=== PATIENT | female | born 1945 | race Caucasian/White ===

== ENCOUNTER → 2016-11-07 | Outpatient (CLI) | payer OTHER | LOC: FIMAGING 14:07 | PROVIDERS: ATTEND Physician Assistant Surgical | DX: Z98.1 Arthrodesis status (principal) ==

== ENCOUNTER → 2016-11-13 | Outpatient (CLI) | payer OTHER | LOC: FIMAGING 11:54 | PROVIDERS: ATTEND Physician Assistant Medical | DX: R91.8 Other nonspecific abnormal finding of lung field (principal); Z87.891 Personal history of nicotine dependence; I77.810 Thoracic aortic ectasia; I25.10 Atherosclerotic heart disease of native coronary artery without angina pectoris ==

== ENCOUNTER 2017-01-28 10:23 | Inpatient (IN) | payer OTHER ==
[2017-01-28] MEDS ORDERED: ONDANSETRON 4 MG/2 ML VIAL IVP PRN (10:54)
[2017-01-28] MEDS ORDERED: LIDOCAINE 1% 2 ML INJ ID PRN (11:00)
[2017-01-28] MEDS ORDERED: NS 500 ML IV SCH (11:00)
--- NOTE | 2017-01-28 11:20 | GHP ---
[f rep st] PREOP HISTORY AND PHYSICAL DATE OF ADMISSION: 01/28/2017 HISTORY OF PRESENT ILLNESS: The patient is a pleasant 72-year-old female, who underwent a thoracotomy with right lower lobe biopsy for a suspicious lung mass. No gross correlate was found at the time of surgery. Ultimately, pathology showed a calcified nodule consistent with a remote granuloma. She returned to our office today for routine postoperative followup. She is complaining of some pain and some shortness of breath at nighttime. She had been checking her oxygenation and was desaturating, at one time down to 72 at night. She used her 's oxygen. She says that she was up to 95% just yesterday during the day. The patient was sent for an x-ray prior to her appointment, and this revealed a pleural effusion and a significant pneumothorax. She denies fevers or chills. PAST MEDICAL HISTORY/SURGICAL HISTORY: Includes right lower lobe lobectomy as described above. Also history of a lumbar spinal fusion, total abdominal hysterectomy, C diff colitis in 2014, history of depression with anxiety, GERD, hypercholesteremia, pneumonia, and aortic aneurysm. MEDICATIONS: At home include: Oxycodone since her recent surgery, also vitamin B, simvastatin, fish oil, omeprazole, vitamin D3, calcium and vitamin C. ALLERGIES: Include amoxicillin, ciprofloxacin, clindamycin, penicillins and calamari. SOCIAL HISTORY: [place] [address] [place]. FAMILY HISTORY: No significant medical history. REVIEW OF SYSTEMS: A 10-point review of systems is negative aside from that noted in HPI. PHYSICAL EXAMINATION: GENERAL: Reveals a well-developed, well-nourished, 72- year-old female, who appears her stated age, is well groomed and in no acute distress. HEENT: Normocephalic, atraumatic. No pallor. Pupils equal and round. Sclerae white. CHEST: Decreased breath sounds and fremitus on the right side. Incision clean, dry, intact without erythema. CARDIAC: Regular rate and rhythm. ABDOMEN: Soft, nontender. EXTREMITIES: Warm and dry without edema. IMPRESSION: This is a 72-year-old female, status post right lower lobe lobectomy on 01/15/2017, now with a pneumothorax and pleural effusion. PLAN: Admit the patient for placement of a chest tube. We will do this in the Endoscopy suite today as soon as possible. The patient is currently comfortable. We have told her to expect at least a 2- to 3-day hospital stay. Risks and options have been discussed and she requests to proceed. Patient was also seen and examined by Dr. Smith. Also, we removed her jessie today in the clinic. /[id number]/MODL MTDD
[2017-01-28] MEDS ORDERED: LIDO/EPI 1% **Not for Epidural 20 ML MDV ONE (12:07)
[2017-01-28] MEDS ORDERED: MIDAZOLAM 2 MG/2 ML VIAL ONE (12:08)
[2017-01-28] MEDS ORDERED: fentaNYL 100 MCG/2 ML INJ ONE (12:08)
[2017-01-28] MEDS ORDERED: HYDROmorphONE/DILAUDID 1 MG/ML SYR ONE (13:00)
[2017-01-28] MEDS: HYDROmorphONE/DILAUDID 1 MG/ML SYR IVP PRN ×2 (13:03→13:21)
[2017-01-28] MEDS: KETOROLAC 15 MG/1 ML SDV IVP PRN (13:54)
[2017-01-28] MEDS: OXYCODONE/APAP 5/325 TAB PO PRN ×3 (14:33→22:00)
[2017-01-28] MEDS ORDERED: ESTROGENS CONJUGATED VG SCH (18:00)
[2017-01-28] MEDS ORDERED: CALCIUM 500 MG PO SCH (21:00)
[2017-01-28] MEDS ORDERED: NON-FORMULARY NEW DRUG (Simvastatin [Zocor] 20 MG) PO SCH (21:00)
[2017-01-28] MEDS ORDERED: NON-FORMULARY NEW DRUG (Fish Oil/Dha/Epa [Fish Oil 1,200 Mg Fish Oil] 1 EACH) PO SCH (21:00)
[2017-01-28] MEDS: ATORVASTATIN CALCIUM 10 MG TAB PO SCH (22:00)
[2017-01-28] MEDS: CALCIUM CARBONATE 500 MG TAB PO SCH (22:00)
[2017-01-28] MEDS: ASCORBIC ACID 500 MG TAB PO SCH (22:00)
[2017-01-28] MEDS: OMEGA-3 FATTY ACIDS 1,000 MG CAP PO SCH (22:00)
[2017-01-28] MEDS: DOCUSATE SODIUM 100 MG CAP PO SCH (22:00)
[2017-01-29] MEDS: KETOROLAC 15 MG/1 ML SDV IVP PRN ×2 (02:30→21:45)
[2017-01-29] MEDS: OXYCODONE/APAP 5/325 TAB PO PRN ×5 (05:21→23:23)
[2017-01-29] MEDS ORDERED: Herbals/Supplements -Info Only PO SCH (09:00)
[2017-01-29] MEDS ORDERED: NON-FORMULARY NEW DRUG (Esomeprazole Mag Trihydrate [Nexium] 40 MG) PO SCH (09:00)
[2017-01-29] MEDS: PANTOPRAZOLE SODIUM 40 MG TAB PO SCH (09:48)
[2017-01-29] MEDS: ASCORBIC ACID 500 MG TAB PO SCH ×2 (09:48→19:45)
[2017-01-29] MEDS: OMEGA-3 FATTY ACIDS 1,000 MG CAP PO SCH ×2 (09:48→19:46)
[2017-01-29] MEDS: DOCUSATE SODIUM 100 MG CAP PO SCH ×2 (09:48→19:46)
[2017-01-29] MEDS: CALCIUM CARBONATE 500 MG TAB PO SCH ×2 (09:48→19:46)
[2017-01-29] MEDS: VITAMIN B COMPLEX 1 EA CAP/TAB PO SCH (09:48)
--- NOTE | 2017-01-29 13:49 | GCON ---
[f rep st] CONSULTATION HISTORY OF PRESENT ILLNESS: The patient is a 72-year-old female originally referred to [facility] for evaluation of an abnormal CT scan. She had been following an ascending aortic dilatation with annual films including July 2015 and October 2016. Both of these films revealed a ground-glass op acity in the right lower lobe that appeared to have increased in size between those 2 dates from 1.3 to 1.7 cm. 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 She had also reported a remote history of pneumonia in the right lower lobe leaving an abnorm ality there since 1998. It has been seen on multiple scans in the past though she said she never sy d a biopsy. She had no symptoms but did have a substantial smoking history having quit at least 10 years prior. 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 Subsequently she had pulmonary function tests which were totally normal. She wa s referred to Dr. Smith for either wedge resection or lobectomy. The surgery itself occurred on , and she did undergo a lobectomy on the right side. There was also a wedge resection of a k nown right upper lobe granuloma as well as a biopsy of some abnormality seen on her diaphragm. That procedure itself seemed to be uncomplicated, and the pathology was benign in all cases. However, s he developed hypoxemia and chest discomfort, was seen in clinic, followed by a chest x-ray that show ed a pneumothorax on that side. She was subsequently readmitted, and a chest tube was placed on . She tolerated this procedure reasonably well and states that her pain is controlled right now using Percocet and Toradol without any difficulty. REVIEW OF SYSTEMS: Otherwise negative PAST MEDICAL HISTORY: Includes aortic aneurysm in the thorax as described above, hypercholesterolem ia, the pulmonary nodule as described. PAST SURGICAL HISTORY: Includes the recent thoracotomy. SOCIAL HISTORY: She has some alcohol but no alcohol-related illnesses. She is a former smoker of 1 -1/2 packs per day but quit in 2006. She was born in [place] and no IV drug use. FAMILY HISTORY: Noncontributory. ALLERGIES: Include penicillin. CURRENT MEDICATIONS: Tylenol, vitamin C, Lipitor, Colace, Dilaudid, Toradol, fish oil, Zofran, Perc ocet, Protonix. PHYSICAL EXAMINATION: VITAL SIGNS: She is afebrile. Heart rate was 81, blood pressure 131/64, res pirations 16, oxygen saturation was 95% on room air. GENERAL: She was awake and alert in no appare nt distress and able to speak in full sentences without using accessory muscles for breathing. HEEN T: Pupils equally round and reactive to light. Not icteric and not injected. Mucous membranes are moist without erythema or exudate. NECK: Supple without adenopathy or jugular vein distention. B reath sounds were mostly clear to auscultation bilaterally without wheezes, rubs, or rales. HEART: Regular rate and rhythm without murmurs. ABDOMEN: Soft, nontender, nondistended without hepatospl enomegaly. EXTREMITIES: Show no clubbing, cyanosis, or edema. NEUROLOGIC: Nonfocal, including cr anial nerves and deep tendon reflexes. SKIN: Warm and dry without evidence of rash. Chest tube did not show evidence of leak. OTHER OBJECTIVE DATA: Chest x-ray performed this morning shows moderate right pneumothorax with a c hest tube in the right lung base. The apex of the lung is about 4 cm from the top of the chest wall . ASSESSMENT AND PLAN: 1. Postoperative pneumothorax: The lung does not appear to be expanding very well. The chest tube may need to be repositioned or a needle drainage of the apical region may be necessary. I will try to discuss this with Dr. Smith in the near future. It may resolve on its own, or it is possible th at the lung will not fully re-expand in that space until a later date. In the short term, I suggest ed that she remain on oxygen not because of her saturation being low but to facilitate reabsorption of air out of that space. 2. Lung nodules: These are thankfully benign and not associated with cancer so no ongoing followup will be required. /[id number]/MODL
--- NOTE | 2017-01-29 19:02 | SOAPPROG ---
SOAP Progress Note Assessment/Plan: Assessment: COMFORTABLE IN DOING WELL BUT LUNG STILL NOT COMPLETELY EXPANDED/NO AIR LEAK ON CHEST TUBE DRAINAGE/DRAINAGE VOLUME DECREASED MAY NEED ADDITIONAL CHEST TUBE IF NOT IMPROVED Plan: CHEST X-RAY IN THE A.M. 01/29/17 19:01 Objective: Vital Signs Temp Pulse Resp BP Pulse Ox 36.3 C 76 13 127/80 H 98 01/29/17 16:00 01/29/17 16:00 01/29/17 16:00 01/29/17 16:00 01/29/17 16:00 01/28/17 01/29/17 01/30/17 05:59 05:59 05:59 Intake Total 810 Output Total 820 650 Balance -820 160 ICD10 Worksheet Patient Problems: Problems Problem Status Onset C. difficile colitis Acute 12/30/14
[2017-01-29] MEDS: ATORVASTATIN CALCIUM 10 MG TAB PO SCH (19:46)
[2017-01-29] MEDS ORDERED: CANN-EASE 2 GM TUBE TP PRN (23:30)
[2017-01-30] MEDS: OXYCODONE/APAP 5/325 TAB PO PRN ×4 (04:25→19:24)
--- NOTE | 2017-01-30 08:59 | SOAPPROG ---
SOAP Progress Note Assessment/Plan: Assessment: COMFORTABLE IN DOING WELL BUT LUNG STILL NOT COMPLETELY EXPANDED/NO AIR LEAK ON CHEST TUBE DRAINAGE/DRAINAGE VOLUME DECREASED MAY NEED ADDITIONAL CHEST TUBE IF NOT IMPROVED Plan: CHEST X-RAY IN THE A.M. 01/29/17 19:01 01/30/17 08:57 COMFORTABLE/ VS STABLE/ NO AIR LEAK BUT STILL NOT FULLY EXPANDED/ WILL PLACE APICAL PNEUMOCATH TODAY Objective: Vital Signs Temp Pulse Resp BP Pulse Ox 36.3 C 73 17 139/84 H 97 01/30/17 04:24 01/30/17 04:24 01/30/17 04:24 01/30/17 04:24 01/30/17 04:24 01/29/17 01/30/17 01/31/17 05:59 05:59 05:59 Intake Total 1310 500 Output Total 820 2440 Balance -820 -1130 500 ICD10 Worksheet Patient Problems: Problems Problem Status Onset C. difficile colitis Acute 12/30/14
[2017-01-30] MEDS: OMEGA-3 FATTY ACIDS 1,000 MG CAP PO SCH ×2 (10:08→20:28)
[2017-01-30] MEDS: DOCUSATE SODIUM 100 MG CAP PO SCH ×2 (10:09→20:28)
[2017-01-30] MEDS: VITAMIN B COMPLEX 1 EA CAP/TAB PO SCH (10:09)
[2017-01-30] MEDS: PANTOPRAZOLE SODIUM 40 MG TAB PO SCH (10:09)
[2017-01-30] MEDS: ASCORBIC ACID 500 MG TAB PO SCH ×2 (10:09→20:28)
[2017-01-30] MEDS: CALCIUM CARBONATE 500 MG TAB PO SCH ×2 (10:09→20:28)
[2017-01-30] MEDS ORDERED: LIDO/EPI 1% **Not for Epidural 20 ML MDV ONE (11:04)
[2017-01-30] MEDS ORDERED: MIDAZOLAM 2 MG/2 ML VIAL ONE (11:19)
[2017-01-30] MEDS ORDERED: fentaNYL 100 MCG/2 ML INJ ONE (11:19)
--- NOTE | 2017-01-30 15:21 | POSTOPPROG ---
Post Op Note Date of Operation: 01/30/17 Surgeon: Juanjose Smith Finance Manager: Radha Ruiz Anesthesiologist: Marko Montoya Anesthesia: GET(General Endotracheal) Pre-op Diagnosis: persistent pneumothorax Post-op Diagnosis: same Procedure: pneumocatheter placement Findings: lung re-expanded upon port procedure CXR Inf/Abcess present in the surg proc area at time of surgery?: No EBL: Minimal Complications: none Drains: Other (pneumocatheter)
[2017-01-30] MEDS: KETOROLAC 15 MG/1 ML SDV IVP PRN ×2 (15:44→23:11)
--- NOTE | 2017-01-30 15:51 | PDINTPN ---
Assistant [employer] Manager Progress Note Assessment/Plan: Assessment/PLAN: 72 F with growing ground glass infiltrate on screening cardiac CT originally admitted for resection and ended up with RLL lobectomy, wedge resection of RUL granuloma, and biopsy of right diaphragmatic nodule- all of which were benign. She was dc'd home which was 8975 feet and came to routine clinic followup where a CXR showed a right PTX. She was admitted for chest tube placement, but had incomplete expansion, so a second tube was placed 01/30/17. * PTX after procedure, likely exacerbated by increased altitude. Second tube resulted in near-complete resolution. Management per Dr. Smith, but ongoing observation for resolution and removal of tubes. Pain control adequate * Hypoxia- her saturations are fine on room air, but would continue with O2 to promote reabsorption * Abnormal CT scan- benign lesions. Objective: Vital Signs Temp Pulse Resp BP Pulse Ox 36.8 C 70 17 133/88 H 94 01/30/17 13:07 01/30/17 13:07 01/30/17 13:07 01/30/17 13:07 01/30/17 13:07 01/29/17 01/30/17 01/31/17 05:59 05:59 05:59 Intake Total 1310 500 Output Total 820 2440 Balance -820 -1130 500 Physical Exam - Physical Exam General Appearance: WD/WN, alert, no apparent distress EENT: PERRL/EOMI Neck: supple Respiratory: crackles (few right sided), No respiratory distress Cardiac/Chest: regular rate, rhythm, No edema Abdomen: non-tender, soft, No distended Skin: normal color, warm/dry Lymphatic: no adenopathy Extremities: No pedal edema Neuro/Psych: alert, normal mood/affect, oriented x 3 ICD10 Worksheet Patient Problems: Problems Problem Status Onset C. difficile colitis Acute 12/30/14
[2017-01-30] MEDS: ATORVASTATIN CALCIUM 10 MG TAB PO SCH (20:28)
[2017-01-31] MEDS: OXYCODONE/APAP 5/325 TAB PO PRN ×4 (00:50→19:37)
[2017-01-31] MEDS: KETOROLAC 15 MG/1 ML SDV IVP PRN ×2 (05:35→12:13)
[2017-01-31] MEDS: DOCUSATE SODIUM 100 MG CAP PO SCH ×2 (08:51→19:37)
[2017-01-31] MEDS: VITAMIN B COMPLEX 1 EA CAP/TAB PO SCH (08:51)
[2017-01-31] MEDS: OMEGA-3 FATTY ACIDS 1,000 MG CAP PO SCH ×2 (08:51→19:37)
[2017-01-31] MEDS: CALCIUM CARBONATE 500 MG TAB PO SCH ×2 (08:51→19:37)
[2017-01-31] MEDS: PANTOPRAZOLE SODIUM 40 MG TAB PO SCH (08:51)
[2017-01-31] MEDS: ASCORBIC ACID 500 MG TAB PO SCH ×2 (08:51→19:37)
--- NOTE | 2017-01-31 11:45 | SOAPPROG ---
SOAP Progress Note Assessment/Plan: Assessment: s/p wedge resection who returned with pneumo/effusion chest tube initially put out serous fluid but still had residual apical pneumo Pneumocath placed which nearly resolved the pneumothorax However, chest x ray this am is worse. I have asked dr eugene to place a larger bore chest tube under fluoro directed apically - the other two tubes can be removed S: Feeling better today. Disappointed about chest x ray results Both chest tubes examined separately and no air leak. Put back to Y connector suction Lungs with decreased breath sounds on right, clear on left Regular rate Plan: 01/31/17 11:40 Objective: Vital Signs Temp Pulse Resp BP Pulse Ox 36.6 C 70 12 126/81 H 96 01/31/17 07:53 01/31/17 07:53 01/31/17 07:53 01/31/17 07:53 01/31/17 07:53 01/30/17 01/31/17 02/01/17 05:59 05:59 05:59 Intake Total 1310 2130 Output Total 2440 2340 Balance -1130 -210 ICD10 Worksheet Patient Problems: Problems Problem Status Onset C. difficile colitis Acute 12/30/14
[2017-01-31] MEDS ORDERED: LIDOCAINE 1% 300 MG/30 ML SDV ONE (14:38)
[2017-01-31] MEDS ORDERED: fentaNYL 100 MCG/2 ML INJ ONE (15:17)
[2017-01-31] MEDS ORDERED: MIDAZOLAM 2 MG/2 ML VIAL ONE (15:18)
--- NOTE | 2017-01-31 16:21 | PDINTPN ---
Color Making Supervisor Progress Note Assessment/Plan: Assessment/PLAN: 72 F with growing ground glass infiltrate on screening cardiac CT originally admitted for resection and ended up with RLL lobectomy, wedge resection of RUL granuloma, and biopsy of right diaphragmatic nodule- all of which were benign. She was dc'd home which was 8975 feet and came to routine clinic followup where a CXR showed a right PTX. She was admitted for chest tube placement, but had incomplete expansion, so a second tube was placed 01/30/17. * PTX after procedure, likely exacerbated by increased altitude. Second tube resulted in near-complete resolution, but worse this AM. Back to IR for new chest tube * Hypoxia- her saturations are fine on room air, but would continue with O2 to promote reabsorption * Abnormal CT scan- benign lesions. 01/31/17 16:20 Objective: Vital Signs Temp Pulse Resp BP Pulse Ox 36.7 C 81 16 139/73 H 100 01/31/17 11:54 01/31/17 15:44 01/31/17 15:44 01/31/17 11:54 01/31/17 15:44 01/30/17 01/31/17 02/01/17 05:59 05:59 05:59 Intake Total 1310 2130 Output Total 2440 2340 Balance -1130 -210 Physical Exam - Physical Exam General Appearance: no apparent distress EENT: PERRL/EOMI Neck: supple Respiratory: lungs clear, normal breath sounds, No respiratory distress Cardiac/Chest: regular rate, rhythm, No edema Abdomen: soft, No distended Skin: normal color, warm/dry Lymphatic: no adenopathy Extremities: No pedal edema Neuro/Psych: alert, normal mood/affect, oriented x 3 ICD10 Worksheet Patient Problems: Problems Problem Status Onset C. difficile colitis Acute 12/30/14
[2017-01-31] MEDS: ATORVASTATIN CALCIUM 10 MG TAB PO SCH (19:37)
[2017-02-01] MEDS: OXYCODONE/APAP 5/325 TAB PO PRN ×6 (00:36→22:06)
--- NOTE | 2017-02-01 08:39 | SOAPPROG ---
SOAP Progress Note Assessment/Plan: Assessment: s/p wedge resection who returned with pneumo/effusion Had chest tube placed by IR yesterday and other 2 tubes removed. CXR improved Continue to suction due to air leak Lost IV access. Only need to replace IV if needs IV meds Patient is frustrated. Offered patient rep, declined for now. May ambulate off suction S: Feeling out of sorts. [place] abandoned last night. Some pain Lungs with breath sounds bilaterally Regular rate Changed saturated dressing by old chest tube site. 1 chamber air leak. Plan: 01/31/17 11:40 02/01/17 08:37 Objective: Vital Signs Temp Pulse Resp BP Pulse Ox 36.8 C 82 20 173/93 H 96 02/01/17 07:48 02/01/17 07:48 02/01/17 07:48 02/01/17 07:48 02/01/17 07:48 01/31/17 02/01/17 02/02/17 05:59 05:59 05:59 Intake Total 2130 1480 Output Total 2340 1023 Balance -210 457 ICD10 Worksheet Patient Problems: Problems Problem Status Onset C. difficile colitis Acute 12/30/14
[2017-02-01] MEDS: PANTOPRAZOLE SODIUM 40 MG TAB PO SCH (09:12)
[2017-02-01] MEDS: CALCIUM CARBONATE 500 MG TAB PO SCH ×2 (09:13→19:41)
[2017-02-01] MEDS: OMEGA-3 FATTY ACIDS 1,000 MG CAP PO SCH ×2 (09:13→19:41)
[2017-02-01] MEDS: ASCORBIC ACID 500 MG TAB PO SCH ×2 (09:13→19:41)
[2017-02-01] MEDS: VITAMIN B COMPLEX 1 EA CAP/TAB PO SCH (09:14)
[2017-02-01] MEDS: DOCUSATE SODIUM 100 MG CAP PO SCH ×2 (09:14→19:41)
[2017-02-01] MEDS: LIDOCAINE 5% 1 EA PATCH TD SCH (09:14)
[2017-02-01] MEDS: IBUPROFEN 800 MG TAB PO SCH ×3 (09:20→22:06)
--- NOTE | 2017-02-01 14:50 | PDINTPN ---
[employer]ward[employer] Progress Note Assessment/Plan: Assessment/PLAN: 72 F with growing ground glass infiltrate on screening cardiac CT originally admitted for resection and ended up with RLL lobectomy, wedge resection of RUL granuloma, and biopsy of right diaphragmatic nodule- all of which were benign. She was dc'd home which was 8975 feet and came to routine clinic followup where a CXR showed a right PTX. She was admitted for chest tube placement, but had incomplete expansion, so a second tube was placed 01/30/17. * PTX after procedure, likely exacerbated by increased altitude. Second tube resulted in near-complete resolution, but worse on 01/31, so new apical chest tube placed and others removed. Todays CXR shows tube coiled at apex with small residual PTX. Pleurevac shows air leak with cough only. May need to pull back on tube eventually depending on course. She is very frustrated (though calm and very nice) about her ordeal and felt a bit neglected by staff nurse overnight. Pain controlled this am with ibuprofen (toradol dc'd). IV access was lost and unable to regain, so keeping with po meds for now. * Hypoxia- her saturations are fine on room air, but would continue with O2 to promote reabsorption * Abnormal CT scan- benign lesions. Objective: Vital Signs Temp Pulse Resp BP Pulse Ox 36.6 C 85 16 110/68 94 02/01/17 11:27 02/01/17 11:27 02/01/17 11:27 02/01/17 11:27 02/01/17 11:27 01/31/17 02/01/17 02/02/17 05:59 05:59 05:59 Intake Total 2130 1480 Output Total 2340 1023 Balance -210 457 Physical Exam - Physical Exam General Appearance: WD/WN, alert, no apparent distress EENT: PERRL/EOMI Neck: supple Respiratory: lungs clear, decreased breath sounds Cardiac/Chest: regular rate, rhythm, No edema Abdomen: normal bowel sounds, non-tender, soft, No distended Skin: normal color, warm/dry Lymphatic: no adenopathy Extremities: No pedal edema Neuro/Psych: alert, normal mood/affect, oriented x 3 ICD10 Worksheet Patient Problems: Problems Problem Status Onset C. difficile colitis Acute 12/30/14
[2017-02-01] MEDS: ATORVASTATIN CALCIUM 10 MG TAB PO SCH (19:40)
[2017-02-01] MEDS: PATCH REMOVAL 1 EA PATCH TD SCH (22:38)
[2017-02-02] MEDS: OXYCODONE/APAP 5/325 TAB PO PRN ×5 (01:54→21:05)
[2017-02-02] MEDS: IBUPROFEN 800 MG TAB PO SCH ×3 (06:07→21:08)
[2017-02-02] MEDS: OMEGA-3 FATTY ACIDS 1,000 MG CAP PO SCH ×2 (10:13→20:52)
[2017-02-02] MEDS: ASCORBIC ACID 500 MG TAB PO SCH ×2 (10:13→20:52)
[2017-02-02] MEDS: DOCUSATE SODIUM 100 MG CAP PO SCH ×2 (10:13→21:09)
[2017-02-02] MEDS: LIDOCAINE 5% 1 EA PATCH TD SCH (10:14)
[2017-02-02] MEDS: VITAMIN B COMPLEX 1 EA CAP/TAB PO SCH (10:14)
[2017-02-02] MEDS: PANTOPRAZOLE SODIUM 40 MG TAB PO SCH (10:14)
[2017-02-02] MEDS: CALCIUM CARBONATE 500 MG TAB PO SCH ×2 (10:14→20:52)
--- NOTE | 2017-02-02 14:28 | SOAPPROG ---
SOAP Progress Note Assessment/Plan: Assessment: Plan: Objective: Vital Signs Temp Pulse Resp BP Pulse Ox 37.2 C 78 17 132/83 H 93 02/02/17 11:39 02/02/17 11:39 02/02/17 11:39 02/02/17 11:39 02/02/17 11:39 02/01/17 02/02/17 02/03/17 05:59 05:59 05:59 Intake Total 1480 200 500 Output Total 1023 2155 350 Balance 457 -1955 150 ICD10 Worksheet Patient Problems: Problems Problem Status Onset C. difficile colitis Acute 12/30/14
[2017-02-02] MEDS: ATORVASTATIN CALCIUM 10 MG TAB PO SCH (20:52)
[2017-02-02] MEDS: PATCH REMOVAL 1 EA PATCH TD SCH (21:08)
[2017-02-03] MEDS: OXYCODONE/APAP 5/325 TAB PO PRN ×4 (04:22→19:00)
[2017-02-03] MEDS: IBUPROFEN 800 MG TAB PO SCH (05:41)
[2017-02-03] MEDS: LIDOCAINE 5% 1 EA PATCH TD SCH (08:40)
[2017-02-03] MEDS: OMEGA-3 FATTY ACIDS 1,000 MG CAP PO SCH ×2 (08:44→21:44)
[2017-02-03] MEDS: ASCORBIC ACID 500 MG TAB PO SCH ×2 (08:44→21:44)
[2017-02-03] MEDS: CALCIUM CARBONATE 500 MG TAB PO SCH ×2 (08:45→21:44)
[2017-02-03] MEDS: PANTOPRAZOLE SODIUM 40 MG TAB PO SCH (08:45)
[2017-02-03] MEDS: DOCUSATE SODIUM 100 MG CAP PO SCH ×2 (08:45→21:41)
[2017-02-03] MEDS: VITAMIN B COMPLEX 1 EA CAP/TAB PO SCH (08:45)
[2017-02-03] MEDS: IBUPROFEN 600 MG TAB PO PRN ×2 (15:27→21:43)
--- NOTE | 2017-02-03 16:47 | SOAPPROG ---
SOAP Progress Note Assessment/Plan: Assessment/Plan: 72 Y F RLL resection, readmitted with PTX and pleural effusion after returning home to altitude. Seen with Dr. Smith. Many questions answered. Lung expanded now with single apical tube, but does have an air leak. Need to continue to suction. S: Understandably frustrated. No SOB. Pain controlled. O: +air leak min drainage, serous wounds ok no wob 02/03/17 16:45 Objective: Vital Signs Temp Pulse Resp BP Pulse Ox 36.9 C 103 H 20 139/82 H 92 02/03/17 15:33 02/03/17 15:33 02/03/17 15:33 02/03/17 15:33 02/03/17 15:33 02/02/17 02/03/17 02/04/17 05:59 05:59 05:59 Intake Total 200 830 300 Output Total 2203 2989 282 Balance -2005 -1670 -200 ICD10 Worksheet Patient Problems: Problems Problem Status Onset C. difficile colitis Acute 12/30/14
[2017-02-03] MEDS: FAMOTIDINE 20 MG TAB PO SCH (21:42)
[2017-02-03] MEDS: ATORVASTATIN CALCIUM 10 MG TAB PO SCH (21:43)
[2017-02-03] MEDS: PATCH REMOVAL 1 EA PATCH TD SCH (21:49)
[2017-02-04] MEDS: OXYCODONE/APAP 5/325 TAB PO PRN ×2 (02:46→11:23)
[2017-02-04] MEDS: IBUPROFEN 600 MG TAB PO PRN ×3 (07:11→20:15)
[2017-02-04] MEDS: VITAMIN B COMPLEX 1 EA CAP/TAB PO SCH (07:55)
[2017-02-04] MEDS: PANTOPRAZOLE SODIUM 40 MG TAB PO SCH (07:55)
[2017-02-04] MEDS: FAMOTIDINE 20 MG TAB PO SCH ×2 (07:55→20:16)
[2017-02-04] MEDS: OMEGA-3 FATTY ACIDS 1,000 MG CAP PO SCH ×2 (07:56→20:15)
[2017-02-04] MEDS: ASCORBIC ACID 500 MG TAB PO SCH ×2 (07:56→20:15)
[2017-02-04] MEDS: DOCUSATE SODIUM 100 MG CAP PO SCH ×3 (07:56→20:16)
[2017-02-04] MEDS: CALCIUM CARBONATE 500 MG TAB PO SCH ×2 (07:56→20:15)
[2017-02-04] MEDS: LIDOCAINE 5% 1 EA PATCH TD SCH (07:57)
[2017-02-04] MEDS ORDERED: BACITRACIN OINTMENT 1 PACKET TP ONE (10:14)
--- NOTE | 2017-02-04 11:47 | SOAPPROG ---
SOAP Progress Note Assessment/Plan: Assessment/Plan: 72 Y F RLL resection, readmitted with PTX and pleural effusion after returning home to altitude. Still an air leak. Will get CXR in am. Continue CT to suction. S: Trying to stay in good spirits. Family brought a goody bag with things to do. No SOB. Pain controlled. O: +air leak min drainage, serous wounds ok no wob 02/04/17 11:46 Objective: Vital Signs Temp Pulse Resp BP Pulse Ox 37.0 C 72 17 119/72 97 02/04/17 07:40 02/04/17 07:40 02/04/17 07:40 02/04/17 07:40 02/04/17 07:40 02/03/17 02/04/17 02/05/17 05:59 05:59 05:59 Intake Total 830 1150 Output Total 4764 1220 Balance -1670 -70 ICD10 Worksheet Patient Problems: Problems Problem Status Onset C. difficile colitis Acute 12/30/14
--- NOTE | 2017-02-04 18:24 | GOP ---
[f rep st] OPERATIVE REPORT DATE OF OPERATION: 01/28/2017 SURGEON: Juanjose Smith MD SPORTS ANCHOR: Radha Ruiz P.A.-C. PREOPERATIVE DIAGNOSIS: Right hemopneumothorax. POSTOPERATIVE DIAGNOSIS: Right hemopneumothorax. PROCEDURE PERFORMED: Right tube thoracostomy. FINDINGS: The patient was found to have over 600 mL of serous fluid. No real blood. A pneumothora x. ESTIMATED BLOOD LOSS: Negligible. DESCRIPTION OF PROCEDURE: The patient was taken to the special procedure room where she received sa tisfactory sedation with Versed and fentanyl. She was prepped and draped in the usual sterile fashi on. A short incision was made using 1% Xylocaine local infiltration over the 6th intercostal space in th e midaxillary line. Dissection extended up over the rib into the intercostal muscles, which were bl untly dissected and the chest wall was penetrated in that area, again using Xylocaine local for infi ltration. This released a fair amount of serous fluid and air. A #24-Kyrgyz chest tube was brought in through this incision and placed in the pleural space, with evacuation of nearly a liter of sero us fluid. It was secured to the exit site with 2-0 silk sutures and connected to a Pleur-Evac drain age system. She tolerated the procedure well. There were no complications. She was taken back to her room in g ood condition. Chest x-ray showed partial expansion of the lung and drainage of the effusion. COMPLICATIONS: There were no complications. /[id number]/MODL
[2017-02-04] MEDS: ATORVASTATIN CALCIUM 10 MG TAB PO SCH (20:15)
[2017-02-04] MEDS: PATCH REMOVAL 1 EA PATCH TD SCH (20:33)
[2017-02-05] MEDS: IBUPROFEN 600 MG TAB PO PRN ×3 (06:05→21:48)
[2017-02-05] MEDS: DOCUSATE SODIUM 100 MG CAP PO SCH ×2 (09:19→20:50)
[2017-02-05] MEDS: ASCORBIC ACID 500 MG TAB PO SCH ×2 (09:19→20:48)
[2017-02-05] MEDS: OMEGA-3 FATTY ACIDS 1,000 MG CAP PO SCH ×2 (09:20→20:47)
[2017-02-05] MEDS: CALCIUM CARBONATE 500 MG TAB PO SCH ×2 (09:25→20:46)
[2017-02-05] MEDS: VITAMIN B COMPLEX 1 EA CAP/TAB PO SCH (09:25)
[2017-02-05] MEDS: PANTOPRAZOLE SODIUM 40 MG TAB PO SCH (09:25)
[2017-02-05] MEDS: OXYCODONE/APAP 5/325 TAB PO PRN (09:31)
[2017-02-05] MEDS: LIDOCAINE 5% 1 EA PATCH TD SCH (09:38)
[2017-02-05] MEDS: FAMOTIDINE 20 MG TAB PO SCH ×2 (09:39→20:48)
--- NOTE | 2017-02-05 10:37 | GPN ---
[f rep st] PROCEDURE NOTE DATE OF PROCEDURE: 01/30/2017 NAME OF PROCEDURE: Pneumocath placement to the right chest. MATERIALS RESEARCH ENGINEER: Radha Ruiz, PAC. INDICATIONS: The patient had a persistent right apical pneumothorax despite a larger chest tube hav ing been placed previously. DESCRIPTION OF PROCEDURE: Patient was sedated with some fentanyl and Versed. She was prepped and dr aped in the usual sterile fashion. The area was infiltrated with 0.5% Marcaine. A tiny incision was made over the 4th intercostal space in the anterior axillary line. A direct insertion was then done with a Pneumocath 10-Arabic catheter. This was placed in the apex of the chest with some obvious angelica cuation of air. It was secured at the skin exit site with 2-0 silk sutures and was connected to a [employer] imlich valve. Chest x-ray following the procedure showed full resolution of the pneumothorax and ful l expansion of the lung. She tolerated procedure quite well. She was taken back to her room in good condition. There were no complications. /[id number]/MODL
--- NOTE | 2017-02-05 12:51 | SOAPPROG ---
SOAP Progress Note Assessment/Plan: Assessment: 72-year-old female status post right lower lobe lung resection, readmitted with pneumothorax and pleural effusion Patient reports no change in symptoms, pain is very well controlled, no increased shortness of breath. Trying to remain in good spirits but frustrated with continue his persistent air leak. Physical exam Patient alert, very comfortable sitting up in bed, right chest tube in place, no signs of respiratory distress, no use of accessory muscles Chest right chest tube in place anteriorly, incisions clean dry and intact, no signs of leak around tube or with incisions. Small amount of crackles right lung base compared to left. Chest x-ray demonstrates unchanged small right apical pneumothorax, right lower lobe atelectasis Plan: Continue chest tube to suction given presence leak 02/05/17 12:49 Objective: Vital Signs Temp Pulse Resp BP Pulse Ox 36.8 C 72 18 129/69 H 99 02/05/17 08:00 02/05/17 08:00 02/05/17 08:00 02/05/17 08:00 02/05/17 08:00 02/04/17 02/05/17 02/06/17 05:59 05:59 05:59 Intake Total 1150 1920 Output Total 1220 1200 Balance -70 720 ICD10 Worksheet Patient Problems: Problems Problem Status Onset C. difficile colitis Acute 12/30/14
[2017-02-05] MEDS: ATORVASTATIN CALCIUM 10 MG TAB PO SCH (20:48)
[2017-02-05] MEDS: PATCH REMOVAL 1 EA PATCH TD SCH (20:53)
[2017-02-06] MEDS: IBUPROFEN 600 MG TAB PO PRN ×3 (03:41→18:16)
[2017-02-06] MEDS: VITAMIN B COMPLEX 1 EA CAP/TAB PO SCH (08:31)
[2017-02-06] MEDS: ASCORBIC ACID 500 MG TAB PO SCH ×2 (08:31→21:35)
[2017-02-06] MEDS: FAMOTIDINE 20 MG TAB PO SCH ×3 (08:31→22:57)
[2017-02-06] MEDS: OMEGA-3 FATTY ACIDS 1,000 MG CAP PO SCH ×2 (08:31→21:35)
[2017-02-06] MEDS: PANTOPRAZOLE SODIUM 40 MG TAB PO SCH (08:31)
[2017-02-06] MEDS: CALCIUM CARBONATE 500 MG TAB PO SCH ×2 (08:31→21:35)
[2017-02-06] MEDS: DOCUSATE SODIUM 100 MG CAP PO SCH ×3 (08:32→22:57)
[2017-02-06] MEDS: LIDOCAINE 5% 1 EA PATCH TD SCH (08:32)
[2017-02-06] MEDS ORDERED: OXYCODONE/APAP 5/325 TAB PO PRN (16:03)
[2017-02-06] MEDS ORDERED: HYDROmorphONE/DILAUDID 1 MG/ML SYR IVP PRN (16:03)
--- NOTE | 2017-02-06 16:06 | SOAPPROG ---
SOAP Progress Note Assessment/Plan: Assessment: COMFORTABLE IN DOING WELL BUT LUNG STILL NOT COMPLETELY EXPANDED/NO AIR LEAK ON CHEST TUBE DRAINAGE/DRAINAGE VOLUME DECREASED MAY NEED ADDITIONAL CHEST TUBE IF NOT IMPROVED Plan: CHEST X-RAY IN THE A.M. 01/29/17 19:01 01/30/17 08:57 COMFORTABLE/ VS STABLE/ NO AIR LEAK BUT STILL NOT FULLY EXPANDED/ WILL PLACE APICAL PNEUMOCATH TODAY 02/06/17 16:05 Breath sounds equal but still small air leak/patient starting to get frustrated/ no obvious leak in the system but will change Pleur-Evac Objective: Vital Signs Temp Pulse Resp BP Pulse Ox 36.5 C 95 17 121/79 H 96 02/06/17 07:40 02/06/17 07:40 02/06/17 07:40 02/06/17 07:40 02/06/17 07:40 02/05/17 02/06/17 02/07/17 05:59 05:59 05:59 Intake Total 1920 1950 Output Total 1200 0606 Balance 720 -836 ICD10 Worksheet Patient Problems: Problems Problem Status Onset C. difficile colitis Acute 12/30/14
[2017-02-06] MEDS: ATORVASTATIN CALCIUM 10 MG TAB PO SCH (21:35)
[2017-02-06] MEDS: PATCH REMOVAL 1 EA PATCH TD SCH (21:36)
[2017-02-07] MEDS: IBUPROFEN 600 MG TAB PO PRN ×4 (00:14→20:25)
[2017-02-07] MEDS: FAMOTIDINE 20 MG TAB PO SCH ×2 (09:57→20:20)
[2017-02-07] MEDS: CALCIUM CARBONATE 500 MG TAB PO SCH ×2 (09:57→20:20)
[2017-02-07] MEDS: VITAMIN B COMPLEX 1 EA CAP/TAB PO SCH (09:57)
[2017-02-07] MEDS: OMEGA-3 FATTY ACIDS 1,000 MG CAP PO SCH ×2 (09:57→20:20)
[2017-02-07] MEDS: PANTOPRAZOLE SODIUM 40 MG TAB PO SCH (09:57)
[2017-02-07] MEDS: ASCORBIC ACID 500 MG TAB PO SCH ×2 (09:58→20:20)
[2017-02-07] MEDS: DOCUSATE SODIUM 100 MG CAP PO SCH ×2 (09:58→20:19)
[2017-02-07] MEDS: LIDOCAINE 5% 1 EA PATCH TD SCH (10:01)
--- NOTE | 2017-02-07 11:37 | SOAPPROG ---
SOAP Progress Note Assessment/Plan: Assessment/Plan: 72 Y F RLL resection, readmitted with PTX and pleural effusion after returning home to altitude. Seen walking in hallway. Also seen by Dr. Smith. Persistent air leak. Pleurovac system and dressings changed out yesterday. No leak when tube is occluded just outside of chest wall--suggests true air leak from lung rather than false leak from system. Will put to water seal today and get CXR later today. Return to suction if chest pain, SOB. S: Continues to try and have positive outlook. No CP or SOB. Wants to get home to use her newly repaired RV. O: +air leak min drainage, serous wounds ok no wob 02/07/17 11:34 Objective: Vital Signs Temp Pulse Resp BP Pulse Ox 36.7 C 73 16 103/64 94 02/07/17 06:00 02/07/17 07:47 02/07/17 07:47 02/07/17 07:47 02/07/17 07:47 02/06/17 02/07/17 02/08/17 05:59 05:59 05:59 Intake Total 1950 650 Output Total 9387 85 Balance -836 565 ICD10 Worksheet Patient Problems: Problems Problem Status Onset C. difficile colitis Acute 12/30/14
[2017-02-07] MEDS: OXYCODONE/APAP 5/325 TAB PO PRN (17:04)
[2017-02-07] MEDS: ATORVASTATIN CALCIUM 10 MG TAB PO SCH (20:19)
[2017-02-07] MEDS: PATCH REMOVAL 1 EA PATCH TD SCH (20:21)
[2017-02-08] MEDS: IBUPROFEN 600 MG TAB PO PRN ×3 (04:24→20:56)
[2017-02-08] MEDS: ASCORBIC ACID 500 MG TAB PO SCH ×2 (08:36→20:44)
[2017-02-08] MEDS: OMEGA-3 FATTY ACIDS 1,000 MG CAP PO SCH ×2 (08:36→20:42)
[2017-02-08] MEDS: VITAMIN B COMPLEX 1 EA CAP/TAB PO SCH (08:36)
[2017-02-08] MEDS: CALCIUM CARBONATE 500 MG TAB PO SCH ×2 (08:37→20:44)
[2017-02-08] MEDS: DOCUSATE SODIUM 100 MG CAP PO SCH ×2 (08:37→20:44)
[2017-02-08] MEDS: LIDOCAINE 5% 1 EA PATCH TD SCH (08:45)
[2017-02-08] MEDS: PANTOPRAZOLE SODIUM 40 MG TAB PO SCH (08:45)
[2017-02-08] MEDS: FAMOTIDINE 20 MG TAB PO SCH ×2 (09:03→20:43)
[2017-02-08] MEDS: OXYCODONE/APAP 5/325 TAB PO PRN (09:15)
--- NOTE | 2017-02-08 09:15 | SOAPPROG ---
SOAP Progress Note Assessment/Plan: Assessment/Plan: 72 Y F RLL resection, readmitted with PTX and pleural effusion after returning home to altitude. Increased PTX while on water seal. Return to suction today. S: Disappointed. No CP or SOB. Eating, having bowel movements. Not in pain. Walking well. O: +air leak min drainage, serous wounds ok no wob, decreased BS R, CTAL rrr abd soft, +BS 02/08/17 09:13 Objective: Vital Signs Temp Pulse Resp BP Pulse Ox 36.6 C 92 18 140/72 H 83 L 02/08/17 08:00 02/08/17 08:00 02/08/17 08:00 02/08/17 08:00 02/08/17 09:04 02/07/17 02/08/17 02/09/17 05:59 05:59 05:59 Intake Total 650 1850 Output Total 85 33 Balance 565 1850 -33 ICD10 Worksheet Patient Problems: Problems Problem Status Onset C. difficile colitis Acute 12/30/14
[2017-02-08] MEDS: ATORVASTATIN CALCIUM 10 MG TAB PO SCH (20:43)
[2017-02-08] MEDS: PATCH REMOVAL 1 EA PATCH TD SCH (20:45)
[2017-02-09] MEDS: IBUPROFEN 600 MG TAB PO PRN ×4 (04:22→23:13)
[2017-02-09] MEDS: LIDOCAINE 5% 1 EA PATCH TD SCH (09:35)
[2017-02-09] MEDS: ASCORBIC ACID 500 MG TAB PO SCH ×2 (09:36→20:54)
[2017-02-09] MEDS: CALCIUM CARBONATE 500 MG TAB PO SCH ×2 (09:36→20:54)
[2017-02-09] MEDS: FAMOTIDINE 20 MG TAB PO SCH ×2 (09:36→20:54)
[2017-02-09] MEDS: PANTOPRAZOLE SODIUM 40 MG TAB PO SCH (09:36)
[2017-02-09] MEDS: VITAMIN B COMPLEX 1 EA CAP/TAB PO SCH (09:36)
[2017-02-09] MEDS: OMEGA-3 FATTY ACIDS 1,000 MG CAP PO SCH ×2 (09:36→20:54)
[2017-02-09] MEDS: DOCUSATE SODIUM 100 MG CAP PO SCH ×2 (09:36→20:55)
--- NOTE | 2017-02-09 10:13 | SOAPPROG ---
SOAP Progress Note Assessment/Plan: Assessment/Plan: 72 Y F RLL resection, readmitted with PTX and pleural effusion after returning home to altitude. Increased PTX while on water seal the other day. +Persistent air leak. Pleurovac system previously changed out. Dressing change today. Suction while in room. Ok ot continue to walk off suction. S: No complaints, just frustrated, but smiling. Has lots to keep her occupied. Sat outside on balcony yesterday. No CP or SOB. Eating, having bowel movements. Not in pain. Walking well. O: +air leak min drainage, serous wounds ok no wob, improved BS R, CTAL; CT tube site cdi, no drain holes outside of body, good seal with skin and xeroform rrr abd soft, +BS 02/09/17 10:11 Objective: Vital Signs Temp Pulse Resp BP Pulse Ox 36.6 C 82 14 132/88 H 95 02/09/17 07:45 02/09/17 07:45 02/09/17 07:45 02/09/17 07:45 02/09/17 07:45 02/08/17 02/09/17 02/10/17 05:59 05:59 05:59 Intake Total 1850 400 Output Total 113 Balance 1850 287 ICD10 Worksheet Patient Problems: Problems Problem Status Onset C. difficile colitis Acute 12/30/14
[2017-02-09] MEDS: ATORVASTATIN CALCIUM 10 MG TAB PO SCH (20:54)
[2017-02-09] MEDS: PATCH REMOVAL 1 EA PATCH TD SCH (20:55)
[2017-02-10] MEDS: OXYCODONE/APAP 5/325 TAB PO PRN ×2 (04:05→12:35)
[2017-02-10] MEDS: LIDOCAINE 5% 1 EA PATCH TD SCH (08:31)
[2017-02-10] MEDS: IBUPROFEN 600 MG TAB PO PRN ×3 (08:32→23:11)
[2017-02-10] MEDS: VITAMIN B COMPLEX 1 EA CAP/TAB PO SCH (08:32)
[2017-02-10] MEDS: OMEGA-3 FATTY ACIDS 1,000 MG CAP PO SCH ×2 (08:32→20:43)
[2017-02-10] MEDS: DOCUSATE SODIUM 100 MG CAP PO SCH ×2 (08:32→20:44)
[2017-02-10] MEDS: PANTOPRAZOLE SODIUM 40 MG TAB PO SCH (08:33)
[2017-02-10] MEDS: FAMOTIDINE 20 MG TAB PO SCH ×2 (08:33→20:44)
[2017-02-10] MEDS: CALCIUM CARBONATE 500 MG TAB PO SCH ×2 (08:33→20:43)
[2017-02-10] MEDS: ASCORBIC ACID 500 MG TAB PO SCH ×2 (08:33→20:43)
--- NOTE | 2017-02-10 12:38 | SOAPPROG ---
SOAP Progress Note Assessment/Plan: Assessment/Plan: 72 Y F RLL resection, readmitted with PTX and pleural effusion after returning home to altitude. Back to water seal this morning. Will check CXR later today. S: No complaints, just frustrated, but smiling. O: +air leak min drainage, serous wounds ok no wob, improved BS R, CTAL; CT tube site cdi, no drain holes outside of body, good seal with skin and xeroform rrr abd soft, +BS 02/10/17 12:36 Objective: Vital Signs Temp Pulse Resp BP Pulse Ox 37.0 C 80 14 115/71 96 02/10/17 07:57 02/10/17 07:57 02/10/17 07:57 02/10/17 07:57 02/10/17 07:57 02/09/17 02/10/17 02/11/17 05:59 05:59 05:59 Intake Total 400 200 300 Output Total 113 70 Balance 287 130 300 ICD10 Worksheet Patient Problems: Problems Problem Status Onset C. difficile colitis Acute 12/30/14
[2017-02-10] MEDS: ATORVASTATIN CALCIUM 10 MG TAB PO SCH (20:44)
[2017-02-10] MEDS: PATCH REMOVAL 1 EA PATCH TD SCH (20:47)
[2017-02-11] MEDS: IBUPROFEN 600 MG TAB PO PRN ×4 (04:56→23:59)
[2017-02-11] MEDS: LIDOCAINE 5% 1 EA PATCH TD SCH (08:22)
[2017-02-11] MEDS: CALCIUM CARBONATE 500 MG TAB PO SCH ×2 (08:23→22:52)
[2017-02-11] MEDS: PANTOPRAZOLE SODIUM 40 MG TAB PO SCH (08:23)
[2017-02-11] MEDS: OMEGA-3 FATTY ACIDS 1,000 MG CAP PO SCH ×2 (08:23→22:51)
[2017-02-11] MEDS: FAMOTIDINE 20 MG TAB PO SCH ×2 (08:23→22:51)
[2017-02-11] MEDS: ASCORBIC ACID 500 MG TAB PO SCH ×2 (08:23→22:52)
[2017-02-11] MEDS: VITAMIN B COMPLEX 1 EA CAP/TAB PO SCH (08:23)
[2017-02-11] MEDS: DOCUSATE SODIUM 100 MG CAP PO SCH ×2 (08:34→22:52)
--- NOTE | 2017-02-11 09:05 | SOAPPROG ---
SOAP Progress Note Assessment/Plan: Assessment: COMFORTABLE IN DOING WELL BUT LUNG STILL NOT COMPLETELY EXPANDED/NO AIR LEAK ON CHEST TUBE DRAINAGE/DRAINAGE VOLUME DECREASED MAY NEED ADDITIONAL CHEST TUBE IF NOT IMPROVED Plan: CHEST X-RAY IN THE A.M. 01/29/17 19:01 01/30/17 08:57 COMFORTABLE/ VS STABLE/ NO AIR LEAK BUT STILL NOT FULLY EXPANDED/ WILL PLACE APICAL PNEUMOCATH TODAY 02/06/17 16:05 Breath sounds equal but still small air leak/patient starting to get frustrated/ no obvious leak in the system but will change Pleur-Evac 02/11/17 09:04 COMFORTABLE/ WOUND OK/ STILL WITH TINY AIRLEAK/ CXR STABLE WITH 15% PNEUMO/ ? SLIGHTLY SMALLER Objective: Vital Signs Temp Pulse Resp BP Pulse Ox 37.1 C 80 18 122/74 H 95 02/11/17 04:00 02/11/17 07:03 02/11/17 07:03 02/11/17 07:03 02/11/17 07:03 02/10/17 02/11/17 02/12/17 05:59 05:59 05:59 Intake Total 200 550 Output Total 70 60 Balance 130 490 ICD10 Worksheet Patient Problems: Problems Problem Status Onset C. difficile colitis Acute 12/30/14
--- NOTE | 2017-02-11 09:08 | SOAPPROG ---
SOAP Progress Note Assessment/Plan: Assessment/Plan: 72 Y F RLL resection, readmitted with PTX and pleural effusion after returning home to altitude. Seen with Luis. Wet read of CXR stable, even possibly improved. Will keep off suction and observe. Possible heimlich valve soon. Hesitant to send pt home to 9 ,000ft. Drainage 40cc overnight. S: No complaints, just frustrated, but smiling. O: alert, nad +airleak no wob 02/11/17 09:06 Objective: Vital Signs Temp Pulse Resp BP Pulse Ox 37.1 C 80 18 122/74 H 95 02/11/17 04:00 02/11/17 07:03 02/11/17 07:03 02/11/17 07:03 02/11/17 07:03 02/10/17 02/11/17 02/12/17 05:59 05:59 05:59 Intake Total 200 550 Output Total 70 60 Balance 130 490 ICD10 Worksheet Patient Problems: Problems Problem Status Onset C. difficile colitis Acute 12/30/14
[2017-02-11] MEDS: ATORVASTATIN CALCIUM 10 MG TAB PO SCH (22:51)
[2017-02-11] MEDS: PATCH REMOVAL 1 EA PATCH TD SCH (22:53)
[2017-02-12] MEDS: IBUPROFEN 600 MG TAB PO PRN ×3 (06:32→21:02)
[2017-02-12] MEDS: VITAMIN B COMPLEX 1 EA CAP/TAB PO SCH (08:45)
[2017-02-12] MEDS: CALCIUM CARBONATE 500 MG TAB PO SCH ×2 (08:45→20:59)
[2017-02-12] MEDS: PANTOPRAZOLE SODIUM 40 MG TAB PO SCH (08:46)
[2017-02-12] MEDS: DOCUSATE SODIUM 100 MG CAP PO SCH ×2 (08:47→20:59)
[2017-02-12] MEDS: ASCORBIC ACID 500 MG TAB PO SCH ×2 (08:47→21:00)
[2017-02-12] MEDS: LIDOCAINE 5% 1 EA PATCH TD SCH (08:48)
[2017-02-12] MEDS: FAMOTIDINE 20 MG TAB PO SCH ×2 (08:48→20:59)
[2017-02-12] MEDS: OMEGA-3 FATTY ACIDS 1,000 MG CAP PO SCH ×2 (09:13→20:59)
--- NOTE | 2017-02-12 11:52 | SOAPPROG ---
SOAP Progress Note Assessment/Plan: Assessment: 72-year-old female status post right lower lobe lung resection, readmitted with pneumothorax and pleural effusion Patient reports no change in symptoms, pain is very well controlled, no increased shortness of breath. Trying to remain in good spirits but frustrated with continue his persistent air leak. Physical exam Patient alert, very comfortable sitting up in bed, right chest tube in place, no signs of respiratory distress, no use of accessory muscles Chest right chest tube in place anteriorly, incisions clean dry and intact, no signs of leak around tube or with incisions. Small amount of crackles right lung base compared to left. Evaluation of Pleur-Evac demonstrates persistent air leak. Chest x-ray demonstrates unchanged small right apical pneumothorax, right lower lobe atelectasis Plan: Patient will most likely have a new small chest tube placed, further evaluation for continued leak, home versus staying in [facility] at a lower elevation. Will discuss with Dr. Smith. 02/05/17 12:49 02/12/17 11:51 Objective: Vital Signs Temp Pulse Resp BP Pulse Ox 36.9 C 73 16 130/77 H 98 02/12/17 07:23 02/12/17 07:23 02/12/17 07:23 02/12/17 07:23 02/12/17 07:23 02/11/17 02/12/17 02/13/17 05:59 05:59 05:59 Intake Total 550 1330 Output Total 60 Balance 490 1330 ICD10 Worksheet Patient Problems: Problems Problem Status Onset C. difficile colitis Acute 12/30/14
[2017-02-12] MEDS: ATORVASTATIN CALCIUM 10 MG TAB PO SCH (20:59)
[2017-02-12] MEDS: PATCH REMOVAL 1 EA PATCH TD SCH (21:01)
[2017-02-13] MEDS: IBUPROFEN 600 MG TAB PO PRN ×3 (05:31→18:36)
[2017-02-13] MEDS: DOCUSATE SODIUM 100 MG CAP PO SCH ×2 (09:07→20:45)
[2017-02-13] MEDS: OMEGA-3 FATTY ACIDS 1,000 MG CAP PO SCH ×2 (09:07→20:16)
[2017-02-13] MEDS: PANTOPRAZOLE SODIUM 40 MG TAB PO SCH (09:07)
[2017-02-13] MEDS: VITAMIN B COMPLEX 1 EA CAP/TAB PO SCH (09:07)
[2017-02-13] MEDS: FAMOTIDINE 20 MG TAB PO SCH ×3 (09:07→20:45)
[2017-02-13] MEDS: CALCIUM CARBONATE 500 MG TAB PO SCH ×2 (09:09→20:16)
[2017-02-13] MEDS: ASCORBIC ACID 500 MG TAB PO SCH ×2 (09:09→20:16)
[2017-02-13] MEDS: LIDOCAINE 5% 1 EA PATCH TD SCH (09:18)
--- NOTE | 2017-02-13 15:21 | SOAPPROG ---
SOAP Progress Note Assessment/Plan: Assessment: COMFORTABLE IN DOING WELL BUT LUNG STILL NOT COMPLETELY EXPANDED/NO AIR LEAK ON CHEST TUBE DRAINAGE/DRAINAGE VOLUME DECREASED MAY NEED ADDITIONAL CHEST TUBE IF NOT IMPROVED Plan: CHEST X-RAY IN THE A.M. 01/29/17 19:01 01/30/17 08:57 COMFORTABLE/ VS STABLE/ NO AIR LEAK BUT STILL NOT FULLY EXPANDED/ WILL PLACE APICAL PNEUMOCATH TODAY 02/06/17 16:05 Breath sounds equal but still small air leak/patient starting to get frustrated/ no obvious leak in the system but will change Pleur-Evac 02/11/17 09:04 COMFORTABLE/ WOUND OK/ STILL WITH TINY AIRLEAK/ CXR STABLE WITH 15% PNEUMO/ ? SLIGHTLY SMALLER 02/13/17 15:08 PATIENT COMFORTABLE AND BOARD/WANTS TO GO HOME/NO AIR LEAK TODAY FOR THE 1ST TIME/DRAINAGE MINIMAL/ PLAN CHEST X-RAY IN THE MORNING AND DC CHEST TUBE IF NO AIR LEAK EVEN IF NOT FULLY EXPANDED/MAY NEED HOME OXYGEN TO GO BACK TO [place] AT 9000 FEET Objective: Vital Signs Temp Pulse Resp BP Pulse Ox 36.7 C 77 18 128/82 H 96 02/13/17 08:00 02/13/17 08:00 02/13/17 08:00 02/13/17 08:00 02/13/17 08:00 02/12/17 02/13/17 02/14/17 05:59 05:59 05:59 Intake Total 1330 1200 350 Output Total 10 Balance 1330 1190 350 ICD10 Worksheet Patient Problems: Problems Problem Status Onset C. difficile colitis Acute 12/30/14
[2017-02-13] MEDS: ATORVASTATIN CALCIUM 10 MG TAB PO SCH (20:16)
[2017-02-13] MEDS: PATCH REMOVAL 1 EA PATCH TD SCH (20:21)
[2017-02-14] MEDS: IBUPROFEN 600 MG TAB PO PRN ×4 (00:01→18:21)
[2017-02-14] MEDS: VITAMIN B COMPLEX 1 EA CAP/TAB PO SCH (08:27)
[2017-02-14] MEDS: CALCIUM CARBONATE 500 MG TAB PO SCH ×2 (08:27→22:00)
[2017-02-14] MEDS: OMEGA-3 FATTY ACIDS 1,000 MG CAP PO SCH ×2 (08:27→22:00)
[2017-02-14] MEDS: ASCORBIC ACID 500 MG TAB PO SCH ×2 (08:27→22:00)
[2017-02-14] MEDS: PANTOPRAZOLE SODIUM 40 MG TAB PO SCH (08:27)
[2017-02-14] MEDS: LIDOCAINE 5% 1 EA PATCH TD SCH (08:28)
[2017-02-14] MEDS: DOCUSATE SODIUM 100 MG CAP PO SCH ×2 (08:28→22:01)
[2017-02-14] MEDS: FAMOTIDINE 20 MG TAB PO SCH ×3 (09:46→22:07)
--- NOTE | 2017-02-14 11:24 | SOAPPROG ---
SOAP Progress Note Assessment/Plan: Assessment: 72-year-old female status post repeat chest tube placement for pneumothorax status post lobectomy Yesterday, patient had no air leak and was doing well clinically. Chest x-ray this morning shows that long still remains down but is consistent with previous. On examination, patient has a blowing expiratory air leak with cough which was not present yesterday. Will plan to not discontinue chest tube. Discussed with patient that she may need more aggressive interventions including possible thoracotomy to successfully treat Her air leak. Plan: 02/14/17 11:23 Subjective: Doing well, in good spirits despite extended hospitalization Objective: Vital Signs Temp Pulse Resp BP Pulse Ox 36.9 C 85 18 121/68 H 96 02/14/17 07:19 02/14/17 07:19 02/14/17 07:19 02/14/17 07:19 02/14/17 07:19 02/13/17 02/14/17 02/15/17 05:59 05:59 05:59 Intake Total 1200 1150 Output Total 10 50 Balance 1190 1100 ICD10 Worksheet Patient Problems: Problems Problem Status Onset C. difficile colitis Acute 12/30/14
[2017-02-14] MEDS: ATORVASTATIN CALCIUM 10 MG TAB PO SCH (22:00)
[2017-02-14] MEDS: PATCH REMOVAL 1 EA PATCH TD SCH (22:05)
[2017-02-15] MEDS: IBUPROFEN 600 MG TAB PO PRN ×4 (00:54→21:06)
[2017-02-15] MEDS: LIDOCAINE 5% 1 EA PATCH TD SCH (08:11)
[2017-02-15] MEDS: DOCUSATE SODIUM 100 MG CAP PO SCH (08:11)
[2017-02-15] MEDS: VITAMIN B COMPLEX 1 EA CAP/TAB PO SCH (08:11)
[2017-02-15] MEDS: OMEGA-3 FATTY ACIDS 1,000 MG CAP PO SCH ×2 (08:11→21:05)
[2017-02-15] MEDS: ASCORBIC ACID 500 MG TAB PO SCH ×2 (08:12→21:05)
[2017-02-15] MEDS: PANTOPRAZOLE SODIUM 40 MG TAB PO SCH (08:12)
[2017-02-15] MEDS: CALCIUM CARBONATE 500 MG TAB PO SCH ×2 (08:12→21:05)
[2017-02-15] MEDS: FAMOTIDINE 20 MG TAB PO SCH (08:15)
--- NOTE | 2017-02-15 09:29 | SOAPPROG ---
SOAP Progress Note Assessment/Plan: Assessment: 72-year-old female status post repeat chest tube placement for pneumothorax status post lobectomy Expiratory air leak persists. Chest tube remains to water seal. Will discuss with Dr. Smith more aggressive interventions Plan: 02/14/17 11:23 02/15/17 09:29 Subjective: Frustrated Objective: Vital Signs Temp Pulse Resp BP Pulse Ox 36.6 C 88 16 120/80 94 02/15/17 07:01 02/15/17 07:01 02/15/17 07:01 02/15/17 07:01 02/15/17 07:01 02/14/17 02/15/17 02/16/17 05:59 05:59 05:59 Intake Total 1150 400 Output Total 50 40 Balance 1100 360 ICD10 Worksheet Patient Problems: Problems Problem Status Onset C. difficile colitis Acute 12/30/14
[2017-02-15] MEDS: ATORVASTATIN CALCIUM 10 MG TAB PO SCH (21:05)
[2017-02-16] MEDS: DOCUSATE SODIUM 100 MG CAP PO SCH ×3 (00:45→20:29)
[2017-02-16] MEDS: PATCH REMOVAL 1 EA PATCH TD SCH (00:49)
[2017-02-16] MEDS: FAMOTIDINE 20 MG TAB PO SCH ×3 (00:49→20:30)
--- NOTE | 2017-02-16 10:54 | SOAPPROG ---
SOAP Progress Note Assessment/Plan: Assessment/Plan: 72 Y F RLL resection, readmitted with PTX and pleural effusion after returning home to altitude. Seen with Luis. Chest xray stable on water seal. Will try to get Heimlich valve --call in to purchasing. Could use valve in the pneumothorax kit but would be wasteful if we can get individual piece. If stable on Heimlich, then could d/c to current elevation. S: No complaints, just frustrated, but smiling. O: alert, nad no air leak no wob WOunds cdi. 02/16/17 10:51 Objective: Vital Signs Temp Pulse Resp BP Pulse Ox 36.4 C 90 19 113/78 95 02/16/17 04:40 02/16/17 07:38 02/16/17 07:38 02/16/17 07:38 02/16/17 07:38 02/15/17 02/16/17 02/17/17 05:59 05:59 05:59 Intake Total 400 300 Output Total 40 Balance 360 300 ICD10 Worksheet Patient Problems: Problems Problem Status Onset C. difficile colitis Acute 12/30/14
[2017-02-16] MEDS: LIDOCAINE 5% 1 EA PATCH TD SCH (11:06)
[2017-02-16] MEDS: OMEGA-3 FATTY ACIDS 1,000 MG CAP PO SCH ×2 (11:09→22:06)
[2017-02-16] MEDS: VITAMIN B COMPLEX 1 EA CAP/TAB PO SCH (11:09)
[2017-02-16] MEDS: CALCIUM CARBONATE 500 MG TAB PO SCH ×2 (11:09→22:07)
[2017-02-16] MEDS: ASCORBIC ACID 500 MG TAB PO SCH ×2 (11:09→22:06)
[2017-02-16] MEDS: PANTOPRAZOLE SODIUM 40 MG TAB PO SCH (11:10)
[2017-02-16] MEDS: IBUPROFEN 600 MG TAB PO PRN ×2 (11:13→22:07)
[2017-02-16] MEDS: ATORVASTATIN CALCIUM 10 MG TAB PO SCH (22:06)
[2017-02-17] MEDS: PATCH REMOVAL 1 EA PATCH TD SCH ×2 (00:55→21:07)
[2017-02-17] MEDS: IBUPROFEN 600 MG TAB PO PRN ×3 (06:00→21:05)
[2017-02-17] MEDS: LIDOCAINE 5% 1 EA PATCH TD SCH (08:32)
[2017-02-17] MEDS: ASCORBIC ACID 500 MG TAB PO SCH ×2 (08:33→21:06)
[2017-02-17] MEDS: PANTOPRAZOLE SODIUM 40 MG TAB PO SCH (08:33)
[2017-02-17] MEDS: OMEGA-3 FATTY ACIDS 1,000 MG CAP PO SCH ×2 (08:33→21:07)
[2017-02-17] MEDS: DOCUSATE SODIUM 100 MG CAP PO SCH ×2 (08:33→21:05)
[2017-02-17] MEDS: VITAMIN B COMPLEX 1 EA CAP/TAB PO SCH (08:33)
[2017-02-17] MEDS: CALCIUM CARBONATE 500 MG TAB PO SCH ×2 (08:33→21:05)
[2017-02-17] MEDS: FAMOTIDINE 20 MG TAB PO SCH ×2 (08:34→21:06)
--- NOTE | 2017-02-17 15:18 | SOAPPROG ---
SOAP Progress Note Assessment/Plan: Assessment/Plan: 72 Y F RLL resection, readmitted with PTX and pleural effusion after returning home to altitude. Minimal increase in PTX on Heimlich valve. No air leak on valve. Seen and discussed with Dr. Smith. Will remove chest tube and get serial xrays. If fails , then may need new chest tube or possibly surgery. If successful, could go home soon with very close outpatient f/u. S: No complaints. No sob. O: alert, nad no air leak no wob Wounds cdi. 02/17/17 15:16 Objective: Vital Signs Temp Pulse Resp BP Pulse Ox 36.8 C 83 18 133/73 H 98 02/17/17 08:00 02/17/17 08:00 02/17/17 08:00 02/17/17 08:00 02/17/17 08:00 02/16/17 02/17/17 02/18/17 05:59 05:59 05:59 Intake Total 300 700 Balance 300 700 ICD10 Worksheet Patient Problems: Problems Problem Status Onset C. difficile colitis Acute 12/30/14
[2017-02-17] MEDS ORDERED: fentaNYL 100 MCG/2 ML INJ ONE (19:43)
[2017-02-17] MEDS ORDERED: fentaNYL 100 MCG/2 ML INJ IVP ONE (19:45)
[2017-02-17] MEDS ORDERED: LIDOCAINE 2% 5 ML SDV IF ONE (19:45)
[2017-02-17] MEDS ORDERED: MIDAZOLAM 2 MG/2 ML VIAL IVP ONE (20:00)
--- NOTE | 2017-02-17 21:00 | SOAPPROG ---
SOAP Progress Note Assessment/Plan: Assessment: COMFORTABLE IN DOING WELL BUT LUNG STILL NOT COMPLETELY EXPANDED/NO AIR LEAK ON CHEST TUBE DRAINAGE/DRAINAGE VOLUME DECREASED MAY NEED ADDITIONAL CHEST TUBE IF NOT IMPROVED Plan: CHEST X-RAY IN THE A.M. 01/29/17 19:01 01/30/17 08:57 COMFORTABLE/ VS STABLE/ NO AIR LEAK BUT STILL NOT FULLY EXPANDED/ WILL PLACE APICAL PNEUMOCATH TODAY 02/06/17 16:05 Breath sounds equal but still small air leak/patient starting to get frustrated/ no obvious leak in the system but will change Pleur-Evac 02/11/17 09:04 COMFORTABLE/ WOUND OK/ STILL WITH TINY AIRLEAK/ CXR STABLE WITH 15% PNEUMO/ ? SLIGHTLY SMALLER 02/13/17 15:08 PATIENT COMFORTABLE AND BOARD/WANTS TO GO HOME/NO AIR LEAK TODAY FOR THE 1ST TIME/DRAINAGE MINIMAL/ PLAN CHEST X-RAY IN THE MORNING AND DC CHEST TUBE IF NO AIR LEAK EVEN IF NOT FULLY EXPANDED/MAY NEED HOME OXYGEN TO GO BACK TO [place] AT 9000 FEET 02/17/17 20:59 FOLLOW-UP CHEST X-RAYS AFTER REMOVAL OF CHEST TUBE SHOWED ENLARGING PNEUMOTHORAX /RISKS AND OPTIONS FULLY DISCUSSED/WILL PROCEED WITH PLACING NEW APICAL CHEST TUBE Objective: Vital Signs Temp Pulse Resp BP Pulse Ox 37.2 C 85 16 108/81 H 96 02/17/17 20:06 02/17/17 20:06 02/17/17 20:06 02/17/17 20:06 02/17/17 20:06 02/16/17 02/17/17 02/18/17 05:59 05:59 05:59 Intake Total 300 700 500 Balance 300 700 500 ICD10 Worksheet Patient Problems: Problems Problem Status Onset C. difficile colitis Acute 12/30/14
--- NOTE | 2017-02-17 21:01 | POSTOPPROG ---
Post Op Note Date of Operation: 02/17/17 Surgeon: Juanjose Smith Anesthesia: IV Sedation Pre-op Diagnosis: RECURRENT RIGHT PNEUMOTHORAX Post-op Diagnosis: SAME Indication: ENLARGING PNEUMOTHORAX Procedure: RIGHT TUBE THORACOSTOMY WITH IV SEDATION Findings: RESOLUTION OF THE PNEUMOTHORAX Inf/Abcess present in the surg proc area at time of surgery?: No Depth: Organ Space EBL: Minimal Complications: NONE
[2017-02-17] MEDS: ATORVASTATIN CALCIUM 10 MG TAB PO SCH (21:05)
[2017-02-17] MEDS ORDERED: MIDAZOLAM 2 MG/2 ML VIAL ONE (21:23)
[2017-02-18] MEDS: OXYCODONE/APAP 5/325 TAB PO PRN ×2 (00:11→05:55)
[2017-02-18] MEDS: OMEGA-3 FATTY ACIDS 1,000 MG CAP PO SCH ×2 (09:34→20:55)
[2017-02-18] MEDS: ASCORBIC ACID 500 MG TAB PO SCH ×2 (09:34→20:54)
[2017-02-18] MEDS: CALCIUM CARBONATE 500 MG TAB PO SCH ×2 (09:34→20:55)
[2017-02-18] MEDS: DOCUSATE SODIUM 100 MG CAP PO SCH ×2 (09:34→20:55)
[2017-02-18] MEDS: LIDOCAINE 5% 1 EA PATCH TD SCH (09:34)
[2017-02-18] MEDS: PANTOPRAZOLE SODIUM 40 MG TAB PO SCH (09:34)
[2017-02-18] MEDS: FAMOTIDINE 20 MG TAB PO SCH ×3 (09:34→20:19)
[2017-02-18] MEDS: VITAMIN B COMPLEX 1 EA CAP/TAB PO SCH (09:34)
[2017-02-18] MEDS: IBUPROFEN 600 MG TAB PO PRN ×2 (09:53→17:43)
--- NOTE | 2017-02-18 15:17 | SOAPPROG ---
MARY [facility]NE Progress Note Assessment/Plan: Assessment: COMFORTABLE IN DOING WELL BUT LUNG STILL NOT COMPLETELY EXPANDED/NO AIR LEAK ON CHEST TUBE DRAINAGE/DRAINAGE VOLUME DECREASED MAY NEED ADDITIONAL CHEST TUBE IF NOT IMPROVED Plan: CHEST X-RAY IN THE A.M. 01/29/17 19:01 01/30/17 08:57 COMFORTABLE/ VS STABLE/ NO AIR LEAK BUT STILL NOT FULLY EXPANDED/ WILL PLACE APICAL PNEUMOCATH TODAY 02/06/17 16:05 Breath sounds equal but still small air leak/patient starting to get frustrated/ no obvious leak in the system but will change Pleur-Evac 02/11/17 09:04 COMFORTABLE/ WOUND OK/ STILL WITH TINY AIRLEAK/ CXR STABLE WITH 15% PNEUMO/ ? SLIGHTLY SMALLER 02/13/17 15:08 PATIENT COMFORTABLE AND BOARD/WANTS TO GO HOME/NO AIR LEAK TODAY FOR THE 1ST TIME/DRAINAGE MINIMAL/ PLAN CHEST X-RAY IN THE MORNING AND DC CHEST TUBE IF NO AIR LEAK EVEN IF NOT FULLY EXPANDED/MAY NEED HOME OXYGEN TO GO BACK TO [place] AT [address] FEET 02/17/17 20:59 FOLLOW-UP CHEST X-RAYS AFTER REMOVAL OF CHEST TUBE SHOWED ENLARGING PNEUMOTHORAX /RISKS AND OPTIONS FULLY DISCUSSED/WILL PROCEED WITH PLACING NEW APICAL CHEST TUBE 02/18/17 15:16 LUNG REASONABLY WELL EXPANDED ON CHEST X-RAY BUT STILL WITH A SMALL AIR LEAK/ RISKS AND OPTIONS FULLY DISCUSSED INCLUDING POSSIBILITY OF SURGERY TO CORRECT THE AIR LEAK/ WE WILL CONTINUE TO WORK ON PLEUR-EVAC SUCTION DRAINAGE Objective: Vital Signs Temp Pulse Resp BP Pulse Ox 36.7 C 79 18 133/75 H 95 02/18/17 08:00 02/18/17 08:00 02/18/17 05:59 02/18/17 08:00 02/18/17 08:00 02/17/17 02/18/17 02/19/17 05:59 05:59 05:59 Intake Total 700 900 Balance 700 900 ICD10 Worksheet Patient Problems: Problems Problem Status Onset C. difficile colitis Acute 12/30/14
[2017-02-18] MEDS: ATORVASTATIN CALCIUM 10 MG TAB PO SCH (20:54)
[2017-02-18] MEDS: PATCH REMOVAL 1 EA PATCH TD SCH (20:55)
[2017-02-19] MEDS: IBUPROFEN 600 MG TAB PO PRN ×4 (01:30→22:08)
[2017-02-19] MEDS: OXYCODONE/APAP 5/325 TAB PO PRN ×2 (06:42→13:12)
[2017-02-19] MEDS: ASCORBIC ACID 500 MG TAB PO SCH ×2 (08:06→20:32)
[2017-02-19] MEDS: VITAMIN B COMPLEX 1 EA CAP/TAB PO SCH (08:07)
[2017-02-19] MEDS: OMEGA-3 FATTY ACIDS 1,000 MG CAP PO SCH ×2 (08:07→20:32)
[2017-02-19] MEDS: CALCIUM CARBONATE 500 MG TAB PO SCH ×2 (08:07→20:32)
[2017-02-19] MEDS: PANTOPRAZOLE SODIUM 40 MG TAB PO SCH (08:08)
[2017-02-19] MEDS: DOCUSATE SODIUM 100 MG CAP PO SCH ×2 (08:08→20:32)
[2017-02-19] MEDS: FAMOTIDINE 20 MG TAB PO SCH ×2 (08:08→20:55)
[2017-02-19] MEDS: LIDOCAINE 5% 1 EA PATCH TD SCH (11:33)
--- NOTE | 2017-02-19 14:28 | SOAPPROG ---
SOAP Progress Note Assessment/Plan: Assessment: COMFORTABLE IN DOING WELL BUT LUNG STILL NOT COMPLETELY EXPANDED/NO AIR LEAK ON CHEST TUBE DRAINAGE/DRAINAGE VOLUME DECREASED MAY NEED ADDITIONAL CHEST TUBE IF NOT IMPROVED Plan: CHEST X-RAY IN THE A.M. 01/29/17 19:01 01/30/17 08:57 COMFORTABLE/ VS STABLE/ NO AIR LEAK BUT STILL NOT FULLY EXPANDED/ WILL PLACE APICAL PNEUMOCATH TODAY 02/06/17 16:05 Breath sounds equal but still small air leak/patient starting to get frustrated/ no obvious leak in the system but will change Pleur-Evac 02/11/17 09:04 COMFORTABLE/ WOUND OK/ STILL WITH TINY AIRLEAK/ CXR STABLE WITH 15% PNEUMO/ ? SLIGHTLY SMALLER 02/13/17 15:08 PATIENT COMFORTABLE AND BOARD/WANTS TO GO HOME/NO AIR LEAK TODAY FOR THE 1ST TIME/DRAINAGE MINIMAL/ PLAN CHEST X-RAY IN THE MORNING AND DC CHEST TUBE IF NO AIR LEAK EVEN IF NOT FULLY EXPANDED/MAY NEED HOME OXYGEN TO GO BACK TO [place] AT 9000 FEET 02/17/17 20:59 FOLLOW-UP CHEST X-RAYS AFTER REMOVAL OF CHEST TUBE SHOWED ENLARGING PNEUMOTHORAX /RISKS AND OPTIONS FULLY DISCUSSED/WILL PROCEED WITH PLACING NEW APICAL CHEST TUBE 02/18/17 15:16 LUNG REASONABLY WELL EXPANDED ON CHEST X-RAY BUT STILL WITH A SMALL AIR LEAK/ RISKS AND OPTIONS FULLY DISCUSSED INCLUDING POSSIBILITY OF SURGERY TO CORRECT THE AIR LEAK/ WE WILL CONTINUE TO WORK ON PLEUR-EVAC SUCTION DRAINAGE 02/19/17 14:27 CXR IMPROVING/ MINIMAL AIR LEAK/ WILL WATCH OVER WEEKEND/ IF LEAK FAILS TO RESOLVE WILL PROCEED WITH VATS PLEURODESIS Objective: Vital Signs Temp Pulse Resp BP Pulse Ox 36.8 C 78 16 131/80 H 97 02/19/17 07:17 02/19/17 07:17 02/19/17 07:17 02/19/17 07:17 02/19/17 07:17 02/18/17 02/19/17 02/20/17 05:59 05:59 05:59 Intake Total 900 1500 240 Output Total 95 Balance 900 1405 240 ICD10 Worksheet Patient Problems: Problems Problem Status Onset C. difficile colitis Acute 12/30/14
[2017-02-19] MEDS: ATORVASTATIN CALCIUM 10 MG TAB PO SCH (20:32)
[2017-02-19] MEDS: PATCH REMOVAL 1 EA PATCH TD SCH (20:55)
[2017-02-20] MEDS: IBUPROFEN 600 MG TAB PO PRN ×3 (04:11→17:54)
[2017-02-20] MEDS: OXYCODONE/APAP 5/325 TAB PO PRN (05:54)
[2017-02-20] MEDS: LIDOCAINE 5% 1 EA PATCH TD SCH (08:50)
[2017-02-20] MEDS: PANTOPRAZOLE SODIUM 40 MG TAB PO SCH (08:54)
[2017-02-20] MEDS: DOCUSATE SODIUM 100 MG CAP PO SCH ×2 (08:54→20:53)
[2017-02-20] MEDS: VITAMIN B COMPLEX 1 EA CAP/TAB PO SCH (08:54)
[2017-02-20] MEDS: OMEGA-3 FATTY ACIDS 1,000 MG CAP PO SCH ×2 (08:54→20:53)
[2017-02-20] MEDS: ASCORBIC ACID 500 MG TAB PO SCH ×2 (08:54→20:53)
[2017-02-20] MEDS: CALCIUM CARBONATE 500 MG TAB PO SCH ×2 (08:55→20:53)
[2017-02-20] MEDS: FAMOTIDINE 20 MG TAB PO SCH ×2 (08:55→20:53)
--- NOTE | 2017-02-20 09:19 | SOAPPROG ---
SOAP Progress Note Assessment/Plan: Assessment: 72 yo female s/p RLL resection, readmitted with right PTX and pleural effusion after returning home to altitude. CXR performed this morning demonstrates persistent right PTX. S: Patient feeling well this morning. Denies SOB. Complaining of some discomfort from the chest tube site. Pain is well controlled. O: A&O, NAD Air leak present No increased WOB. Decreased breath sounds on right. RRR Chest tube site recently redressed-Dressing clean and dry Skin irritation from tape dressing on right. Plan: Patient seen by and discussed with Dr. Smith. OR Thursday, 02/23, for VATS with possible thoracotomy and pleurodesis. 02/20/17 10:16 Objective: Vital Signs Temp Pulse Resp BP Pulse Ox 36.8 C 87 18 146/69 H 98 02/20/17 08:00 02/20/17 08:00 02/20/17 08:00 02/20/17 08:00 02/20/17 08:00 02/19/17 02/20/17 02/21/17 05:59 05:59 05:59 Intake Total 1500 1140 Output Total 95 15 Balance 1405 1125 ICD10 Worksheet Patient Problems: Problems Problem Status Onset C. difficile colitis Acute 12/30/14
[2017-02-20] MEDS: PATCH REMOVAL 1 EA PATCH TD SCH (20:20)
[2017-02-20] MEDS: ATORVASTATIN CALCIUM 10 MG TAB PO SCH (20:53)
[2017-02-21] MEDS: IBUPROFEN 600 MG TAB PO PRN ×4 (02:12→21:02)
[2017-02-21] MEDS: OXYCODONE/APAP 5/325 TAB PO PRN ×3 (03:40→23:10)
[2017-02-21] MEDS: OMEGA-3 FATTY ACIDS 1,000 MG CAP PO SCH ×2 (08:13→20:46)
[2017-02-21] MEDS: DOCUSATE SODIUM 100 MG CAP PO SCH ×2 (08:13→20:46)
[2017-02-21] MEDS: VITAMIN B COMPLEX 1 EA CAP/TAB PO SCH (08:13)
[2017-02-21] MEDS: FAMOTIDINE 20 MG TAB PO SCH ×2 (08:13→20:46)
[2017-02-21] MEDS: ASCORBIC ACID 500 MG TAB PO SCH ×2 (08:14→20:46)
[2017-02-21] MEDS: PANTOPRAZOLE SODIUM 40 MG TAB PO SCH (08:14)
[2017-02-21] MEDS: CALCIUM CARBONATE 500 MG TAB PO SCH ×2 (08:14→20:46)
[2017-02-21] MEDS: LIDOCAINE 5% 1 EA PATCH TD SCH (10:25)
--- NOTE | 2017-02-21 10:56 | SOAPPROG ---
SOAP Progress Note Assessment/Plan: Assessment: s/p wedge resection who returned with pneumo/effusion Persistent air leak VATS and pleurodesis on Thursday with Dr. Smith Answered surgical questions Continue to suction due to air leak Lost IV access. May ambulate off suction S: Feeling well Lungs with breath sounds bilaterally. Some popping and clicking on right Regular rate 1 chamber air leak. Plan: 01/31/17 11:40 02/01/17 08:37 02/21/17 10:56 Objective: Vital Signs Temp Pulse Resp BP Pulse Ox 37.6 C 84 18 128/84 H 94 02/21/17 08:35 02/21/17 08:35 02/21/17 08:35 02/21/17 08:35 02/21/17 08:35 02/20/17 02/21/17 02/22/17 05:59 05:59 05:59 Intake Total 1140 1250 Output Total 15 15 Balance 1125 1235 ICD10 Worksheet Patient Problems: Problems Problem Status Onset C. difficile colitis Acute 12/30/14
[2017-02-21] MEDS ORDERED: BACITRACIN OINTMENT 1 PACKET TP ONE (17:29)
[2017-02-21] MEDS: ATORVASTATIN CALCIUM 10 MG TAB PO SCH (20:46)
[2017-02-21] MEDS: PATCH REMOVAL 1 EA PATCH TD SCH (21:22)
[2017-02-22] MEDS: IBUPROFEN 600 MG TAB PO PRN ×4 (03:09→20:14)
[2017-02-22] MEDS: PANTOPRAZOLE SODIUM 40 MG TAB PO SCH (09:22)
[2017-02-22] MEDS: VITAMIN B COMPLEX 1 EA CAP/TAB PO SCH (09:22)
[2017-02-22] MEDS: CALCIUM CARBONATE 500 MG TAB PO SCH ×2 (09:22→20:14)
[2017-02-22] MEDS: DOCUSATE SODIUM 100 MG CAP PO SCH ×2 (09:22→20:14)
[2017-02-22] MEDS: ASCORBIC ACID 500 MG TAB PO SCH ×2 (09:22→20:14)
[2017-02-22] MEDS: OMEGA-3 FATTY ACIDS 1,000 MG CAP PO SCH ×2 (09:22→20:14)
[2017-02-22] MEDS: LIDOCAINE 5% 1 EA PATCH TD SCH (09:22)
[2017-02-22] MEDS: FAMOTIDINE 20 MG TAB PO SCH (09:22)
--- NOTE | 2017-02-22 11:44 | SOAPPROG ---
SOAP Progress Note Assessment/Plan: Assessment: s/p wedge resection who returned with pneumo/effusion Persistent air leak VATS and pleurodesis on Thursday with Dr. Smith Answered surgical questions Continue to suction due to air leak May ambulate off suction S: Feeling well. had treatment for PTSD yesterday Lungs with breath sounds bilaterally. Some popping and clicking on right Regular rate 1 chamber air leak. Plan: 01/31/17 11:40 02/01/17 08:37 02/21/17 10:56 02/22/17 11:44 Objective: Vital Signs Temp Pulse Resp BP Pulse Ox 37.1 C 85 18 134/90 H 95 02/22/17 07:59 02/22/17 07:59 02/22/17 07:59 02/22/17 07:59 02/22/17 07:59 02/21/17 02/22/17 02/23/17 05:59 05:59 05:59 Intake Total 1250 1220 Output Total 15 10 Balance 1235 1210 ICD10 Worksheet Patient Problems: Problems Problem Status Onset C. difficile colitis Acute 12/30/14
[2017-02-22] MEDS: ATORVASTATIN CALCIUM 10 MG TAB PO SCH (20:14)
[2017-02-22] MEDS: PATCH REMOVAL 1 EA PATCH TD SCH (22:06)
[2017-02-23] MEDS: OXYCODONE/APAP 5/325 TAB PO PRN ×4 (00:49→23:35)
[2017-02-23] MEDS ORDERED: VANCOMYCIN HCL/NORMAL SALINE 250 ML IV ONE (06:00)
[2017-02-23] MEDS ORDERED: BUPIVACAINE 0.5% 30 ML SDV ONE (07:26)
[2017-02-23] MEDS ORDERED: BUPIVACAINE/EPI 0.25% 30 ML SDV ONE (07:27)
[2017-02-23] MEDS ORDERED: LR 1,000 ML IV ONE (08:06)
[2017-02-23] MEDS ORDERED: MIDAZOLAM 2 MG/2 ML VIAL IVP ONE (08:38)
--- NOTE | 2017-02-23 08:42 | PDANEPAE ---
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- no symptoms - Pulmonary History Hx COPD: No Hx Asthma/Reactive Airway Disease: No Hx Recent Upper Respiratory Infection: No Hx Oxygen in Use at Home: No Hx Sleep Apnea: No Sleep Apnea Screening Result - Last Documented: Negative Pulmonary History Comment: NODULE R LOWER LOBE - Neurologic History Hx Cerebrovascular Accident: No Hx Seizures: No Hx Dementia: No - Endocrine History Hx Diabetes: No - Renal History Hx Renal Disorders: No - Liver History Hx Hepatic Disorders: No - Neurological & Psychiatric Hx Hx Neurological and Psychiatric Disorders: No - Cancer History Hx Cancer: No - Congenital Disorder History Hx Congenital Disorders: No - GI History Hx Gastrointestinal Disorders: No Gastrointestinal History Comment: hx of cdiff 12/2014. reflux - Other Health History Other Health History: none - Chronic Pain History Chronic Pain: No - Surgical History Prior Surgeries: LUMBAR FUSION. HYSTERECTOMY. HEMMORIODECTOMY. bilateral foot surgeries ANE Review of Systems - Exercise capacity METS (RN): 3 METS ANE Patient History - Allergies Allergies/Adverse Reactions: amoxicillin Allergy (Severe, Verified 03/03/16 15:34) ciprofloxacin Allergy (Severe, Verified 03/03/16 15:35) clindamycin Allergy (Severe, Verified 03/03/16 15:35) Penicillins Allergy (Severe, Verified 03/03/16 15:34) adhesive tape Allergy (Verified 02/02/17 10:16) Iodine and Iodide Containing Produc Allergy (Verified 01/28/17 11:31) latex Allergy (Verified 01/28/17 11:23) calamari Allergy (Severe, Uncoded 03/03/16 15:34) - Home Medications Home Medications: Ascorbic Acid [Vitamin C 500 mg (*)] 1,000 mg PO BID 01/09/17 [Last Taken ] Calcium [HI-JUAN MANUEL] 500 mg PO BID 01/09/17 [Last Taken 01/27/17] Esomeprazole Mag Trihydrate [Nexium] 40 mg PO DAILY 01/09/17 [Last Taken ] Fish Oil/Dha/Epa [Fish Oil 1,200 mg Fish Oil] 1 each PO BID 01/09/17 [Last Taken 01/27/17] Herbals/Supplements -Info Only 1 ea PO DAILY 01/09/17 [Last Taken 01/27/17] Simvastatin [Zocor] 20 mg PO HS 01/09/17 [Last Taken 01/27/17] Vitamin B Complex [B Complex] 1 each PO DAILY 01/09/17 [Last Taken 01/27/17] Estrogens,Conjugated [Premarin Vaginal (*)] 1 jose VG [id number] 01/28/17 [Last Taken Unknown] - NPO status NPO Since - Liquids (Date): 02/23/17 NPO Since - Liquids (Time): 00:00 NPO Since - Solids (Date): 02/23/17 NPO Since - Solids (Time): 00:00 - Smoking Hx Smoking Status: Former smoker - Family Anes Hx Family Hx Anesthesia Complications: NONE ANE Labs/Vital Signs - Vital Signs Blood Pressure: 138/91 Heart Rate: 71 Respiratory Rate: 16 O2 Sat (%): 99 Height: 167.64 cm Weight: 61.235 kg ANE Physical Exam - Airway Neck exam: FROM Mallampati Score: Class 3 Mouth exam: normal dental/mouth exam, dentures - Pulmonary Pulmonary: no respiratory distress, no rales or rhonchi - Cardiovascular Cardiovascular: regular rate and rhythym, no murmur, rub, or gallop - ASA Status ASA Status: III ANE Anesthesia Plan Anesthesia Plan: general endotracheal anesthesia Specialized Airway: double lumen tube
[2017-02-23] MEDS ORDERED: BUPIVACAINE/EPI 0.5% 30 ML SDV ONE (08:50)
[2017-02-23] MEDS ORDERED: ROCURONIUM 50 MG/5 ML VIAL ONE (08:51)
[2017-02-23] MEDS ORDERED: fentaNYL 100 MCG/2 ML INJ ONE ×3 (08:51→12:49)
[2017-02-23] MEDS ORDERED: PROPOFOL 200 MG/20 ML VIAL ONE (08:51)
[2017-02-23] MEDS ORDERED: ONDANSETRON 4 MG/2 ML VIAL ONE (08:52)
[2017-02-23] MEDS ORDERED: DEXAMETHASONE 4 MG/ML VIAL ONE ×2 (08:52→10:17)
[2017-02-23] MEDS ORDERED: SUGAMMADEX SODIUM 200 MG/2 ML VIAL IVP ONE (08:52)
[2017-02-23] MEDS ORDERED: LIDOCAINE 2% 100 MG/5 ML SYR ONE (08:52)
[2017-02-23] MEDS ORDERED: KETAMINE 100 MG/10 ML SYR ONE (10:18)
[2017-02-23] MEDS ORDERED: DEXMEDETOMIDINE HCL 200 MCG/2 ML VIAL IV ONE (10:25)
[2017-02-23] MEDS ORDERED: THROMBIN(HUM PLAS)/FIBRINOG/CA 5 ML VIAL TP ONE (10:55)
[2017-02-23] MEDS ORDERED: PHENYLEPHRINE HCL 100 MCG/ML SYR ONE (11:00)
[2017-02-23] MEDS ORDERED: PROMETHAZINE HCL 25 MG/ML INJ IVP PRN (11:40)
[2017-02-23] MEDS ORDERED: MEPERIDINE 25 MG/ML SYR IVP PRN (11:40)
[2017-02-23] MEDS ORDERED: ONDANSETRON 4 MG/2 ML VIAL IVP PRN (11:40)
[2017-02-23] MEDS ORDERED: HYDROmorphONE/DILAUDID 1 MG/ML SYR IVP PRN (11:40)
[2017-02-23] MEDS ORDERED: NALOXONE HCL 0.4 MG/ML INJ IVP PRN ×2 (11:40→12:44)
[2017-02-23] MEDS ORDERED: DEXMEDETOMIDINE HCL 400 MCG in NS 100 ML IV SCH (12:00)
--- NOTE | 2017-02-23 12:48 | POSTANESTH ---
Post Anesthetic Evaluation Cardiovascular Status: Normal, Stable, Similar to Pre-Op Cond Respiratory Status: Normal, Stable, Similar to Pre-op Cond. Level of Consciousness/Mental Status: Moderately Sleepy Pain Control: Adequate, Prn Tx Ordered Nausea/Vomiting Control: Adequate, Prn Tx Ordered Complications Possibly Related to Anesthesia: None Noted
[2017-02-23] MEDS ORDERED: HYDROmorphONE/DILAUDID 1 MG/ML SYR ONE (12:49)
[2017-02-23] MEDS: fentaNYL 100 MCG/2 ML INJ IVP PRN ×2 (12:51→13:07)
[2017-02-23] MEDS: HYDROmorphONE/DILAUDID 1 MG/ML SYR IVP PRN ×3 (12:53→14:30)
--- NOTE | 2017-02-23 13:55 | POSTOPPROG ---
Post Op Note Date of Operation: 02/23/17 Surgeon: Juanjose Smith [employer] Production Worker: Radha Ruiz Anesthesiologist: Marko Montoya Anesthesia: GET(General Endotracheal) Pre-op Diagnosis: persistent PTX, air leak Post-op Diagnosis: same Procedure: R VATS, thoracotomy, decortication, partial lobectomy, pleurodesis Findings: Adhesed lung, multiple sites of possible leak, nodule suspicious for CA Inf/Abcess present in the surg proc area at time of surgery?: No EBL: 50-100 Complications: none Drains: Other (2 28 Fr chest tubes) Specimen(s): nodule and partial lobectomy to pathology, frozen sections suspicious for malignancy
--- NOTE | 2017-02-23 14:28 | PDINTPN ---
Behavioral Analyst Progress Note Assessment/Plan: Assessment/plan: * Persistent pneumothorax after lobectomy * Status post VATS pleurodesis, partial lobectomy. Recent chest x-ray shows 40 % pneumothorax. -will recheck chest x-ray * Lung nodule-path pending, but suspicious for cancer * Respiratory-stable on minimal oxygen * Pain-controlled * Depression * Aortic aneurysm * GERD Subjective: Resting comfortably. Pain well tolerated. Not currently breathless. Objective: Vital Signs Temp Pulse Resp BP Pulse Ox 36.1 C 66 15 91/52 L 98 02/23/17 13:12 02/23/17 13:12 02/23/17 13:30 02/23/17 13:30 02/23/17 13:30 02/22/17 02/23/17 02/24/17 05:59 05:59 05:59 Intake Total 1220 400 Output Total 10 40 Balance 1210 360 Physical Exam - Physical Exam General Appearance: alert, no apparent distress EENT: PERRL/EOMI, normal ENT inspection, pharynx normal, TMs normal Neck: non-tender, full range of motion, supple, normal inspection Respiratory: crackles (Right), prolonged expiration, No respiratory distress, No wheezing Cardiac/Chest: normal peripheral pulses, regular rate, rhythm Peripheral Pulses: 2+: carotid (R), carotid (L), femoral (R), femoral (L), dorsalis-pedis (R), dorsalis-pedis (L) Abdomen: normal bowel sounds, non-tender, soft Pelvic Exam: deferred Rectal: deferred Skin: normal color, warm/dry Extremities: normal range of motion, non-tender, normal inspection, normal capillary refill Neuro/Psych: alert ICD10 Worksheet Patient Problems: Problems Problem Status Onset C. difficile colitis Acute 12/30/14
[2017-02-23] MEDS: ASCORBIC ACID 500 MG TAB PO SCH ×2 (14:31→20:21)
[2017-02-23] MEDS: CALCIUM CARBONATE 500 MG TAB PO SCH ×2 (14:31→20:22)
[2017-02-23] MEDS: PANTOPRAZOLE SODIUM 40 MG TAB PO SCH (14:32)
[2017-02-23] MEDS: DOCUSATE SODIUM 100 MG CAP PO SCH ×2 (14:32→20:21)
[2017-02-23] MEDS: VITAMIN B COMPLEX 1 EA CAP/TAB PO SCH (14:32)
[2017-02-23] MEDS: OMEGA-3 FATTY ACIDS 1,000 MG CAP PO SCH ×2 (14:32→20:21)
[2017-02-23] MEDS: HYDROmorphONE/DILAUDID 6 MG/30 ML PCA IV PRN (14:45)
--- NOTE | 2017-02-23 14:45 | POSTOPPROG ---
Post Op Note Date of Operation: 02/23/17 Surgeon: Juanjose Smith [employer] Crm Developer: Alfredo uriarte
[2017-02-23] MEDS: NS W/ 20 KCl/L 1,000 ML IV SCH ×2 (14:46→20:22)
--- NOTE | 2017-02-23 17:40 | SOAPPROG ---
SOAP Progress Note Assessment/Plan: Assessment: COMFORTABLE IN DOING WELL BUT LUNG STILL NOT COMPLETELY EXPANDED/NO AIR LEAK ON CHEST TUBE DRAINAGE/DRAINAGE VOLUME DECREASED MAY NEED ADDITIONAL CHEST TUBE IF NOT IMPROVED Plan: CHEST X-RAY IN THE A.M. 01/29/17 19:01 01/30/17 08:57 COMFORTABLE/ VS STABLE/ NO AIR LEAK BUT STILL NOT FULLY EXPANDED/ WILL PLACE APICAL PNEUMOCATH TODAY 02/06/17 16:05 Breath sounds equal but still small air leak/patient starting to get frustrated/ no obvious leak in the system but will change Pleur-Evac 02/11/17 09:04 COMFORTABLE/ WOUND OK/ STILL WITH TINY AIRLEAK/ CXR STABLE WITH 15% PNEUMO/ ? SLIGHTLY SMALLER 02/13/17 15:08 PATIENT COMFORTABLE AND BOARD/WANTS TO GO HOME/NO AIR LEAK TODAY FOR THE 1ST TIME/DRAINAGE MINIMAL/ PLAN CHEST X-RAY IN THE MORNING AND DC CHEST TUBE IF NO AIR LEAK EVEN IF NOT FULLY EXPANDED/MAY NEED HOME OXYGEN TO GO BACK TO [place] AT 9000 FEET 02/17/17 20:59 FOLLOW-UP CHEST X-RAYS AFTER REMOVAL OF CHEST TUBE SHOWED ENLARGING PNEUMOTHORAX /RISKS AND OPTIONS FULLY DISCUSSED/WILL PROCEED WITH PLACING NEW APICAL CHEST TUBE 02/18/17 15:16 LUNG REASONABLY WELL EXPANDED ON CHEST X-RAY BUT STILL WITH A SMALL AIR LEAK/ RISKS AND OPTIONS FULLY DISCUSSED INCLUDING POSSIBILITY OF SURGERY TO CORRECT THE AIR LEAK/ WE WILL CONTINUE TO WORK ON PLEUR-EVAC SUCTION DRAINAGE 02/19/17 14:27 CXR IMPROVING/ MINIMAL AIR LEAK/ WILL WATCH OVER WEEKEND/ IF LEAK FAILS TO RESOLVE WILL PROCEED WITH VATS PLEURODESIS 02/23/17 17:39 COMFORTABLE/VITAL SIGNS STABLE/AFEBRILE/POSITIVE AIR LEAK/CHEST X-RAY SHOWS FAILED RE-EXPANSION OF THE LUNG BUT NO EFFUSION/PATH PENDING Objective: Vital Signs Temp Pulse Resp BP Pulse Ox 36.1 C 66 15 91/52 L 98 02/23/17 13:12 02/23/17 13:12 02/23/17 13:30 02/23/17 13:30 02/23/17 13:30 02/22/17 02/23/17 02/24/17 05:59 05:59 05:59 Intake Total 1220 400 Output Total 10 40 Balance 1210 360 ICD10 Worksheet Patient Problems: Problems Problem Status Onset C. difficile colitis Acute 12/30/14
[2017-02-23] MEDS: LIDOCAINE 5% 1 EA PATCH TD SCH ×2 (18:22→19:12)
[2017-02-23] MEDS: ATORVASTATIN CALCIUM 10 MG TAB PO SCH (20:22)
[2017-02-23] MEDS: PATCH REMOVAL 1 EA PATCH TD SCH (21:10)
[2017-02-24] MEDS: OXYCODONE/APAP 5/325 TAB PO PRN ×5 (04:41→22:38)
[2017-02-24] MEDS: NS W/ 20 KCl/L 1,000 ML IV SCH (04:44)
[2017-02-24 04:57] LABS: HEMATOCRIT 37.2 % (38.0-47.0)
[2017-02-24 05:32] LABS: ANION GAP 7 mEq/L (8-16); CALCIUM 8.5 mg/dL (8.5-10.4); CARBON DIOXIDE 23 mEq/l (22-31); CHLORIDE 111 mEq/L (97-110); CREATININE 0.5 mg/dL (0.6-1.0); GLOMERULAR FILTRATION RATE > 60; GLUCOSE 107 mg/dL (70-100); POTASSIUM 4.9 mEq/L (3.5-5.2); SODIUM 141 mEq/L (134-144)
--- NOTE | 2017-02-24 08:11 | GOP ---
[f rep st] OPERATIVE REPORT DATE OF OPERATION: 02/23/2017 SURGEON: Juanjose Smith MD TELEVISION REPAIRER: Radha Ruiz PA-C. ANESTHESIOLOGIST: Marko Montoya MD. PREOPERATIVE DIAGNOSIS: Persistent air leak. 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 PROCEDURE PERFORMED: Thoracoscopy, thoracotomy with decortication; wedge, right upper lobe lung, partial lobectomy; pleurodesis; and repair of pleural defects. OPERATIVE FINDINGS: The patient was found to have a 5 mm nodule in the right upper lobe which was consistent with adenocarcinoma, and had significant adhesions to the chest wall and the old thoracotomy incision. No definite actual leaking site could be proven. There were several leaks in the pleura that were created by the dissection but there was no definite leakage from the hilum or the bronchial stump, or from the previous suture lines. ESTIMATED BLOOD LOSS: Less than 50 cc. DESCRIPTION OF PROCEDURE: The patient was taken to the operating room where she received satisfactory general endotracheal anesthesia by Dr. Montoya. A double-lumen endotracheal tube was placed. She was placed in the left lateral decubitus position. She was prepped and draped in the usual sterile fashion. A short incision was made and a trocar was introduced in the upper thorax. Good visualization was obtained. A second trocar was introduced under direct vision. There was no obvious air leakage visible; however, the lung was adherent to the chest wall and seeing behind the lung was not possible. The adhesions were taken down carefully as best they could but then the dissection became quite difficult resulting in injury to the lung. At that point, it was elected to change to a thoracotomy. A short incision was made through the previous old incision and entry into the 5th intercostal space was made. Further adhesiolysis was achieved. This required some increase in the length of the incision until the lung could be completely freed and mobilized circumferentially. The hilum was then checked and evaluated. There was no evidence of any bronchial leak. The pleural surfaces of the right upper lobe were carefully checked. There were several areas that were injured. Some of these were from the recent dissection and one may have been the original cause of her persistent leak but that is not actually able to be determined. These leaks were all either suture ligated with 3-0 Vicryl or stapled with Endo-CHRIST stapler. In exploring the lung again a small nodule was identified in the upper lobe. This was wedged out with a CHRIST 75 stapler and sent for frozen section. The decortication of the lung was completed and the suture lines were all checked. They were reinforced with either Dermabond glue or Evicel glue and then talcum powder was sprayed through the pleural surfaces for eventual pleurodesis. However, at that time, the frozen section was returned as possibly consistent with adenocarcinoma of the lung. We re-evaluated the lung at that point and the area of question in the upper lobe was wedged out with a wider excision. Since the lesion was only 5 mm and appeared to be clear on the biopsy, it was not felt in the patient's best interest to do an upper lobectomy since she has already had a lower lobectomy on that side. Wedge biopsy appeared to obtain complete safe margins. The lung was again tested under water. There were no major air leaks. Two 28-Yoruba chest tubes were brought in through separate stab incisions and placed in the apex of the chest. They were secured at the exit site with 2-0 silk sutures. Wounds were infiltrated with 0.5% Marcaine. Chest tubes were connected to a Pleur-Evac drainage system. The chest was then closed in layers using #1 Vicryl pericostal sutures and running #1 Vicryl sutures for the muscular layers, 2-0 Vicryl for the subcutaneous tissue, and skin jessie for the skin. She tolerated the procedure quite well. There were no complications. DISPOSITION: She was taken to recovery room in good condition. COMPLICATIONS: There were no complications. Copy requested to: Dr. Wan /[id number]/MODL MTDD
[2017-02-24] MEDS: IBUPROFEN 600 MG TAB PO PRN (08:13)
[2017-02-24] MEDS: LIDOCAINE 5% 1 EA PATCH TD SCH ×2 (08:14→12:28)
[2017-02-24] MEDS: DOCUSATE SODIUM 100 MG CAP PO SCH ×2 (08:15→20:12)
[2017-02-24] MEDS: ASCORBIC ACID 500 MG TAB PO SCH ×2 (08:15→20:12)
[2017-02-24] MEDS: PANTOPRAZOLE SODIUM 40 MG TAB PO SCH (08:15)
[2017-02-24] MEDS: VITAMIN B COMPLEX 1 EA CAP/TAB PO SCH (08:15)
[2017-02-24] MEDS: CALCIUM CARBONATE 500 MG TAB PO SCH ×2 (08:15→20:13)
[2017-02-24] MEDS: OMEGA-3 FATTY ACIDS 1,000 MG CAP PO SCH ×2 (08:15→20:13)
--- NOTE | 2017-02-24 08:56 | PDINTPN ---
Bit Welder Progress Note Assessment/Plan: Assessment/plan: * Persistent pneumothorax after lobectomy * Status post VATS pleurodesis, partial lobectomy. Chest x-ray shows slight improvement in right-sided pneumothorax. -continue chest tube suction * Lung nodule-path pending, but suspicious for cancer * Respiratory-stable on minimal oxygen * Pain-controlled on ASBESTOS MICROSCOPIST * Depression * Aortic aneurysm * GERD Subjective: Pain better controlled. Breathing easily. Objective: Vital Signs Temp Pulse Resp BP Pulse Ox 37.5 C 90 16 95/56 L 97 02/24/17 05:00 02/24/17 06:00 02/24/17 06:00 02/24/17 06:00 02/24/17 06:00 Laboratory Results 02/24/17 04:50 02/24/17 04:50 02/23/17 02/24/17 02/25/17 05:59 05:59 05:59 Intake Total 400 1952 Output Total 40 1160 Balance 360 792 Chest [id number] by myself. Right-sided pneumothorax slightly improved. Chest tube number 1 has been pulled back Physical Exam - Physical Exam General Appearance: alert, no apparent distress EENT: PERRL/EOMI, normal ENT inspection Neck: non-tender, full range of motion, supple, normal inspection Respiratory: crackles (Right base), No respiratory distress, No wheezing Cardiac/Chest: normal peripheral pulses, regular rate, rhythm, other (Chest tubes in place) Peripheral Pulses: 2+: carotid (R), carotid (L), femoral (R), femoral (L), dorsalis-pedis (R), dorsalis-pedis (L) Abdomen: normal bowel sounds, non-tender, soft Pelvic Exam: deferred Rectal: deferred Skin: normal color, warm/dry Extremities: normal range of motion, non-tender, normal inspection, normal capillary refill ICD10 Worksheet Patient Problems: Problems Problem Status Onset C. difficile colitis Acute 12/30/14
[2017-02-24] MEDS: KETOROLAC 15 MG/1 ML SDV IVP SCH ×3 (12:33→23:39)
[2017-02-24] MEDS: HYDROmorphONE/DILAUDID 6 MG/30 ML PCA IV PRN (15:06)
--- NOTE | 2017-02-24 16:33 | SOAPPROG ---
SOAP Progress Note Assessment/Plan: Assessment/Plan: 72 Y F RLL resection, readmitted with PTX and pleural effusion after [place] home to [place]. Now s/p R VATS with thoracotomy, partial lobectomy for likely malignancy, decortication, oversew repair of pleural leak. POD#1. Seen by both myself and Dr. Smith today. Chest tube retracted with holes in the subQ, almost externalized. This tube removed by Dr. Smtih, despite persistent PTX. No air leak with remaining tube in place. Continue post op pain control. Restarted toradol and added lidoderm patch for shoulder pain. Dial out soon when more mobile. Regular diet. Pathology pending. Txr from ICU. S: Pain controlled with multiple medicines. No SOB. O: alert, nad no air leak per Dr. Smith after CT removal, no wob wounds intact. 02/24/17 16:29 Objective: Vital Signs Temp Pulse Resp BP Pulse Ox 36.6 C 83 16 97/52 L 97 02/24/17 15:51 02/24/17 15:51 02/24/17 15:51 02/24/17 15:51 02/24/17 15:51 Laboratory Results 02/24/17 04:50 02/24/17 04:50 02/23/17 02/24/17 02/25/17 05:59 05:59 05:59 Intake Total 400 3052 Output Total 40 1160 Balance 360 792 ICD10 Worksheet Patient Problems: Problems Problem Status Onset C. difficile colitis Acute 12/30/14
[2017-02-24] MEDS: ATORVASTATIN CALCIUM 10 MG TAB PO SCH (20:12)
[2017-02-24] MEDS: PATCH REMOVAL 1 EA PATCH TD SCH (20:16)
[2017-02-24] MEDS ORDERED: MIDAZOLAM 2 MG/2 ML VIAL IVP ONE (21:00)
[2017-02-24] MEDS ORDERED: LIDOCAINE 1% *Not for Epidural 20 ML MDV NB ONE (21:00)
[2017-02-24] MEDS ORDERED: fentaNYL 100 MCG/2 ML INJ IVP ONE (21:01)
--- NOTE | 2017-02-24 21:02 | SOAPPROG ---
SOAP Progress Note Assessment/Plan: Assessment: s/p wedge and chest tubes out. Will replace chest tube. Risks and benefits discussed Plan: 01/31/17 11:40 02/01/17 08:37 02/21/17 10:56 02/22/17 11:44 02/24/17 21:02 Objective: Vital Signs Temp Pulse Resp BP Pulse Ox 36.7 C 91 15 103/56 L 90 L 02/24/17 20:00 02/24/17 20:00 02/24/17 20:00 02/24/17 20:00 02/24/17 20:00 Laboratory Results 02/24/17 04:50 02/24/17 04:50 02/23/17 02/24/17 02/25/17 05:59 05:59 05:59 Intake Total 400 1952 1160 Output Total 40 1160 560 Balance 360 482 600 ICD10 Worksheet Patient Problems: Problems Problem Status Onset C. difficile colitis Acute 12/30/14
[2017-02-24] MEDS ORDERED: LIDOCAINE 1% 300 MG/30 ML SDV ONE (21:12)
[2017-02-24] MEDS ORDERED: MIDAZOLAM 2 MG/2 ML VIAL ONE (21:22)
[2017-02-25] MEDS: OXYCODONE/APAP 5/325 TAB PO PRN ×6 (04:24→21:48)
[2017-02-25] MEDS: KETOROLAC 15 MG/1 ML SDV IVP SCH ×4 (05:57→23:35)
--- NOTE | 2017-02-25 08:10 | GOP ---
[f rep st] OPERATIVE REPORT DATE OF OPERATION: 02/24/2017 SURGEON: Megan Velasquez MD ANESTHESIA: Conscious sedation with Versed 2 mg and fentanyl 50 mcg. PREOPERATIVE DIAGNOSIS: Right pneumothorax. POSTOPERATIVE DIAGNOSIS: Right pneumothorax. PROCEDURE PERFORMED: Right tube thoracostomy. FINDINGS: Huge gush of air and fluid. ESTIMATED BLOOD LOSS: 5 cc. INDICATIONS: The patient is a 72-year-old woman who recently underwent thoracotomy with wedge biops y. One of her chest tubes pulled out slightly today and the apical chest tube was removed. Her pneu mothorax was near complete collapse. DESCRIPTION OF PROCEDURE: The patient was in the ICU. Her remaining chest tube was removed. Her r ight chest was prepped and draped in the usual sterile fashion. Time-out was performed. I infiltra miah all sites with 8 cc of 1% lidocaine and made an incision. I dissected down through the subcutan eous space. I entered the pleural space with the pleural cavity, which had a huge gush of air and f luid that came out. I directed the chest tube. It appeared to be traversing subcutaneously. I the n entered the chest cavity again and the chest tube was successfully placed in the chest cavity. It was connected to the Pleur-Evac. It was sutured in place with 0 Vicryl. Gauze and a dressing were applied. Chest x-ray showed improvement of the pneumothorax. She may need an additional apical chest tube placed tomorrow. It is unclear about how much her lung will expand with the amount of surgery that she has had. She is hemodynamically stable. SURGEON: Megan Velasquez MD. /[id number]/MODL
[2017-02-25] MEDS: VITAMIN B COMPLEX 1 EA CAP/TAB PO SCH (09:10)
[2017-02-25] MEDS: DOCUSATE SODIUM 100 MG CAP PO SCH ×2 (09:10→09:11)
[2017-02-25] MEDS: LIDOCAINE 5% 1 EA PATCH TD SCH (09:11)
[2017-02-25] MEDS: ASCORBIC ACID 500 MG TAB PO SCH ×2 (09:11→20:41)
[2017-02-25] MEDS: CALCIUM CARBONATE 500 MG TAB PO SCH ×2 (09:11→20:41)
[2017-02-25] MEDS: OMEGA-3 FATTY ACIDS 1,000 MG CAP PO SCH ×2 (09:12→20:42)
[2017-02-25] MEDS: PANTOPRAZOLE SODIUM 40 MG TAB PO SCH (09:12)
--- NOTE | 2017-02-25 09:27 | SOAPPROG ---
SOAP Progress Note Assessment/Plan: Assessment/Plan: 72 Y F RLL resection, readmitted with PTX and pleural effusion after [place] home to [place]. Now s/p R VATS with thoracotomy, partial lobectomy for likely malignancy, decortication, oversew repair of pleural leak. POD#2. New chest tube in place. Still with PTX, but improved with new tube. Continue to suction. Continue pain control. Dial is out. Regular diet. Ok to start VTE ppx today. Pathology pending, probable malignancy Txr from ICU to med surg. Dispo: pending. S: Pain controlled with multiple medicines. No SOB. O: alert, nad mmm no air leak decreased BS R, no w/r/r wounds intact. rrr abd soft ext wwp, no edema 02/25/17 09:24 Objective: Vital Signs Temp Pulse Resp BP Pulse Ox 37.1 C 98 18 87/51 L 97 02/25/17 07:49 02/25/17 07:49 02/25/17 07:49 02/25/17 07:49 02/25/17 07:49 Laboratory Results 02/24/17 04:50 02/24/17 04:50 02/24/17 02/25/17 02/26/17 05:59 05:59 05:59 Intake Total 5109 2672.4 Output Total 1160 730 Balance 792 1012.4 ICD10 Worksheet Patient Problems: Problems Problem Status Onset C. difficile colitis Acute 12/30/14
[2017-02-25] MEDS: ATORVASTATIN CALCIUM 10 MG TAB PO SCH (20:41)
[2017-02-25] MEDS: HYDROmorphONE/DILAUDID 1 MG/ML SYR IVP PRN (20:42)
[2017-02-25] MEDS: PATCH REMOVAL 1 EA PATCH TD SCH (23:35)
[2017-02-26] MEDS: OXYCODONE/APAP 5/325 TAB PO PRN ×5 (02:33→22:00)
[2017-02-26] MEDS: KETOROLAC 15 MG/1 ML SDV IVP SCH ×4 (05:47→22:59)
[2017-02-26] MEDS: LIDOCAINE 5% 1 EA PATCH TD SCH (08:28)
[2017-02-26] MEDS: CALCIUM CARBONATE 500 MG TAB PO SCH ×2 (08:34→20:14)
[2017-02-26] MEDS: VITAMIN B COMPLEX 1 EA CAP/TAB PO SCH (08:34)
[2017-02-26] MEDS: ASCORBIC ACID 500 MG TAB PO SCH ×2 (08:34→20:14)
[2017-02-26] MEDS: OMEGA-3 FATTY ACIDS 1,000 MG CAP PO SCH ×2 (08:35→20:14)
[2017-02-26] MEDS: PANTOPRAZOLE SODIUM 40 MG TAB PO SCH (08:35)
[2017-02-26] MEDS: DOCUSATE SODIUM 100 MG CAP PO SCH ×2 (08:35→20:14)
--- NOTE | 2017-02-26 08:45 | SOAPPROG ---
SOAP Progress Note Assessment/Plan: Assessment: 72 yo female s/p RLL resection, readmitted with right PTX and pleural effusion after returning home to [place]. Now s/p right VATS with thoracotomy, partial lobectomy for likely malignancy, decortication, oversew of pleural leak. POD #3 CXR performed this morning demonstrates little to no change compared with CXR from yesterday 02/25/17. S: Patient feeling well, but tired this morning, slight disorientation but improving. Denies SOB. Complaining of some discomfort from the chest tube site and RLQ. Passing flatus but no bowel movement yet. Pain is well controlled. O: NAD MMM No air leak from chest tube No increased WOB. Decreased breath sounds on right. RRR Abd soft, some RLQ tenderness to palpation BS present Chest tube site dressed, Skin irritation from tape dressing on right. Plan: Patient seen by and discussed with Dr. Smith. Chest tube in place, continue to suction Continue pain control Bowel reg for constipation Continue VTE ppx today Pathology still pending Objective: Vital Signs Temp Pulse Resp BP Pulse Ox 36.9 C 97 20 157/92 H 85 L 02/26/17 08:00 02/26/17 08:00 02/26/17 08:00 02/26/17 08:00 02/26/17 08:00 Laboratory Results 02/24/17 04:50 02/24/17 04:50 02/25/17 02/26/17 02/27/17 05:59 05:59 05:59 Intake Total 1742.4 600 Output Total 730 350 Balance 1012.4 250 ICD10 Worksheet Patient Problems: Problems Problem Status Onset C. difficile colitis Acute 12/30/14
[2017-02-26] MEDS: HYDROmorphONE/DILAUDID 1 MG/ML SYR IVP PRN ×2 (09:05→20:13)
[2017-02-26] MEDS ORDERED: LACTULOSE 20 GM/30 ML UDCUP PO PRN (10:38)
[2017-02-26] MEDS ORDERED: POLYETHYLENE GLYCOL 3350 17 GM PKT PO PRN (10:38)
[2017-02-26] MEDS ORDERED: BISACODYL 10 MG SUPP PR PRN (10:38)
[2017-02-26] MEDS ORDERED: MAGNESIUM HYDROXIDE 30 ML UDCUP PO PRN (10:38)
[2017-02-26] MEDS: SENNOSIDES/DOCUSATE SODIUM TAB PO SCH (20:13)
[2017-02-26] MEDS: ATORVASTATIN CALCIUM 10 MG TAB PO SCH (20:14)
[2017-02-26] MEDS: PATCH REMOVAL 1 EA PATCH TD SCH (22:59)
[2017-02-27] MEDS: OXYCODONE/APAP 5/325 TAB PO PRN ×5 (01:49→20:18)
[2017-02-27] MEDS: KETOROLAC 15 MG/1 ML SDV IVP SCH ×3 (05:38→18:07)
[2017-02-27] MEDS: OMEGA-3 FATTY ACIDS 1,000 MG CAP PO SCH ×2 (08:45→20:17)
[2017-02-27] MEDS: VITAMIN B COMPLEX 1 EA CAP/TAB PO SCH (08:45)
[2017-02-27] MEDS: DOCUSATE SODIUM 100 MG CAP PO SCH ×2 (08:45→20:18)
[2017-02-27] MEDS: PANTOPRAZOLE SODIUM 40 MG TAB PO SCH (08:45)
[2017-02-27] MEDS: ACETAMINOPHEN 325 MG TAB PO PRN (08:45)
[2017-02-27] MEDS: ASCORBIC ACID 500 MG TAB PO SCH ×2 (08:45→20:18)
[2017-02-27] MEDS: SENNOSIDES/DOCUSATE SODIUM TAB PO SCH ×2 (08:45→20:17)
[2017-02-27] MEDS: CALCIUM CARBONATE 500 MG TAB PO SCH ×2 (08:45→20:17)
[2017-02-27] MEDS: LIDOCAINE 5% 1 EA PATCH TD SCH (08:45)
--- NOTE | 2017-02-27 10:43 | SOAPPROG ---
SOAP Progress Note Assessment/Plan: Assessment: 72 yo female s/p RLL resection, readmitted with right PTX and pleural effusion after returning home to [place]. Now s/p right VATS with thoracotomy, partial lobectomy for likely malignancy, decortication, oversew of pleural leak. POD #4 Pathology report states reactive fibrosis with no malignancy identified CXR performed 02/26 demonstrates little to no change compared with CXR from . S: Patient feeling well, slight frustration over weather or not she is improving and when she will be able to go home. Denies SOB. Complaining of some discomfort from the chest tube site. She was concerned over "bothering" her nurses for pain medication, but overall pain is controlled. O: NAD MMM No air leak from chest tube No increased WOB. Decreased breath sounds on right. Abd soft, some RLQ tenderness to palpation BS present Chest tube site dressed, Plan: Patient seen by and discussed with Dr. Smith. Chest tube in place, take off suction CXR in 3 hours Continue pain control Bowel reg for constipation Continue VTE ppx today 02/27/17 10:37 Objective: Vital Signs Temp Pulse Resp BP Pulse Ox 36.8 C 79 16 150/91 H 99 02/27/17 07:38 02/27/17 07:38 02/27/17 07:38 02/27/17 07:38 02/27/17 07:38 Laboratory Results 02/24/17 04:50 02/24/17 04:50 02/26/17 02/27/17 02/28/17 05:59 05:59 05:59 Intake Total 600 250 Output Total 350 1345 Balance 250 -1095 ICD10 Worksheet Patient Problems: Problems Problem Status Onset C. difficile colitis Acute 12/30/14
[2017-02-27] MEDS: ATORVASTATIN CALCIUM 10 MG TAB PO SCH (20:17)
[2017-02-27] MEDS: PATCH REMOVAL 1 EA PATCH TD SCH (20:22)
--- NOTE | 2017-02-27 20:50 | SOAPPROG ---
SOAP Progress Note Assessment/Plan: Assessment: COMFORTABLE IN DOING WELL BUT LUNG STILL NOT COMPLETELY EXPANDED/NO AIR LEAK ON CHEST TUBE DRAINAGE/DRAINAGE VOLUME DECREASED MAY NEED ADDITIONAL CHEST TUBE IF NOT IMPROVED Plan: CHEST X-RAY IN THE A.M. 01/29/17 19:01 01/30/17 08:57 COMFORTABLE/ VS STABLE/ NO AIR LEAK BUT STILL NOT FULLY EXPANDED/ WILL PLACE APICAL PNEUMOCATH TODAY 02/06/17 16:05 Breath sounds equal but still small air leak/patient starting to get frustrated/ no obvious leak in the system but will change Pleur-Evac 02/11/17 09:04 COMFORTABLE/ WOUND OK/ STILL WITH TINY AIRLEAK/ CXR STABLE WITH 15% PNEUMO/ ? SLIGHTLY SMALLER 02/13/17 15:08 PATIENT COMFORTABLE AND BOARD/WANTS TO GO HOME/NO AIR LEAK TODAY FOR THE 1ST TIME/DRAINAGE MINIMAL/ PLAN CHEST X-RAY IN THE MORNING AND DC CHEST TUBE IF NO AIR LEAK EVEN IF NOT FULLY EXPANDED/MAY NEED HOME OXYGEN TO GO BACK TO [place] AT 9000 FEET 02/17/17 20:59 FOLLOW-UP CHEST X-RAYS AFTER REMOVAL OF CHEST TUBE SHOWED ENLARGING PNEUMOTHORAX /RISKS AND OPTIONS FULLY DISCUSSED/WILL PROCEED WITH PLACING NEW APICAL CHEST TUBE 02/18/17 15:16 LUNG REASONABLY WELL EXPANDED ON CHEST X-RAY BUT STILL WITH A SMALL AIR LEAK/ RISKS AND OPTIONS FULLY DISCUSSED INCLUDING POSSIBILITY OF SURGERY TO CORRECT THE AIR LEAK/ WE WILL CONTINUE TO WORK ON PLEUR-EVAC SUCTION DRAINAGE 02/19/17 14:27 CXR IMPROVING/ MINIMAL AIR LEAK/ WILL WATCH OVER WEEKEND/ IF LEAK FAILS TO RESOLVE WILL PROCEED WITH VATS PLEURODESIS 02/23/17 17:39 COMFORTABLE/VITAL SIGNS STABLE/AFEBRILE/POSITIVE AIR LEAK/CHEST X-RAY SHOWS FAILED RE-EXPANSION OF THE LUNG BUT NO EFFUSION/PATH PENDING 02/27/17 20:49 CXR STABLE OFF SUCTION/ COMFORTABLE/ NO AIR LEAK/ DRAINAGE DECREASED/ WOUND OK/ HOPEFULLY HOME THIS Objective: Vital Signs Temp Pulse Resp BP Pulse Ox 36.9 C 85 20 144/87 H 95 02/27/17 19:54 02/27/17 19:54 02/27/17 19:54 02/27/17 19:54 02/27/17 19:54 Laboratory Results 02/24/17 04:50 02/24/17 04:50 02/26/17 02/27/17 02/28/17 05:59 05:59 05:59 Intake Total 600 250 Output Total 350 1345 Balance 250 -1095 ICD10 Worksheet Patient Problems: Problems Problem Status Onset C. difficile colitis Acute 12/30/14
[2017-02-28] MEDS: KETOROLAC 15 MG/1 ML SDV IVP SCH ×4 (00:11→16:58)
[2017-02-28] MEDS: OXYCODONE/APAP 5/325 TAB PO PRN ×5 (03:15→20:45)
[2017-02-28] MEDS: ASCORBIC ACID 500 MG TAB PO SCH ×2 (08:25→20:35)
[2017-02-28] MEDS: LIDOCAINE 5% 1 EA PATCH TD SCH (08:25)
[2017-02-28] MEDS: DOCUSATE SODIUM 100 MG CAP PO SCH ×2 (08:25→20:35)
[2017-02-28] MEDS: CALCIUM CARBONATE 500 MG TAB PO SCH ×2 (08:26→20:34)
[2017-02-28] MEDS: OMEGA-3 FATTY ACIDS 1,000 MG CAP PO SCH ×2 (08:26→20:34)
[2017-02-28] MEDS: VITAMIN B COMPLEX 1 EA CAP/TAB PO SCH (08:26)
[2017-02-28] MEDS: PANTOPRAZOLE SODIUM 40 MG TAB PO SCH (08:26)
[2017-02-28] MEDS: SENNOSIDES/DOCUSATE SODIUM TAB PO SCH ×2 (08:26→20:35)
--- NOTE | 2017-02-28 11:23 | SOAPPROG ---
SOAP Progress Note Assessment/Plan: Assessment: 72yo F with prolonged hospital course s/p RLL resection readmitted with R ptx, now s/p R thoracotomy with partial lobectomy/decortication/ pleurodesis. Prolonged post-op air leak sealed, but returned this morning. Place back to suction and re-image this afternoon Final path neg for malignancy Pain controlled Dispo: continue inpatient until chest tubes managed. hopefully home this weekend if air leak improves and chest tube can be removed. will need to go home with O2 [place]. S: feeling well but noticed bubbles in the chest tube this morning. pain controlled. working with PT/OT O: sitting upright at edge of bed, comfortable, NAD No increased WOB, decrease BS with occasional crackles right apex. Otherwise clear RRR Chest tube dressing clean and intact Min serosanguinous drainage from chest tube. + air leak with cough. Objective: Vital Signs Temp Pulse Resp BP Pulse Ox 36.7 C 95 16 165/92 H 90 L 02/28/17 08:00 02/28/17 08:00 02/28/17 08:00 02/28/17 08:00 02/28/17 08:00 Laboratory Results 02/24/17 04:50 02/24/17 04:50 02/27/17 02/28/17 03/01/17 05:59 05:59 05:59 Intake Total 250 250 Output Total 1345 90 Balance -1095 250 -90 ICD10 Worksheet Patient Problems: Problems Problem Status Onset C. difficile colitis Acute 12/30/14
[2017-02-28] MEDS: ATORVASTATIN CALCIUM 10 MG TAB PO SCH (20:34)
[2017-02-28] MEDS: PATCH REMOVAL 1 EA PATCH TD SCH (20:36)
[2017-03-01] MEDS: KETOROLAC 15 MG/1 ML SDV IVP SCH ×2 (00:19→05:47)
[2017-03-01] MEDS: OXYCODONE/APAP 5/325 TAB PO PRN ×6 (01:10→23:41)
[2017-03-01] MEDS: ASCORBIC ACID 500 MG TAB PO SCH ×2 (08:39→20:55)
[2017-03-01] MEDS: CALCIUM CARBONATE 500 MG TAB PO SCH ×2 (08:39→20:56)
[2017-03-01] MEDS: DOCUSATE SODIUM 100 MG CAP PO SCH ×2 (08:39→20:56)
[2017-03-01] MEDS: VITAMIN B COMPLEX 1 EA CAP/TAB PO SCH (08:39)
[2017-03-01] MEDS: OMEGA-3 FATTY ACIDS 1,000 MG CAP PO SCH ×2 (08:39→20:55)
[2017-03-01] MEDS: PANTOPRAZOLE SODIUM 40 MG TAB PO SCH (08:39)
[2017-03-01] MEDS: SENNOSIDES/DOCUSATE SODIUM TAB PO SCH ×2 (08:40→20:56)
[2017-03-01] MEDS: LIDOCAINE 5% 1 EA PATCH TD SCH (08:40)
--- NOTE | 2017-03-01 11:19 | SOAPPROG ---
SOAP Progress Note Assessment/Plan: Assessment: 72yo F with prolonged hospital course s/p RLL resection readmitted with R ptx, now s/p R thoracotomy with partial lobectomy/decortication/ pleurodesis. Prolonged post-op air leak sealed, but returned yesterday. Less prominent today after being on suction overnight Increased serous output - 100mL already this am Off suction today and re-image tomorrow am. If stable, then can pull chest tube Final path neg for malignancy Pain controlled Cloudy urine with dysuria - check UA Dispo: continue inpatient until chest tubes managed. hopefully home soon. will need to go home with O2 because [place]. S: pain controlled. c/o cloudy urine with irritation. no hematuria. episode of nausea after eating cottage cheese - improved O: sitting upright at edge of bed, comfortable, NAD, at bedside No increased WOB, decrease BS R. RRR Chest tube dressing clean and intact Serosanguinous drainage from chest tube. Air leak improved 03/01/17 11:20 Objective: Vital Signs Temp Pulse Resp BP Pulse Ox 36.6 C 93 12 155/88 H 92 03/01/17 08:00 03/01/17 08:00 03/01/17 08:00 03/01/17 08:00 03/01/17 08:00 Laboratory Results 02/24/17 04:50 02/24/17 04:50 02/28/17 03/01/17 03/02/17 05:59 05:59 05:59 Intake Total 250 980 240 Output Total 2265 100 Balance 250 -1285 140 ICD10 Worksheet Patient Problems: Problems Problem Status Onset C. difficile colitis Acute 12/30/14
[2017-03-01 12:05] LABS: COLOR AMBER; LEUKOCYTE ESTERASE,URINE TRACE (NEGATIVE); NITRITE,URINE NEGATIVE (NEGATIVE)
[2017-03-01 12:14] LABS: BACTERIA 1+ /hpf (NONE SEEN); MUCUS TRACE /lpf (NONE-1+)
[2017-03-01] MEDS: CEPACOL LOZENGE PO PRN ×2 (15:34→23:46)
[2017-03-01] MEDS: IBUPROFEN 600 MG TAB PO PRN (16:46)
[2017-03-01] MEDS: ATORVASTATIN CALCIUM 10 MG TAB PO SCH (20:54)
[2017-03-01] MEDS: PATCH REMOVAL 1 EA PATCH TD SCH (20:59)
[2017-03-01] MEDS: ACETAMINOPHEN 325 MG TAB PO PRN (21:05)
[2017-03-02] MEDS: IBUPROFEN 600 MG TAB PO PRN ×2 (02:54→11:09)
[2017-03-02] MEDS: OXYCODONE/APAP 5/325 TAB PO PRN ×5 (04:21→22:36)
[2017-03-02] MEDS: ACETAMINOPHEN 325 MG TAB PO PRN (05:47)
[2017-03-02] MEDS: ASCORBIC ACID 500 MG TAB PO SCH ×2 (08:32→20:33)
[2017-03-02] MEDS: OMEGA-3 FATTY ACIDS 1,000 MG CAP PO SCH ×2 (08:33→20:33)
[2017-03-02] MEDS: PANTOPRAZOLE SODIUM 40 MG TAB PO SCH (08:33)
[2017-03-02] MEDS: CALCIUM CARBONATE 500 MG TAB PO SCH ×2 (08:33→20:34)
[2017-03-02] MEDS: VITAMIN B COMPLEX 1 EA CAP/TAB PO SCH (08:33)
[2017-03-02] MEDS: DOCUSATE SODIUM 100 MG CAP PO SCH ×2 (08:33→20:34)
[2017-03-02] MEDS: SENNOSIDES/DOCUSATE SODIUM TAB PO SCH ×2 (08:33→20:33)
[2017-03-02] MEDS: LIDOCAINE 5% 1 EA PATCH TD SCH (08:33)
--- NOTE | 2017-03-02 11:02 | SOAPPROG ---
SOAP Progress Note Assessment/Plan: Assessment/Plan: 72 Y F RLL resection, readmitted with PTX and pleural effusion after returning home to [place]. Now s/p R VATS with thoracotomy, partial lobectomy for likely malignancy, decortication, oversew repair of pleural leak. CXR stable while chest tube to water seal. D/w'ed Dr. Smith who also saw patient today. Will exchange pleurovac for a Heimlich valve today and observe for a few days. If does well, then will consider d/c to home with valve and early outpatient f/u. Dispo: pending. S: Pain controlled. No SOB. No CP. O: alert, nad mmm no air leak wounds intact. rrr abd soft,nt 03/02/17 10:57 Objective: Vital Signs Temp Pulse Resp BP Pulse Ox 36.7 C 78 14 162/92 H 99 03/02/17 08:00 03/02/17 08:00 03/02/17 08:00 03/02/17 08:00 03/02/17 08:00 Laboratory Results 02/24/17 04:50 02/24/17 04:50 03/01/17 03/02/17 03/03/17 05:59 05:59 05:59 Intake Total 980 980 Output Total 2966 4623 Balance -1285 -1241 ICD10 Worksheet Patient Problems: Problems Problem Status Onset C. difficile colitis Acute 12/30/14
[2017-03-02] MEDS ORDERED: IBUPROFEN 600 MG TAB PO SCH (14:00)
[2017-03-02] MEDS: IBUPROFEN 600 MG TAB PO SCH (16:13)
[2017-03-02] MEDS: ATORVASTATIN CALCIUM 10 MG TAB PO SCH (20:33)
[2017-03-02] MEDS: PATCH REMOVAL 1 EA PATCH TD SCH (21:42)
[2017-03-02] MEDS: CEPACOL LOZENGE PO PRN (22:44)
[2017-03-03] MEDS: OXYCODONE/APAP 5/325 TAB PO PRN ×5 (04:25→22:46)
[2017-03-03] MEDS: IBUPROFEN 600 MG TAB PO SCH ×3 (08:03→16:16)
[2017-03-03] MEDS: OMEGA-3 FATTY ACIDS 1,000 MG CAP PO SCH ×2 (08:05→20:57)
[2017-03-03] MEDS: PANTOPRAZOLE SODIUM 40 MG TAB PO SCH (08:05)
[2017-03-03] MEDS: DOCUSATE SODIUM 100 MG CAP PO SCH ×2 (08:05→20:58)
[2017-03-03] MEDS: VITAMIN B COMPLEX 1 EA CAP/TAB PO SCH (08:05)
[2017-03-03] MEDS: CALCIUM CARBONATE 500 MG TAB PO SCH ×2 (08:05→20:56)
[2017-03-03] MEDS: ASCORBIC ACID 500 MG TAB PO SCH ×2 (08:06→20:57)
[2017-03-03] MEDS: SENNOSIDES/DOCUSATE SODIUM TAB PO SCH ×2 (08:06→21:32)
[2017-03-03] MEDS: LIDOCAINE 5% 1 EA PATCH TD SCH (08:06)
--- NOTE | 2017-03-03 11:24 | SOAPPROG ---
SOAP Progress Note Assessment/Plan: Assessment: COMFORTABLE IN DOING WELL BUT LUNG STILL NOT COMPLETELY EXPANDED/NO AIR LEAK ON CHEST TUBE DRAINAGE/DRAINAGE VOLUME DECREASED MAY NEED ADDITIONAL CHEST TUBE IF NOT IMPROVED Plan: CHEST X-RAY IN THE A.M. 01/29/17 19:01 01/30/17 08:57 COMFORTABLE/ VS STABLE/ NO AIR LEAK BUT STILL NOT FULLY EXPANDED/ WILL PLACE APICAL PNEUMOCATH TODAY 02/06/17 16:05 Breath sounds equal but still small air leak/patient starting to get frustrated/ no obvious leak in the system but will change Pleur-Evac 02/11/17 09:04 COMFORTABLE/ WOUND OK/ STILL WITH TINY AIRLEAK/ CXR STABLE WITH 15% PNEUMO/ ? SLIGHTLY SMALLER 02/13/17 15:08 PATIENT COMFORTABLE AND BOARD/WANTS TO GO HOME/NO AIR LEAK TODAY FOR THE 1ST TIME/DRAINAGE MINIMAL/ PLAN CHEST X-RAY IN THE MORNING AND DC CHEST TUBE IF NO AIR LEAK EVEN IF NOT FULLY EXPANDED/MAY NEED HOME OXYGEN TO GO BACK TO [place] AT [address] FE[address] 02/17/17 20:59 FOLLOW-UP CHEST X-RAYS AFTER REMOVAL OF CHEST TUBE SHOWED ENLARGING PNEUMOTHORAX /RISKS AND OPTIONS FULLY DISCUSSED/WILL PROCEED WITH PLACING NEW APICAL CHEST TUBE 02/18/17 15:16 LUNG REASONABLY WELL EXPANDED ON CHEST X-RAY BUT STILL WITH A SMALL AIR LEAK/ RISKS AND OPTIONS FULLY DISCUSSED INCLUDING POSSIBILITY OF SURGERY TO CORRECT THE AIR LEAK/ WE WILL CONTINUE TO WORK ON PLEUR-EVAC SUCTION DRAINAGE 02/19/17 14:27 CXR IMPROVING/ MINIMAL AIR LEAK/ WILL WATCH OVER WEEKEND/ IF LEAK FAILS TO RESOLVE WILL PROCEED WITH VATS PLEURODESIS 02/23/17 17:39 COMFORTABLE/VITAL SIGNS STABLE/AFEBRILE/POSITIVE AIR LEAK/CHEST X-RAY SHOWS FAILED RE-EXPANSION OF THE LUNG BUT NO EFFUSION/PATH PENDING 02/27/17 20:49 CXR STABLE OFF SUCTION/ COMFORTABLE/ NO AIR LEAK/ DRAINAGE DECREASED/ WOUND OK/ HOPEFULLY HOME THIS 03/03/17 11:23 COMFORTABLE/ AFEBRILE/ WOUNDS OK/ TINY INTERMITTENT AIRLEAK/ CXR STABLE/ MINIMAL DRAINAGE/ HOME IN AM ON HEIMLICH VALVE Objective: Vital Signs Temp Pulse Resp BP Pulse Ox 36.8 C 96 20 149/68 H 93 03/03/17 08:00 03/03/17 08:00 03/03/17 08:00 03/03/17 08:00 03/03/17 08:00 Laboratory Results 02/24/17 04:50 02/24/17 04:50 03/02/17 03/03/17 03/04/17 05:59 05:59 05:59 Intake Total 980 1570 Output Total 0020 1600 Balance -1690 -30 ICD10 Worksheet Patient Problems: Problems Problem Status Onset C. difficile colitis Acute 12/30/14
[2017-03-03] MEDS: ATORVASTATIN CALCIUM 10 MG TAB PO SCH (20:57)
[2017-03-03] MEDS: PATCH REMOVAL 1 EA PATCH TD SCH (20:59)
[2017-03-04] MEDS: IBUPROFEN 600 MG TAB PO SCH ×3 (00:14→17:08)
[2017-03-04] MEDS: ACETAMINOPHEN 325 MG TAB PO PRN ×2 (01:12→15:27)
[2017-03-04] MEDS: CALCIUM CARBONATE 500 MG TAB PO SCH ×2 (07:25→21:12)
[2017-03-04] MEDS: OMEGA-3 FATTY ACIDS 1,000 MG CAP PO SCH ×2 (07:25→21:12)
[2017-03-04] MEDS: DOCUSATE SODIUM 100 MG CAP PO SCH ×2 (07:25→21:12)
[2017-03-04] MEDS: ASCORBIC ACID 500 MG TAB PO SCH ×2 (07:26→21:13)
[2017-03-04] MEDS: VITAMIN B COMPLEX 1 EA CAP/TAB PO SCH (07:26)
[2017-03-04] MEDS: PANTOPRAZOLE SODIUM 40 MG TAB PO SCH (07:27)
[2017-03-04] MEDS: SENNOSIDES/DOCUSATE SODIUM TAB PO SCH ×2 (07:28→21:18)
[2017-03-04] MEDS: LIDOCAINE 5% 1 EA PATCH TD SCH (07:32)
[2017-03-04] MEDS ORDERED: NS 500 ML IV ONE (08:21)
[2017-03-04] MEDS: HYDROmorphONE/DILAUDID 1 MG/ML SYR IVP PRN (08:32)
[2017-03-04] MEDS: oxyCODONE IR 5 MG TAB PO PRN ×4 (08:48→21:13)
--- NOTE | 2017-03-04 09:01 | CPEKG ---
Heart Rate: 105 RR Interval: 571 P-R Interval: 148 QRSD Interval: 74 QT Interval: 344 QTC Interval: 455 P [place]: 51 QRS [place]: 41 T Wave [place]: 21 EKG Severity - OTHERWISE NORMAL ECG - EKG Impression: SINUS TACHYCARDIA Electronically Signed By: Chi Trent 04-Mar-2017 21:03:02
--- NOTE | 2017-03-04 10:33 | SOAPPROG ---
SOAP Progress Note Assessment/Plan: Assessment: 72 yo female s/p RLL resection, readmitted with right PTX and pleural effusion after returning home to altitude. Now s/p right VATS with thoracotomy, partial lobectomy, decortication, oversew of pleural leak. Tachycardic in 100-126bpm today with fever Tmax 38.4C. EKG showing sinus tach. Pathology report states reactive fibrosis with no malignancy identified. CXR stable compared to CXR performed yesterday. NS bolus Continue pain control. PO oxycodone to not exceed Tylenol limits. Bowel reg for constipation Continue VTE ppx today S: Patient feeling ok today, complaining of subjective fevers and chills. Attempting to get out of bed. Denies SOB, N/V/D/C. O: NAD, febrile to Tmax 38.4C MMM No air leak No increased WOB. Abd soft, nondistended BS present Objective: Vital Signs Temp Pulse Resp BP Pulse Ox 36.9 C 103 H 20 118/75 97 03/04/17 09:18 03/04/17 09:18 03/04/17 07:46 03/04/17 07:46 03/04/17 07:46 Laboratory Results 02/24/17 04:50 02/24/17 04:50 03/03/17 03/04/17 03/05/17 05:59 05:59 05:59 Intake Total 1570 850 175 Output Total 1600 1999 Balance -30 -1150 175 ICD10 Worksheet Patient Problems: Problems Problem Status Onset C. difficile colitis Acute 12/30/14
[2017-03-04 17:16] LABS: ALANINE AMINOTRANSFERASE 22 IU/L (9-52); ALBUMIN 3.1 g/dL (3.5-5.0); ALKALINE PHOSPHATASE 87 IU/L (38-126); ANION GAP 9 mEq/L (8-16); ASPARTATE AMINOTRANSFERASE 17 IU/L (14-46); BILIRUBIN,TOTAL 0.5 mg/dL (0.1-1.4); CALCIUM 9.6 mg/dL (8.5-10.4); CARBON DIOXIDE 25 mEq/l (22-31); CHLORIDE 101 mEq/L (97-110); CREATININE 0.5 mg/dL (0.6-1.0); GLOMERULAR FILTRATION RATE > 60; GLUCOSE 109 mg/dL (70-100); POTASSIUM 3.9 mEq/L (3.5-5.2); SODIUM 135 mEq/L (134-144); TOTAL PROTEIN 5.5 g/dL (6.3-8.2)
[2017-03-04] MEDS: ERTAPENEM 1 GM in NS 100 ML IV SCH (18:14)
[2017-03-04 18:20] LABS: ADD DIFF? YES; ADD MORPH? NO; ATYPICAL LYMPHOCYTE FLAG 0 (0-99); FRAGMENT RBC FLAG 0 (0-99); HEMATOCRIT 30.8 % (38.0-47.0); LEFT SHIFT FLG 20 (0-99); LIPEMIA HEMOLYSIS FLAG 80 (0-99); MEAN CELL HEMOGLOBIN 31.3 pg (27.9-34.1); MEAN CELL HEMOGLOBIN CONCENTR. 32.5 g/dL (32.4-36.7); MEAN CELL VOLUME 96.3 fL (81.5-99.8); MEAN PLATELET VOLUME 9.7 fL (8.7-11.7); PLATELET CLUMPS FLAG 10 (0-99); PLATELET COUNT 457 10^3/uL (150-400); RED CELL DISTRIBUTION WIDTH 13.2 % (11.5-15.2)
[2017-03-04 18:55] LABS: PLATELET ESTIMATE INCREASED (ADEQ)
[2017-03-04 18:58] LABS: ADD SCAN? YES
[2017-03-04 18:59] LABS: SCAN POSITIVE
[2017-03-04] MEDS: ATORVASTATIN CALCIUM 10 MG TAB PO SCH (21:13)
[2017-03-04] MEDS: PATCH REMOVAL 1 EA PATCH TD SCH (21:20)
[2017-03-05] MEDS: IBUPROFEN 600 MG TAB PO SCH ×3 (00:10→15:59)
[2017-03-05] MEDS: oxyCODONE IR 5 MG TAB PO PRN ×5 (03:28→22:42)
[2017-03-05] MEDS: ASCORBIC ACID 500 MG TAB PO SCH ×2 (09:16→22:25)
[2017-03-05] MEDS: CALCIUM CARBONATE 500 MG TAB PO SCH ×2 (09:18→21:51)
[2017-03-05] MEDS: DOCUSATE SODIUM 100 MG CAP PO SCH ×2 (09:19→22:25)
[2017-03-05] MEDS: OMEGA-3 FATTY ACIDS 1,000 MG CAP PO SCH ×2 (09:20→21:51)
[2017-03-05] MEDS: PANTOPRAZOLE SODIUM 40 MG TAB PO SCH (09:21)
[2017-03-05] MEDS: SENNOSIDES/DOCUSATE SODIUM TAB PO SCH ×2 (09:22→21:52)
[2017-03-05] MEDS: VITAMIN B COMPLEX 1 EA CAP/TAB PO SCH (09:26)
[2017-03-05] MEDS: LIDOCAINE 5% 1 EA PATCH TD SCH (09:28)
--- NOTE | 2017-03-05 10:02 | SOAPPROG ---
SOAP Progress Note Assessment/Plan: Assessment: 72 yo female s/p RLL resection, readmitted with right PTX and pleural effusion after returning home to altitude. Now s/p right VATS with thoracotomy, partial lobectomy, decortication, oversew of pleural leak. Evidence of infection with tachycardia in 100-126bpm with fever Tmax 38.4C yesterday. Vital signs are within normal limits today. Micro 2+ WBC and 4+ GPC from pleural source. Culture pending. CXR stable compared to CXR performed earlier this morning. EKG showing sinus tach. Pathology report states reactive fibrosis with no malignancy identified. Cont Invanz abx Awaiting cultures and sensitivities. Dressing change IVF Continue pain control. PO oxycodone to not exceed Tylenol limits. Bowel reg for constipation Continue VTE ppx S: Patient feeling better today, complaining of subjective fevers and chills overnight. States that she is in need of pain medication. Wishes to take a shower and advised that she may do so with the Heimlich valve sealed. Denies SOB, N/V/D/C. O: Afebrile, NAD MMM No air leak No increased WOB. Abd soft, nondistended. BS present [place] over right thorocotomy incision intact. Minimal drainage present on Heimlich valve dressing. Objective: Vital Signs Temp Pulse Resp BP Pulse Ox 36.7 C 90 14 101/83 H 100 03/05/17 07:44 03/05/17 07:44 03/05/17 07:44 03/05/17 07:44 03/05/17 07:44 Microbiology 03/04/17 16:19 Gram Stain - Final Pleural Fluid - Aspirate Laboratory Results 03/04/17 18:15 03/04/17 16:10 03/04/17 03/05/17 03/06/17 05:59 05:59 05:59 Intake Total 850 1325 Output Total 1999 1200 Balance -1150 125 ICD10 Worksheet Patient Problems: Problems Problem Status Onset C. difficile colitis Acute 12/30/14
[2017-03-05 10:33] LABS: ADD DIFF? YES; ADD MORPH? NO; ADD SCAN? NO; ATYPICAL LYMPHOCYTE FLAG 0 (0-99); FRAGMENT RBC FLAG 0 (0-99); HEMATOCRIT 31.6 % (38.0-47.0); HEMOGLOBIN 10.3 g/dL (12.6-16.3); LEFT SHIFT FLG 10 (0-99); LIPEMIA HEMOLYSIS FLAG 80 (0-99); MEAN CELL HEMOGLOBIN 31.3 pg (27.9-34.1); MEAN CELL HEMOGLOBIN CONCENTR. 32.6 g/dL (32.4-36.7); MEAN PLATELET VOLUME 9.7 fL (8.7-11.7); PLATELET CLUMPS FLAG 0 (0-99); PLATELET COUNT 481 10^3/uL (150-400); RED BLOOD CELL COUNT 3.29 10^6/uL (4.18-5.33); RED CELL DISTRIBUTION WIDTH 13.2 % (11.5-15.2)
[2017-03-05] MEDS: ERTAPENEM 1 GM in NS 100 ML IV SCH (11:32)
[2017-03-05 13:13] LABS: PLATELET ESTIMATE INCREASED (ADEQ)
[2017-03-05 13:14] LABS: POLYCHROMASIA 1+
[2017-03-05] MEDS: ATORVASTATIN CALCIUM 10 MG TAB PO SCH (21:51)
[2017-03-05] MEDS: PATCH REMOVAL 1 EA PATCH TD SCH (21:55)
[2017-03-06] MEDS: IBUPROFEN 600 MG TAB PO SCH ×4 (01:09→23:47)
[2017-03-06] MEDS: ACETAMINOPHEN 325 MG TAB PO PRN (05:41)
[2017-03-06] MEDS: oxyCODONE IR 5 MG TAB PO PRN (06:32)
[2017-03-06] MEDS: VITAMIN B COMPLEX 1 EA CAP/TAB PO SCH (08:39)
[2017-03-06] MEDS: DOCUSATE SODIUM 100 MG CAP PO SCH ×2 (08:39→20:18)
[2017-03-06] MEDS: SENNOSIDES/DOCUSATE SODIUM TAB PO SCH ×2 (08:39→20:19)
[2017-03-06] MEDS: LIDOCAINE 5% 1 EA PATCH TD SCH (08:39)
[2017-03-06] MEDS: ASCORBIC ACID 500 MG TAB PO SCH ×2 (08:39→20:17)
[2017-03-06] MEDS: OMEGA-3 FATTY ACIDS 1,000 MG CAP PO SCH ×2 (08:40→20:19)
[2017-03-06] MEDS: CALCIUM CARBONATE 500 MG TAB PO SCH ×2 (08:40→20:18)
[2017-03-06] MEDS: PANTOPRAZOLE SODIUM 40 MG TAB PO SCH (08:40)
[2017-03-06] MEDS: ERTAPENEM 1 GM in NS 100 ML IV SCH (08:40)
[2017-03-06] MEDS: OXYCODONE/APAP 5/325 TAB PO PRN ×2 (10:12→18:49)
--- NOTE | 2017-03-06 11:53 | SOAPPROG ---
SOAP Progress Note Assessment/Plan: Assessment: 72 yo female s/p RLL resection, readmitted with right PTX and pleural effusion after returning home to [place]. Now s/p right VATS with thoracotomy, partial lobectomy, decortication, oversew of pleural leak. Evidence of infection, unknown source at this time. CT chest demonstrates moderate right hemopneumothorax. Inferior to remaining lung and indwelling chest tube is a complex and gas collection, possibly a loculated effusion. Urine culture with Klebsiella. Sensitive to Invanz. Pleural source growing enterococcus. CXR stable compared to CXR performed earlier this morning. EKG showing sinus tach. Pathology report states reactive fibrosis with no malignancy identified. Heimlich valve back to suction. NPO for possible surgery. Cont Invanz abx Awaiting cultures and sensitivities. Monitor vital signs closely. Continue pain control. PO oxycodone to not exceed Tylenol limits. Continue VTE ppx S: Patient feeling better today. Episodes of asymptomatic hypotension yesterday afternoon without concurrent fevers. Katie had one recorded fever of 38C this behavioral health worker. Denies SOB, N/V/D/C. O: Afebrile, NAD MMM Heimlich valve put to Pleuravac/suction. No air leak. No increased WOB. Abd soft, nondistended. BS present [place] over right thorocotomy incision intact. Objective: Vital Signs Temp Pulse Resp BP Pulse Ox 36.8 C 94 20 101/53 L 91 L 03/06/17 08:00 03/06/17 08:00 03/06/17 08:00 03/06/17 08:00 03/06/17 08:00 Microbiology 03/04/17 16:15 Urine Culture - Final Urine,Clean Catch Klebsiella Pneumoniae Ssp Pneu 03/04/17 16:19 Gram Stain - Final Pleural Fluid - Aspirate 03/04/17 17:00 Mycobacterial Smear (ESPERANZA) - Final Pleural Fluid - Aspirate Laboratory Results 03/05/17 10:24 03/04/17 16:10 03/05/17 03/06/17 03/07/17 05:59 05:59 05:59 Intake Total 1325 300 Output Total 1200 675 Balance 125 -375 ICD10 Worksheet Patient Problems: Problems Problem Status Onset C. difficile colitis Acute 12/30/14
[2017-03-06] MEDS: D5W 1/2 NS W/ 20 KCl/L 1,000 ML IV SCH ×2 (16:07→16:08)
[2017-03-06] MEDS: ATORVASTATIN CALCIUM 10 MG TAB PO SCH (20:18)
[2017-03-06] MEDS: PATCH REMOVAL 1 EA PATCH TD SCH (20:23)
--- NOTE | 2017-03-06 20:35 | SOAPPROG ---
SOAP Progress Note Assessment/Plan: Assessment: COMFORTABLE IN DOING WELL BUT LUNG STILL NOT COMPLETELY EXPANDED/NO AIR LEAK ON CHEST TUBE DRAINAGE/DRAINAGE VOLUME DECREASED MAY NEED ADDITIONAL CHEST TUBE IF NOT IMPROVED Plan: CHEST X-RAY IN THE A.M. 01/29/17 19:01 01/30/17 08:57 COMFORTABLE/ VS STABLE/ NO AIR LEAK BUT STILL NOT FULLY EXPANDED/ WILL PLACE APICAL PNEUMOCATH TODAY 02/06/17 16:05 Breath sounds equal but still small air leak/patient starting to get frustrated/ no obvious leak in the system but will change Pleur-Evac 02/11/17 09:04 COMFORTABLE/ WOUND OK/ STILL WITH TINY AIRLEAK/ CXR STABLE WITH 15% PNEUMO/ ? SLIGHTLY SMALLER 02/13/17 15:08 PATIENT COMFORTABLE AND BOARD/WANTS TO GO HOME/NO AIR LEAK TODAY FOR THE 1ST TIME/DRAINAGE MINIMAL/ PLAN CHEST X-RAY IN THE MORNING AND DC CHEST TUBE IF NO AIR LEAK EVEN IF NOT FULLY EXPANDED/MAY NEED HOME OXYGEN TO GO BACK TO [facility] AT [facility] 02/17/17 20:59 FOLLOW-UP CHEST X-RAYS AFTER REMOVAL OF CHEST TUBE SHOWED ENLARGING PNEUMOTHORAX /RISKS AND OPTIONS FULLY DISCUSSED/WILL PROCEED WITH PLACING NEW APICAL CHEST TUBE 02/18/17 15:16 LUNG REASONABLY WELL EXPANDED ON CHEST X-RAY BUT STILL WITH A SMALL AIR LEAK/ RISKS AND OPTIONS FULLY DISCUSSED INCLUDING POSSIBILITY OF SURGERY TO CORRECT THE AIR LEAK/ WE WILL CONTINUE TO WORK ON PLEUR-EVAC SUCTION DRAINAGE 02/19/17 14:27 CXR IMPROVING/ MINIMAL AIR LEAK/ WILL WATCH OVER WEEKEND/ IF LEAK FAILS TO RESOLVE WILL PROCEED WITH VATS PLEURODESIS 02/23/17 17:39 COMFORTABLE/VITAL SIGNS STABLE/AFEBRILE/POSITIVE AIR LEAK/CHEST X-RAY SHOWS FAILED RE-EXPANSION OF THE LUNG BUT NO EFFUSION/PATH PENDING 02/27/17 20:49 CXR STABLE OFF SUCTION/ COMFORTABLE/ NO AIR LEAK/ DRAINAGE DECREASED/ WOUND OK/ HOPEFULLY HOME THIS 03/03/17 11:23 COMFORTABLE/ AFEBRILE/ WOUNDS OK/ TINY INTERMITTENT AIRLEAK/ CXR STABLE/ MINIMAL DRAINAGE/ HOME IN AM ON HEIMLICH VALVE 03/06/17 20:33 CHEST X-RAY IS STABLE WITH OR WITHOUT SUCTION / CHEST TUBE DRAINAGE IS MINIMAL / PRESENTLY NO AIR LEAK / CURRENTLY NO TEMPERATURE ELEVATION / I CT SHOWS PERSISTENT APICAL LARGE PNEUMOTHORAX AND WE HAVE BEEN ABLE TO RE-EXPAND THE LUNG TO FILL THAT SPACE DESPITE MULTIPLE CHEST TUBES. I HAVE RESTARTED CHEST TUBE SECTION AND RESTARTED THE PATIENT'S DIET. WE WILL CONSIDER AT IR PLACEMENT OF A APICAL CHEST TUBE BUT THAT DID NOT WORK LAST TIME Objective: Vital Signs Temp Pulse Resp BP Pulse Ox 38.3 C H 88 16 106/62 95 03/06/17 19:44 03/06/17 19:44 03/06/17 19:44 03/06/17 19:44 03/06/17 19:44 Microbiology 03/04/17 16:19 Gram Stain - Final Pleural Fluid - Aspirate Anaerobic Culture - Final Enterococcus Faecalis 03/04/17 16:15 Urine Culture - Final Urine,Clean Catch Klebsiella Pneumoniae Ssp Pneu Laboratory Results 03/05/17 10:24 03/04/17 16:10 03/05/17 03/06/17 03/07/17 05:59 05:59 05:59 Intake Total 1325 300 450 Output Total 9565 135 7469 Balance 278 -471 -0296 ICD10 Worksheet Patient Problems: Problems Problem Status Onset C. difficile colitis Acute 12/30/14
[2017-03-07] MEDS: OXYCODONE/APAP 5/325 TAB PO PRN ×3 (01:16→22:04)
[2017-03-07] MEDS: OMEGA-3 FATTY ACIDS 1,000 MG CAP PO SCH ×2 (08:17→22:03)
[2017-03-07] MEDS: CALCIUM CARBONATE 500 MG TAB PO SCH ×2 (08:18→22:03)
[2017-03-07] MEDS: VITAMIN B COMPLEX 1 EA CAP/TAB PO SCH (08:18)
[2017-03-07] MEDS: PANTOPRAZOLE SODIUM 40 MG TAB PO SCH (08:18)
[2017-03-07] MEDS: ASCORBIC ACID 500 MG TAB PO SCH ×2 (08:18→22:02)
[2017-03-07] MEDS: IBUPROFEN 600 MG TAB PO SCH ×2 (08:18→22:03)
[2017-03-07] MEDS: LIDOCAINE 5% 1 EA PATCH TD SCH (08:18)
[2017-03-07] MEDS: SENNOSIDES/DOCUSATE SODIUM TAB PO SCH ×2 (08:18→22:03)
[2017-03-07] MEDS: DOCUSATE SODIUM 100 MG CAP PO SCH ×2 (08:34→22:03)
[2017-03-07] MEDS: ERTAPENEM 1 GM in NS 100 ML IV SCH (08:39)
[2017-03-07 12:55] LABS: % IMMATURE GRANULYOCYTES 1.1 % (0.0-1.1); ADD DIFF? NO; ADD MORPH? NO; ADD SCAN? NO; ATYPICAL LYMPHOCYTE FLAG 10 (0-99); FRAGMENT RBC FLAG 0 (0-99); HEMATOCRIT 28.3 % (38.0-47.0); HEMOGLOBIN 9.2 g/dL (12.6-16.3); LEFT SHIFT FLG 0 (0-99); LIPEMIA HEMOLYSIS FLAG 80 (0-99); MEAN CELL HEMOGLOBIN 31.2 pg (27.9-34.1); MEAN CELL HEMOGLOBIN CONCENTR. 32.5 g/dL (32.4-36.7); MEAN CELL VOLUME 95.9 fL (81.5-99.8); MEAN PLATELET VOLUME 9.4 fL (8.7-11.7); PLATELET CLUMPS FLAG 0 (0-99); PLATELET COUNT 476 10^3/uL (150-400); RED BLOOD CELL COUNT 2.95 10^6/uL (4.18-5.33); RED CELL DISTRIBUTION WIDTH 13.2 % (11.5-15.2)
[2017-03-07] MEDS ORDERED: ALTEPLASE 2 MG VIAL IVP PRN (13:43)
[2017-03-07] MEDS ORDERED: HYDROmorphONE/DILAUDID 1 MG/ML SYR IVP PRN (14:23)
[2017-03-07] MEDS ORDERED: MIDAZOLAM 2 MG/2 ML VIAL ONE (14:42)
[2017-03-07] MEDS ORDERED: fentaNYL 100 MCG/2 ML INJ ONE (14:42)
--- NOTE | 2017-03-07 16:04 | GCON ---
[f rep st] CONSULTATION INFECTIOUS DISEASE CONSULTATION DATE OF CONSULTATION: 03/07/2017 REFERRING PHYSICIAN: Megan Velasquez MD HISTORY: obtained from patient, and chart REASON FOR CONSULTATION: Fever and leukocytosis. HISTORY OF PRESENT ILLNESS: This is a 72-year-old woman, whose history dates back to 01/15/2017 in which patient had a right upper lobe nodule, diaphragmatic nodule, and an enlarging right lower lobe nodule and underwent a VATS with right thoracotomy, right lower lobectomy, right upper lobe wedge resection, and diaphragm biopsy who was admitted from date of surgery through 01/21. Patient was seen in surgery clinic on 01/28/2017 with complaints of shortness of breath and hypoxia. Chest x-ray revealed pneumothorax and pleural effusion. Patient underwent a right tube thoracotomy with 600 cc of serous fluid returned. Patient subsequently had a Pneumocath placement 01/30. Patient had persistent pneumothorax and air leak and, on the , underwent another right tube thoracotomy which was unsuccessful, and subsequently, on February 23, patient underwent a repeat right VATS decortication, partial lobectomy, right upper lobe resection with pleurodesis. Biopsies from initial surgery, 01/15/2017, did not review reveal malignancy in any section specifically, found to have granuloma with lymph nodes only positive for sinus histiocytosis. Pathology from 2nd surgery on the showed no malignancy as well. On February 24, patient had to have a repeat right tube thoracostomy for a recurrent right pneumothorax after a chest tube fell out. Patient had a persistent apical pneumothorax at that time. On 03/04/2017, patient developed a fever and malaise with only associated symptom of right-sided chest pain and generalized malaise. Blood cultures were taken at that time and showed no growth to date. In addition, a pleural fluid sample was taken but may have been taken from the chest tube which subsequently showed a positive Gram stain of 4+ GPCs in pairs, 4+ GPCs in chains, and culture showed 4+ pansusceptible E faecalis. On 03/04, patient was started on ertapenem 1 g IV daily. Patient has also been febrile on the and today to 39.3. At time of my exam, patient complains of right- sided pleuritic chest pain, generalized malaise, and achiness. No diarrhea. Difficult to obtain history because she feels so poorly. PAST MEDICAL HISTORY/PAST SURGICAL HISTORY: Total abdominal hysterectomy, lumbar fusion, aortic aneurysm, history of C difficile in 2015, depression, hyperlipidemia, pneumonia. ALLERGIES: Patient has an allergy to penicillin/amoxicillin. Attempted to get better history today. Appears that patient has a localized reaction at past IV sites when given penicillin. Denies throat swelling or rash. Cipro and clindamycin were associated with her episode of C difficile. MEDICATIONS: Tylenol, vitamin C; Lipitor; Dulcolax; calcium; Colace; ertapenem 1 g IV daily, started 03/04/2017; Dilaudid; Motrin; Lidoderm patch; Zofran; oxycodone; Percocet; MiraLAX; Cepacol lozenges; and vitamin B. SOCIAL HISTORY: Patient is . Lives up in [place]. Has children from a prior marriage. Former smoker. FAMILY HISTORY: Reviewed and noncontributory. REVIEW OF SYSTEMS: A complete 10-point review of systems was performed and is negative except as mentioned in the HPI. PHYSICAL EXAMINATION: VITAL SIGNS: Temperature 39.3, blood pressure 131/92, heart rate 107, saturation 96% on room air. mildly toxic-appearing woman lying in bed. No respiratory distress. HEENT: She has conjunctival pallor. Oropharynx is dry. No oral ulcerations. NECK: Supple. CARDIOVASCULAR: Tachycardic, regular rate. CHEST: Patient had decreased breath sounds to the right with crackles and right-sided chest tube with serosanguineous fluid. ABDOMEN: Soft, nontender. Slightly distended. bowel sounds present EXTREMITIES: No clubbing, cyanosis, or edema. No splinter hemorrhages or [place] lesions. NEUROLOGIC: She was diffusely weak but no focal deficits. Alert and oriented x4 but very slow to answer questions. SKIN: No rashes. : No Dial. LABORATORY: White count 17.9, 86% neutrophils, hematocrit 28, platelets of 476. Creatinine has not been obtained for 2 days, was 0.8. Blood cultures from 03/04 are no growth to date. A CT scan performed 03/04/2017 showed persistent moderate right hemopneumothorax. Right chest tube is in place. The course is inferior to the collection of the air and gas inferior to the indwelling chest tube. Remaining lung, there is a complex gas and fluid-filled collection, possibly a loculated effusion. Pleural fluid culture from 2016 shows 4+ E faecalis susceptible to ampicillin, penicillin, vancomycin, and gentamicin. Synergy screen shows susceptibility. ASSESSMENT AND PLAN: This is a 72-year-old woman, who has had a complicated surgical course related to her right chest for evaluation of possible malignancy. All pathology has been negative for malignancy to date, and now patient has fever with only localizing symptoms to the right chest wall. Concern for right-sided postoperative infection/empyema with prior cultures showing enterococcus (Note: Prior pleural fluid was pulled from the chest tube. This would make these cultures to be under question, as chest tube can become colonized with bacteria). ASSESSMENT 1. Post op R sided empyema 2. SIRS due to empyema 3. Leukocytosis likely due to empyema 4. H/o Cdiff RECOMMENDATIONS: 1. Agree with adjustment of CT, IR to place additional chest tube today and ordered studies, cell count, albumin, glucose, and cultures. 2. Broaden patient's antibiotic coverage to cover enterococcus until additional data with vancomycin 1gm IV daily. Ideally, would like to change patient to Zosyn but unable to get reliable history today regarding penicillin allergy due to patient's illness. Continue ertapenem for now. 3. Repeat blood cultures with ongoing fever, as they have not been checked for [address] a PICC line due to patient's illness and need for IV fluids as well as IV antibiotics and will likely need longer course of IV antibiotics. 5. Would start suppressive PO vancomycin in light of h/o of Cdiff time 75 minutes with greater than 50% time spent with coordination of care. case was discussed with Dr. Velasquez, Dr. Sutherland, and nursing staff to help coordinate patient's care with PICC line placement and chest tube placement. Thank you for this consultation. We will continue to follow on a daily basis. /[id number]/MODL MTDD
--- NOTE | 2017-03-07 16:22 | SOAPPROG ---
SOAP Progress Note Assessment/Plan: Assessment: s/p VATS lobectomy, prolonged airleak and recurrent pneumothorax and thoracotomy with additional resection of lung Airleak has resolved but now with fevers and hemopneumothorax which I suspect is infected I am not sure that her lung will fully expand Appreciate Dr. Marrufo seeing her and tailoring antibiotics Appreciate Dr. Sutherland placing directed chest tube to hemopneumothorax and may place additional superior PICC Resume diet Continue hospital management Plan: 01/31/17 11:40 02/01/17 08:37 02/21/17 10:56 02/22/17 11:44 02/24/17 21:02 03/07/17 16:14 Subjective: Very tired Objective: Vital Signs Temp Pulse Resp BP Pulse Ox 37.9 C 116 H 20 147/73 H 92 03/07/17 14:36 03/07/17 14:36 03/07/17 14:36 03/07/17 14:36 03/07/17 14:36 Microbiology 03/04/17 16:19 Gram Stain - Final Pleural Fluid - Aspirate Anaerobic Culture - Final Enterococcus Faecalis Laboratory Results 03/07/17 12:49 03/04/17 16:10 03/06/17 03/07/17 03/08/17 05:59 05:59 05:59 Intake Total 300 450 Output Total 675 2900 500 Balance -375 -2420 -500 Physical Exam - Physical Exam General Appearance: WD/WN, other (sleepy) EENT: PERRL/EOMI, normal ENT inspection, No scleral icterus (R), No scleral icterus (L), No hearing deficit Respiratory: other (no breath sounds R upper, decreased R lower. Clear on left. Chest tube no air leak. Serous fluid in tube) Cardiac/Chest: regular rate, rhythm Skin: normal color, warm/dry Extremities: normal range of motion Neuro/Psych: normal mood/affect ICD10 Worksheet Patient Problems: Problems Problem Status Onset C. difficile colitis Acute 12/30/14
--- NOTE | 2017-03-07 16:32 | POSTOPPROG ---
Post Op Note Date of Operation: 03/07/17 Surgeon: Nura Sutherland Anesthesia: IV Sedation Pre-op Diagnosis: Rt hemopneumothorax, loculated pleural effusion Post-op Diagnosis: Same Indication: Loculated pleural effusion, febrile w white count Procedure: Rt chest tube placement Findings: See report Inf/Abcess present in the surg proc area at time of surgery?: Yes Depth: Organ Space (Pleural space) EBL: Minimal Complications: No immediate Drains: Other (Rt 16-Fr Thal-Quick chest tube)
[2017-03-07 17:48] LABS: ALANINE AMINOTRANSFERASE 25 IU/L (9-52); ALBUMIN 2.6 g/dL (3.5-5.0); ALKALINE PHOSPHATASE 78 IU/L (38-126); ANION GAP 11 mEq/L (8-16); ASPARTATE AMINOTRANSFERASE 14 IU/L (14-46); BILIRUBIN,TOTAL 0.4 mg/dL (0.1-1.4); CALCIUM 8.6 mg/dL (8.5-10.4); CARBON DIOXIDE 25 mEq/l (22-31); CHLORIDE 100 mEq/L (97-110); CREATININE 0.4 mg/dL (0.6-1.0); GLOMERULAR FILTRATION RATE > 60; GLUCOSE 104 mg/dL (70-100); LACTATE DEHYDROGENASE 328 IU/L (313-618); POTASSIUM 3.9 mEq/L (3.5-5.2); SODIUM 136 mEq/L (134-144); TOTAL PROTEIN 5.2 g/dL (6.3-8.2)
[2017-03-07] MEDS: D5W 1/2 NS W/ 20 KCl/L 1,000 ML IV SCH (17:53)
[2017-03-07] MEDS: VANCOMYCIN HCL/NORMAL SALINE 250 ML IV SCH (17:57)
[2017-03-07] MEDS: PATCH REMOVAL 1 EA PATCH TD SCH (22:04)
[2017-03-07] MEDS: ATORVASTATIN CALCIUM 10 MG TAB PO SCH (22:04)
[2017-03-08] MEDS: IBUPROFEN 600 MG TAB PO SCH ×4 (00:42→23:13)
[2017-03-08] MEDS: OXYCODONE/APAP 5/325 TAB PO PRN ×4 (03:47→20:38)
[2017-03-08] MEDS: ERTAPENEM 1 GM in NS 100 ML IV SCH (08:16)
[2017-03-08] MEDS: PANTOPRAZOLE SODIUM 40 MG TAB PO SCH (08:17)
[2017-03-08] MEDS: ASCORBIC ACID 500 MG TAB PO SCH ×2 (08:18→20:32)
[2017-03-08] MEDS: CALCIUM CARBONATE 500 MG TAB PO SCH ×2 (08:18→20:32)
[2017-03-08] MEDS: OMEGA-3 FATTY ACIDS 1,000 MG CAP PO SCH ×2 (08:18→20:31)
[2017-03-08] MEDS: LIDOCAINE 5% 1 EA PATCH TD SCH (08:18)
[2017-03-08] MEDS: DOCUSATE SODIUM 100 MG CAP PO SCH ×2 (08:18→20:32)
[2017-03-08] MEDS: VITAMIN B COMPLEX 1 EA CAP/TAB PO SCH (08:18)
[2017-03-08] MEDS: SENNOSIDES/DOCUSATE SODIUM TAB PO SCH ×2 (08:19→20:32)
[2017-03-08 08:45] LABS: ABSOLUTE IMMATURE GRANULOCYTES 0.11 10^3/uL (0.00-0.10); ADD DIFF? NO; ADD MORPH? NO; ADD SCAN? NO; ATYPICAL LYMPHOCYTE FLAG 10 (0-99); FRAGMENT RBC FLAG 0 (0-99); HEMATOCRIT 26.2 % (38.0-47.0); HEMOGLOBIN 8.4 g/dL (12.6-16.3); LEFT SHIFT FLG 0 (0-99); LIPEMIA HEMOLYSIS FLAG 80 (0-99); MEAN CELL HEMOGLOBIN CONCENTR. 32.1 g/dL (32.4-36.7); MEAN CELL VOLUME 96.7 fL (81.5-99.8); MEAN PLATELET VOLUME 9.4 fL (8.7-11.7); PLATELET CLUMPS FLAG 10 (0-99); PLATELET COUNT 399 10^3/uL (150-400); RED BLOOD CELL COUNT 2.71 10^6/uL (4.18-5.33); RED CELL DISTRIBUTION WIDTH 13.2 % (11.5-15.2)
[2017-03-08 09:08] LABS: ALANINE AMINOTRANSFERASE 25 IU/L (9-52); ALBUMIN 2.5 g/dL (3.5-5.0); ALKALINE PHOSPHATASE 64 IU/L (38-126); ANION GAP 9 mEq/L (8-16); ASPARTATE AMINOTRANSFERASE 24 IU/L (14-46); BILIRUBIN,TOTAL 0.4 mg/dL (0.1-1.4); CALCIUM 8.4 mg/dL (8.5-10.4); CARBON DIOXIDE 26 mEq/l (22-31); CHLORIDE 104 mEq/L (97-110); CREATININE 0.4 mg/dL (0.6-1.0); GLOMERULAR FILTRATION RATE > 60; GLUCOSE 88 mg/dL (70-100); SODIUM 139 mEq/L (134-144)
--- NOTE | 2017-03-08 09:44 | PCMIDPN ---
Assessment/Plan: #Postoperative empyema with prior cultures showing enterococcus ( drawn from chest tube) and Gram stain from yesterday with placement of new chest tube showing GPCs On gram stain. Patient much improved as compared to yesterday, mentating normally today. -- likely DC ertapenem once cultures negative at 48 hours for other pathogens -- vancomycin dosed for creatinine clearance at 1 g IV daily # history of severe C diff -- will start suppressive oral vancomycin # allergy to penicillin is chest tightness, but did not require medical care therefore could try rechallenge if deemed appropriate medications Ertapenem 1 g IV daily, # 5 vancomycin 1 g IV daily, # 2 microbiology 03/04 pleural fluid cultures 4+ kaba susceptible Enterococcus 03/04 blood cultures ( 2) NGTD 03/07 blood cultures (2) pending 03/08 pleural fluid 1+ GPCs Subjective: patient feeling much improved with much less left sided pleuritic chest pain no diarrhea currently Objective: Vital Signs Temp Pulse Resp BP Pulse Ox 36.4 C 72 16 112/63 97 03/08/17 08:00 03/08/17 08:00 03/08/17 08:00 03/08/17 08:00 03/08/17 08:00 Microbiology 03/07/17 16:13 Gram Stain - Final Pleural Fluid - Aspirate Laboratory Results 03/08/17 08:30 03/08/17 08:30 03/07/17 03/08/17 03/09/17 05:59 05:59 05:59 Intake Total 450 1500 Output Total 2900 2146 Balance -2450 -646 Laboratory Tests 03/07/17 16:13 Pleural WBC 13244 Pleural RBC 97491 Pleural Neutrophils 99 Pleural Albumin 1.6 Pleural Glucose < 20 L - Physical Exam General Appearance: alert, no apparent distress EENT: pale conjunctiva, No scleral icterus, No thrush Respiratory: crackles ( left), other ( left-sided chest tube with serosanguineous drainage), No accessory muscle use Cardiac/Chest: regular rate, rhythm Extremities: No pedal edema Neuro/Psych: alert, normal mood/affect, oriented x 3 - Line/s LUE PICC Lines: No drainage, No erythema - Time Spent With Patient Time Spent with Patient: greater than 35 minutes Time Spent with Patient: Greater than 35 minutes spent on this patients care, greater than 50% of time spent counseling, educating, and coordinating care regarding the above mentioned plan. ICD10 Worksheet Patient Problems: Problems Problem Status Onset C. difficile colitis Acute 12/30/14
--- NOTE | 2017-03-08 10:40 | SOAPPROG ---
SOAP Progress Note Assessment/Plan: Assessment: s/p VATS lobectomy, prolonged airleak and recurrent pneumothorax and thoracotomy with additional resection of lung Airleak has resolved S/P posterior chest tube. cultures pending Much improved today Appreciate Dr. Marrufo seeing her and tailoring antibiotics Appreciate Dr. Sutherland placing directed chest tube to hemopneumothorax May try appical tube to see if lung will expand further PICC Resume diet Continue hospital management Plan: 01/31/17 11:40 02/01/17 08:37 02/21/17 10:56 02/22/17 11:44 02/24/17 21:02 03/07/17 16:14 03/08/17 10:38 Subjective: Feeling well today. In good spirits. Does not remember seeing me yesterday Objective: Vital Signs Temp Pulse Resp BP Pulse Ox 36.4 C 72 16 112/63 97 03/08/17 08:00 03/08/17 08:00 03/08/17 08:00 03/08/17 08:00 03/08/17 08:00 Microbiology 03/07/17 16:13 Gram Stain - Final Pleural Fluid - Aspirate Laboratory Results 03/08/17 08:30 03/08/17 08:30 03/07/17 03/08/17 03/09/17 05:59 05:59 05:59 Intake Total 450 1500 Output Total 2900 2146 Balance -2450 -646 Physical Exam - Physical Exam General Appearance: alert, no apparent distress EENT: PERRL/EOMI, No scleral icterus (R), No scleral icterus (L), No hearing deficit Respiratory: other (minimal breath sounds on right upper lobe. Clear on left. Chest tube with serosang fluid) Cardiac/Chest: regular rate, rhythm ICD10 Worksheet Patient Problems: Problems Problem Status Onset C. difficile colitis Acute 12/30/14
[2017-03-08] MEDS: VANCOMYCIN 125 MG/2.5 ML UDL PO SCH ×2 (11:00→20:32)
[2017-03-08] MEDS: VANCOMYCIN HCL/NORMAL SALINE 250 ML IV SCH (13:36)
[2017-03-08] MEDS: ATORVASTATIN CALCIUM 10 MG TAB PO SCH (20:32)
[2017-03-08] MEDS: PATCH REMOVAL 1 EA PATCH TD SCH (20:40)
[2017-03-08] MEDS: D5W 1/2 NS W/ 20 KCl/L 1,000 ML IV SCH (23:12)
[2017-03-09] MEDS: OXYCODONE/APAP 5/325 TAB PO PRN ×4 (02:23→22:34)
[2017-03-09] MEDS: D5W 1/2 NS W/ 20 KCl/L 1,000 ML IV SCH (04:51)
[2017-03-09 05:04] LABS: % IMMATURE GRANULYOCYTES 1.3 % (0.0-1.1); ABSOLUTE IMMATURE GRANULOCYTES 0.12 10^3/uL (0.00-0.10); ADD DIFF? NO; ADD MORPH? NO; ADD SCAN? NO; ATYPICAL LYMPHOCYTE FLAG 20 (0-99); FRAGMENT RBC FLAG 0 (0-99); HEMATOCRIT 28.1 % (38.0-47.0); HEMOGLOBIN 8.8 g/dL (12.6-16.3); LEFT SHIFT FLG 10 (0-99); LIPEMIA HEMOLYSIS FLAG 80 (0-99); MEAN CELL HEMOGLOBIN 30.4 pg (27.9-34.1); MEAN CELL HEMOGLOBIN CONCENTR. 31.3 g/dL (32.4-36.7); MEAN CELL VOLUME 97.2 fL (81.5-99.8); MEAN PLATELET VOLUME 9.7 fL (8.7-11.7); PLATELET CLUMPS FLAG 10 (0-99); PLATELET COUNT 424 10^3/uL (150-400); RED BLOOD CELL COUNT 2.89 10^6/uL (4.18-5.33); RED CELL DISTRIBUTION WIDTH 13.2 % (11.5-15.2)
[2017-03-09 05:12] LABS: ANION GAP 7 mEq/L (8-16); CALCIUM 9.2 mg/dL (8.5-10.4); CARBON DIOXIDE 25 mEq/l (22-31); CHLORIDE 107 mEq/L (97-110); CREATININE 0.5 mg/dL (0.6-1.0); GLOMERULAR FILTRATION RATE > 60; GLUCOSE 97 mg/dL (70-100); POTASSIUM 4.7 mEq/L (3.5-5.2); SODIUM 139 mEq/L (134-144)
[2017-03-09] MEDS: VANCOMYCIN 125 MG/2.5 ML UDL PO SCH ×2 (09:00→20:27)
[2017-03-09] MEDS: ASCORBIC ACID 500 MG TAB PO SCH ×2 (09:01→20:27)
[2017-03-09] MEDS: SENNOSIDES/DOCUSATE SODIUM TAB PO SCH ×2 (09:01→20:27)
[2017-03-09] MEDS: OMEGA-3 FATTY ACIDS 1,000 MG CAP PO SCH ×2 (09:02→20:27)
[2017-03-09] MEDS: DOCUSATE SODIUM 100 MG CAP PO SCH ×2 (09:02→20:27)
[2017-03-09] MEDS: CALCIUM CARBONATE 500 MG TAB PO SCH ×2 (09:02→20:27)
[2017-03-09] MEDS: IBUPROFEN 600 MG TAB PO SCH ×3 (09:02→23:59)
[2017-03-09] MEDS: VITAMIN B COMPLEX 1 EA CAP/TAB PO SCH (09:03)
[2017-03-09] MEDS: LIDOCAINE 5% 1 EA PATCH TD SCH (09:03)
[2017-03-09] MEDS: PANTOPRAZOLE SODIUM 40 MG TAB PO SCH (09:03)
--- NOTE | 2017-03-09 10:12 | SOAPPROG ---
SOAP Progress Note Assessment/Plan: Assessment: 72 yo female s/p RLL resection, readmitted with right PTX and pleural effusion after [place]. Now s/p right VATS with thoracotomy, partial lobectomy, decortication, oversew of pleural leak. Airleak resolved Apical chest tube with IR today to see if lung will expand further. Blood cultures negative for preliminary growth. PICC line in place Appreciate ID for antibiotic recs Appreciate hospitalists Continue pain control S: States she feels like she is improving, but feels weak and tired today. Denies SOB, N/V/D/C. O: Afebrile, NAD MMM Chest tube to Pleuravac/suction. No air leak. Draining serosang fluid Diminished breath sounds on right with crackles. CTA on left. No increased WOB. Objective: Vital Signs Temp Pulse Resp BP Pulse Ox 36.4 C 75 12 93/60 L 98 03/09/17 08:00 03/09/17 08:00 03/09/17 08:00 03/09/17 08:00 03/09/17 08:00 Microbiology 03/07/17 16:13 Gram Stain - Final Pleural Fluid - Aspirate Laboratory Results 03/09/17 04:45 03/09/17 04:45 03/08/17 03/09/17 03/10/17 05:59 05:59 05:59 Intake Total 1500 1750 Output Total 2146 1400 36 Balance -646 350 -36 ICD10 Worksheet Patient Problems: Problems Problem Status Onset C. difficile colitis Acute 12/30/14
[2017-03-09] MEDS ORDERED: fentaNYL 100 MCG/2 ML INJ ONE (13:36)
--- NOTE | 2017-03-09 14:16 | PCMIDPN ---
Assessment/Plan: Assessment: Postoperative empyema secondary to Enterococcus faecalis. Status post chest tube placement. Covering with vancomycin. No significant toxicities at this point. Will continue at current dosing schedule. History of severe C diff colitis. Will continue vancomycin 125 mg p.o. twice daily. Do not regard IV vancomycin as a significant risk however patient has received broad-spectrum Gram-negative and anaerobe coverage during this stay. Plan: 1. Continue vancomycin 1 g IV Q 24. 2. Continue p.o. vancomycin for C diff prophylaxis. 3. Follow clinical course. Subjective: Patient is in her procedure currently for a 2nd chest tube to be placed in the apical position. Spoke with performing physician. No new issues. Objective: Vancomycin # 3 Vital Signs Temp Pulse Resp BP Pulse Ox 36.5 C 88 16 121/77 H 98 03/09/17 12:00 03/09/17 12:00 03/09/17 12:00 03/09/17 12:00 03/09/17 12:00 Microbiology 03/04/17 16:19 Gram Stain - Final Pleural Fluid - Aspirate 03/07/17 16:13 Gram Stain - Final Pleural Fluid - Aspirate Laboratory Results 03/09/17 04:45 03/09/17 04:45 03/08/17 03/09/17 03/10/17 05:59 05:59 05:59 Intake Total 1500 1750 240 Output Total 2146 1400 636 Balance -646 350 -396 - Physical Exam General Appearance: WD/WN, non-toxic Skin: normal color, warm/dry, No rash ICD10 Worksheet Patient Problems: Problems Problem Status Onset C. difficile colitis Acute 12/30/14
[2017-03-09] MEDS: VANCOMYCIN HCL/NORMAL SALINE 250 ML IV SCH (15:08)
[2017-03-09] MEDS: ATORVASTATIN CALCIUM 10 MG TAB PO SCH (20:27)
[2017-03-09] MEDS: PATCH REMOVAL 1 EA PATCH TD SCH (20:31)
[2017-03-09] MEDS: CEPACOL LOZENGE PO PRN (20:39)
[2017-03-10] MEDS: oxyCODONE IR 5 MG TAB PO PRN
[2017-03-10] MEDS: D5W 1/2 NS W/ 20 KCl/L 1,000 ML IV SCH (02:34)
[2017-03-10] MEDS: OXYCODONE/APAP 5/325 TAB PO PRN ×4 (07:45→23:36)
[2017-03-10] MEDS ORDERED: ALBUTEROL 60 PUFFS/8 GM MDI IH PRN (09:07)
--- NOTE | 2017-03-10 09:19 | SOAPPROG ---
SOAP Progress Note Assessment/Plan: Assessment: 72 yo female s/p RLL resection, readmitted with right PTX and pleural effusion after [place] home to [place]. Now s/p right VATS with thoracotomy, partial lobectomy, decortication, oversew of pleural leak. Airleak resolved Apical chest tube placed yesterday. Off suction today. Heimlich in place draining serosang fluid. Awaiting results from today's CXR. If lung reinflated, possibly remove chest tube tomorrow. Blood cultures negative for preliminary growth. PICC line in place Appreciate ID for antibiotic recs Appreciate hospitalists Continue pain control Albuterol PRN for wheezing S: States she feels like she is improving, but feels weak and tired today. Denies SOB, N/V/D/C. O: Afebrile, NAD MMM Chest tube to Pleuravac/suction. No air leak. Draining serosang fluid Diminished breath sounds on right. Wheezing bilaterally. No increased WOB. 03/10/17 09:20 Objective: Vital Signs Temp Pulse Resp BP Pulse Ox 36.8 C 87 18 140/81 H 96 03/10/17 08:00 03/10/17 08:00 03/10/17 08:00 03/10/17 08:00 03/10/17 08:00 Microbiology 03/07/17 16:13 Gram Stain - Final Pleural Fluid - Aspirate 03/04/17 16:42 Blood Culture - Final Blood 03/04/17 16:35 Blood Culture - Final Blood 03/04/17 16:19 Gram Stain - Final Pleural Fluid - Aspirate Laboratory Results 03/09/17 04:45 03/09/17 04:45 03/09/17 03/10/17 03/11/17 05:59 05:59 05:59 Intake Total 1750 2480 Output Total 1400 4205 600 Balance 350 -186 -600 ICD10 Worksheet Patient Problems: Problems Problem Status Onset C. difficile colitis Acute 12/30/14
[2017-03-10] MEDS: SENNOSIDES/DOCUSATE SODIUM TAB PO SCH ×2 (09:24→21:21)
[2017-03-10] MEDS: IBUPROFEN 600 MG TAB PO SCH ×3 (09:24→23:35)
[2017-03-10] MEDS: VITAMIN B COMPLEX 1 EA CAP/TAB PO SCH (09:24)
[2017-03-10] MEDS: CALCIUM CARBONATE 500 MG TAB PO SCH ×2 (09:25→21:21)
[2017-03-10] MEDS: ASCORBIC ACID 500 MG TAB PO SCH ×2 (09:25→21:21)
[2017-03-10] MEDS: VANCOMYCIN 125 MG/2.5 ML UDL PO SCH ×2 (09:25→21:19)
[2017-03-10] MEDS: OMEGA-3 FATTY ACIDS 1,000 MG CAP PO SCH ×2 (09:25→21:21)
[2017-03-10] MEDS: PANTOPRAZOLE SODIUM 40 MG TAB PO SCH (09:25)
[2017-03-10] MEDS: DOCUSATE SODIUM 100 MG CAP PO SCH ×2 (09:25→21:21)
[2017-03-10] MEDS: LIDOCAINE 5% 1 EA PATCH TD SCH (09:26)
--- NOTE | 2017-03-10 13:19 | PCMIDPN ---
Assessment/Plan: Assessment/Plan: 1. Post-operative Empyema secondary to Enterococcus: - s/p chest tube and most recently 8F heimlich valve place yesterday. 150ml of brownish fluid aspirated out - wbc overall improved. creatinine stable. - check vanco trough later today. -follow labs in AM 2. History of C. diff - continue oral vanco 3. Multiple antibiotic allergies: - pcn, amox, cipro, clinda Meds vanco 1g daily- vanco po 125mg bid Subjective: Afebrile. Tired. Denies sob. c/o mild anterior chest pain. denies abd pain or diarrhea. Objective: Vital Signs Temp Pulse Resp BP Pulse Ox 36.8 C 99 16 133/69 H 94 03/10/17 11:29 03/10/17 11:29 03/10/17 11:29 03/10/17 11:29 03/10/17 11:29 Microbiology 03/04/17 16:19 Gram Stain - Final Pleural Fluid - Aspirate 03/07/17 16:13 Gram Stain - Final Pleural Fluid - Aspirate 03/04/17 16:42 Blood Culture - Final Blood 03/04/17 16:35 Blood Culture - Final Blood Laboratory Results 03/09/17 04:45 03/09/17 04:45 03/09/17 03/10/17 03/11/17 05:59 05:59 05:59 Intake Total 1750 2480 480 Output Total 1400 2666 850 Balance 350 -041 -370 - Physical Exam General Appearance: alert, no apparent distress Respiratory: coarse breath sounds Cardiac/Chest: regular rate, rhythm Extremities: No swelling Abdomen: normal bowel sounds, non-tender, soft, No distended Skin: No erythema ICD10 Worksheet Patient Problems: Problems Problem Status Onset C. difficile colitis Acute 12/30/14
[2017-03-10] MEDS: VANCOMYCIN HCL/NORMAL SALINE 250 ML IV SCH (14:23)
[2017-03-10] MEDS: ALBUTEROL 200 PUFFS/18 GM MDI IH PRN ×2 (16:16→21:36)
[2017-03-10] MEDS: ATORVASTATIN CALCIUM 10 MG TAB PO SCH (21:20)
[2017-03-10] MEDS: PATCH REMOVAL 1 EA PATCH TD SCH (21:35)
[2017-03-11] MEDS: VANCOMYCIN HCL/NORMAL SALINE 250 ML IV SCH ×2 (03:27→14:46)
[2017-03-11] MEDS: OXYCODONE/APAP 5/325 TAB PO PRN ×4 (03:52→22:11)
[2017-03-11 06:09] LABS: % IMMATURE GRANULYOCYTES 0.6 % (0.0-1.1); ABSOLUTE IMMATURE GRANULOCYTES 0.07 10^3/uL (0.00-0.10); ADD DIFF? NO; ADD MORPH? NO; ADD SCAN? NO; ATYPICAL LYMPHOCYTE FLAG 20 (0-99); FRAGMENT RBC FLAG 0 (0-99); HEMATOCRIT 27.6 % (38.0-47.0); HEMOGLOBIN 8.7 g/dL (12.6-16.3); LEFT SHIFT FLG 0 (0-99); LIPEMIA HEMOLYSIS FLAG 80 (0-99); MEAN CELL HEMOGLOBIN 30.5 pg (27.9-34.1); MEAN CELL HEMOGLOBIN CONCENTR. 31.5 g/dL (32.4-36.7); MEAN CELL VOLUME 96.8 fL (81.5-99.8); MEAN PLATELET VOLUME 9.6 fL (8.7-11.7); PLATELET CLUMPS FLAG 10 (0-99); PLATELET COUNT 516 10^3/uL (150-400); RED BLOOD CELL COUNT 2.85 10^6/uL (4.18-5.33); RED CELL DISTRIBUTION WIDTH 13.2 % (11.5-15.2)
[2017-03-11 06:32] LABS: ANION GAP 9 mEq/L (8-16); CALCIUM 8.9 mg/dL (8.5-10.4); CARBON DIOXIDE 29 mEq/l (22-31); CHLORIDE 102 mEq/L (97-110); CREATININE 0.5 mg/dL (0.6-1.0); GLOMERULAR FILTRATION RATE > 60; GLUCOSE 83 mg/dL (70-100); POTASSIUM 4.4 mEq/L (3.5-5.2); SODIUM 140 mEq/L (134-144)
[2017-03-11] MEDS: ALBUTEROL 200 PUFFS/18 GM MDI IH PRN ×2 (08:56→20:40)
[2017-03-11] MEDS: VANCOMYCIN 125 MG/2.5 ML UDL PO SCH ×2 (08:57→20:06)
[2017-03-11] MEDS: LIDOCAINE 5% 1 EA PATCH TD SCH (08:57)
[2017-03-11] MEDS: DOCUSATE SODIUM 100 MG CAP PO SCH ×2 (08:58→22:08)
[2017-03-11] MEDS: ASCORBIC ACID 500 MG TAB PO SCH ×2 (08:58→20:05)
[2017-03-11] MEDS: IBUPROFEN 600 MG TAB PO SCH ×2 (08:58→16:43)
[2017-03-11] MEDS: SENNOSIDES/DOCUSATE SODIUM TAB PO SCH ×2 (08:58→20:17)
[2017-03-11] MEDS: PANTOPRAZOLE SODIUM 40 MG TAB PO SCH (08:59)
[2017-03-11] MEDS: CALCIUM CARBONATE 500 MG TAB PO SCH ×2 (08:59→20:05)
[2017-03-11] MEDS: VITAMIN B COMPLEX 1 EA CAP/TAB PO SCH (08:59)
[2017-03-11] MEDS: OMEGA-3 FATTY ACIDS 1,000 MG CAP PO SCH ×2 (08:59→20:05)
--- NOTE | 2017-03-11 10:45 | SOAPPROG ---
SOAP Progress Note Assessment/Plan: Assessment: 72 yo female s/p RLL resection, readmitted with right PTX and pleural effusion after [place] home to [place]. Now s/p right VATS with thoracotomy, partial lobectomy, decortication, oversew of pleural leak. Airleak resolved CXR yesterday demonstrated persistent right PTX. Repeat CXR today Will clamp apical chest tube at 4am 03/12/17 with repeat CXR at 8am 03/12/17. Heimlich in place draining serosang fluid. Continue pain control Albuterol PRN for wheezing Norvasc given for HBP PICC line in place Appreciate ID for antibiotic recs Appreciate hospitalists S: Feels better today. Breathing improved with Albuterol INH. Pain controlled. Denies SOB, N/V/D/C. O: Afebrile, NAD MMM Chest tube to Pleuravac/suction. No air leak. Draining serosang fluid Diminished breath sounds on right. Wheezing bilaterally. No increased WOB. 03/11/17 13:08 Objective: Vital Signs Temp Pulse Resp BP Pulse Ox 36.4 C 108 H 20 111/100 H 80 L 03/11/17 08:00 03/11/17 08:00 03/11/17 08:00 03/11/17 10:23 03/11/17 08:00 Microbiology 03/07/17 16:13 Gram Stain - Final Pleural Fluid - Aspirate 03/04/17 17:00 Mycobacterial Smear (ESPERANZA) - Final Pleural Fluid - Aspirate 03/04/17 16:19 Gram Stain - Final Pleural Fluid - Aspirate 03/04/17 16:42 Blood Culture - Final Blood 03/04/17 16:35 Blood Culture - Final Blood Laboratory Results 03/11/17 05:45 03/11/17 05:45 03/10/17 03/11/17 03/12/17 05:59 05:59 05:59 Intake Total 2480 480 350 Output Total 1189 3175 450 Balance -186 -3390 -100 ICD10 Worksheet Patient Problems: Problems Problem Status Onset C. difficile colitis Acute 12/30/14
--- NOTE | 2017-03-11 11:09 | PCMIDPN ---
Assessment/Plan: Assessment: Postoperative empyema secondary to Enterococcus faecalis. Status post chest tube placement. Covering with vancomycin. No significant toxicities at this point. Will continue at current dosing schedule. History of severe C diff colitis. Will continue vancomycin 125 mg p.o. twice daily. Do not regard IV vancomycin as a significant risk however patient has received broad-spectrum Gram-negative and anaerobe coverage during this stay. Plan: 1. Continue vancomycin 1 g IV Q 24. 2. Continue p.o. vancomycin for C diff prophylaxis. 3. Follow clinical course. Subjective: Patient is resting in her hospital room. She denies any new complaint. Breathing well. No fevers or chills. Tolerating vancomycin without issue. Objective: Vancomycin 1 g IV Q 12 hours. Vital Signs Temp Pulse Resp BP Pulse Ox 36.4 C 108 H 20 111/100 H 80 L 03/11/17 08:00 03/11/17 08:00 03/11/17 08:00 03/11/17 10:23 03/11/17 08:00 Microbiology 03/07/17 16:13 Gram Stain - Final Pleural Fluid - Aspirate 03/04/17 17:00 Mycobacterial Smear (ESPERANZA) - Final Pleural Fluid - Aspirate 03/04/17 16:19 Gram Stain - Final Pleural Fluid - Aspirate 03/04/17 16:42 Blood Culture - Final Blood 03/04/17 16:35 Blood Culture - Final Blood Laboratory Results 03/11/17 05:45 03/11/17 05:45 03/10/17 03/11/17 03/12/17 05:59 05:59 05:59 Intake Total 2480 480 350 Output Total 9246 9220 450 Balance -186 -3390 -100 - Physical Exam General Appearance: WD/WN, alert, no apparent distress, thin, non-toxic Respiratory: lungs clear, normal breath sounds, No respiratory distress Cardiac/Chest: regular rate, rhythm, No tachycardia Skin: normal color, warm/dry, No rash Neuro/Psych: alert, normal mood/affect, oriented x 3 ICD10 Worksheet Patient Problems: Problems Problem Status Onset C. difficile colitis Acute 12/30/14
[2017-03-11] MEDS: ATORVASTATIN CALCIUM 10 MG TAB PO SCH (20:06)
[2017-03-11] MEDS: PATCH REMOVAL 1 EA PATCH TD SCH (22:09)
[2017-03-12] MEDS: IBUPROFEN 600 MG TAB PO SCH ×3 (01:05→17:43)
[2017-03-12] MEDS: VANCOMYCIN HCL/NORMAL SALINE 250 ML IV SCH (01:05)
[2017-03-12] MEDS: OXYCODONE/APAP 5/325 TAB PO PRN ×4 (02:28→22:13)
[2017-03-12] MEDS: DOCUSATE SODIUM 100 MG CAP PO SCH ×2 (08:03→22:03)
[2017-03-12] MEDS: VANCOMYCIN 125 MG/2.5 ML UDL PO SCH ×2 (08:03→22:01)
[2017-03-12] MEDS: OMEGA-3 FATTY ACIDS 1,000 MG CAP PO SCH ×2 (08:03→22:02)
[2017-03-12] MEDS: VITAMIN B COMPLEX 1 EA CAP/TAB PO SCH (08:03)
[2017-03-12] MEDS: PANTOPRAZOLE SODIUM 40 MG TAB PO SCH (08:03)
[2017-03-12] MEDS: ASCORBIC ACID 500 MG TAB PO SCH ×2 (08:03→22:03)
[2017-03-12] MEDS: CALCIUM CARBONATE 500 MG TAB PO SCH ×2 (08:03→22:02)
[2017-03-12] MEDS: LIDOCAINE 5% 1 EA PATCH TD SCH (08:06)
[2017-03-12] MEDS: SENNOSIDES/DOCUSATE SODIUM TAB PO SCH ×2 (08:06→22:03)
[2017-03-12] MEDS: ALBUTEROL 200 PUFFS/18 GM MDI IH PRN ×2 (10:21→22:03)
--- NOTE | 2017-03-12 10:21 | PCMIDPN ---
Assessment/Plan: #Postoperative empyema with cultures showing enterococcus: currently with 2 CT remaining --continue IV vancomycin for now --will try test dose of PCN IV to assess prior possible allergy # history of severe C diff -- continue suppressive vanco # multiple antibiotic allergies medications, #5 vancomycin 1 g IV daily, # 5 microbiology 03/04 pleural fluid cultures 4+ kaba susceptible Enterococcus 03/04 blood cultures ( 2) NGTD 03/07 blood cultures (2) pending 03/08 pleural fluid 1+ GPCs, enterococcus, S: PCN doxycycline (will be reported today) Subjective: patient feeling well, really wants to be discharged from hospital Objective: Vital Signs Temp Pulse Resp BP Pulse Ox 36.6 C 83 16 134/81 H 92 03/12/17 07:50 03/12/17 07:50 03/12/17 07:50 03/12/17 07:50 03/12/17 07:50 Microbiology 03/07/17 16:13 Gram Stain - Final Pleural Fluid - Aspirate Body Fluid Culture - Final Enterococcus Faecalis 03/04/17 16:19 Gram Stain - Final Pleural Fluid - Aspirate Anaerobic Culture - Final Enterococcus Faecalis Laboratory Results 03/11/17 05:45 03/11/17 05:45 03/11/17 03/12/17 03/13/17 05:59 05:59 05:59 Intake Total 480 2000 Output Total 3870 4205 Balance -5010 -2201 - Physical Exam General Appearance: alert, no apparent distress EENT: No scleral icterus Respiratory: crackles (L mid lung field), other (musical sounds relating to presence of CTs) Neck: supple Cardiac/Chest: regular rate, rhythm Extremities: No pedal edema Skin: No rash Neuro/Psych: alert, normal mood/affect, oriented x 3 - Line/s LUE PICC Lines: No drainage, No erythema - Time Spent With Patient Time Spent with Patient: greater than 35 minutes (reviewed antibiotic allergies , home IV antibiotics) Time Spent with Patient: Greater than 35 minutes spent on this patients care, greater than 50% of time spent counseling, educating, and coordinating care regarding the above mentioned plan. ICD10 Worksheet Patient Problems: Problems Problem Status Onset C. difficile colitis Acute 12/30/14
[2017-03-12] MEDS ORDERED: D5W IV ONE (11:00)
[2017-03-12] MEDS ORDERED: PENICILLIN POTASSIUM IV ONE (11:00)
--- NOTE | 2017-03-12 14:42 | SOAPPROG ---
SOAP Progress Note Assessment/Plan: Assessment: 72 yo female s/p RLL resection, readmitted with right PTX and pleural effusion after [place] home [place]. Now s/p right VATS with thoracotomy, partial lobectomy, decortication, oversew of pleural leak. Airleak resolved CXR today demonstrated no change from previous. Apical chest tube pulled. Repeat CXR tomorrow, if no changes will pull second chest tube. Continue pain control Albuterol PRN for wheezing PICC line in place Appreciate ID for antibiotic recs. Tolerated PCN trial. Appreciate hospitalists Dispo: likely to SNF in [place] tomorrow on PO PCN. S: Feels good today. Breathing improved with Albuterol INH. Pain controlled. Denies SOB, N/V/D/C. O: Afebrile, NAD MMM Chest tube to air. No air leak. Draining serosang fluid Diminished breath sounds on right. Wheezing bilaterally. No increased WOB. Objective: Vital Signs Temp Pulse Resp BP Pulse Ox 36.6 C 95 18 116/66 97 03/12/17 11:28 03/12/17 11:28 03/12/17 11:28 03/12/17 11:28 03/12/17 11:28 Microbiology 03/07/17 16:13 Gram Stain - Final Pleural Fluid - Aspirate Body Fluid Culture - Final Enterococcus Faecalis 03/04/17 16:19 Gram Stain - Final Pleural Fluid - Aspirate Anaerobic Culture - Final Enterococcus Faecalis Laboratory Results 03/11/17 05:45 03/11/17 05:45 03/11/17 03/12/17 03/13/17 05:59 05:59 05:59 Intake Total 255 1999 Output Total 0041 9702 Balance -0623 -7299 ICD10 Worksheet Patient Problems: Problems Problem Status Onset C. difficile colitis Acute 12/30/14
[2017-03-12] MEDS: PENICILLIN G POTASSIUM 4,000,000 UNIT in D5W 100 ML IV SCH ×3 (14:56→21:48)
[2017-03-12] MEDS: ATORVASTATIN CALCIUM 10 MG TAB PO SCH (22:02)
[2017-03-12] MEDS: PATCH REMOVAL 1 EA PATCH TD SCH (22:15)
[2017-03-13] MEDS: PENICILLIN G POTASSIUM 4,000,000 UNIT in D5W 100 ML IV SCH ×4 (03:18→13:32)
[2017-03-13] MEDS: OXYCODONE/APAP 5/325 TAB PO PRN ×2 (03:37→10:08)
[2017-03-13] MEDS: PANTOPRAZOLE SODIUM 40 MG TAB PO SCH (08:14)
[2017-03-13] MEDS: IBUPROFEN 600 MG TAB PO SCH ×2 (08:14)
[2017-03-13] MEDS: ASCORBIC ACID 500 MG TAB PO SCH (08:15)
[2017-03-13] MEDS: CALCIUM CARBONATE 500 MG TAB PO SCH (08:15)
[2017-03-13] MEDS: VITAMIN B COMPLEX 1 EA CAP/TAB PO SCH (08:15)
[2017-03-13] MEDS: OMEGA-3 FATTY ACIDS 1,000 MG CAP PO SCH (08:15)
[2017-03-13] MEDS: SENNOSIDES/DOCUSATE SODIUM TAB PO SCH (08:16)
[2017-03-13] MEDS: LIDOCAINE 5% 1 EA PATCH TD SCH (08:16)
[2017-03-13] MEDS: DOCUSATE SODIUM 100 MG CAP PO SCH (08:16)
[2017-03-13] MEDS: VANCOMYCIN 125 MG/2.5 ML UDL PO SCH (08:16)
[2017-03-13 08:26] LABS: % IMMATURE GRANULYOCYTES 0.7 % (0.0-1.1); ABSOLUTE IMMATURE GRANULOCYTES 0.09 10^3/uL (0.00-0.10); ADD DIFF? NO; ADD MORPH? NO; ADD SCAN? NO; ATYPICAL LYMPHOCYTE FLAG 0 (0-99); FRAGMENT RBC FLAG 0 (0-99); HEMATOCRIT 32.8 % (38.0-47.0); HEMOGLOBIN 10.4 g/dL (12.6-16.3); LEFT SHIFT FLG 0 (0-99); LIPEMIA HEMOLYSIS FLAG 80 (0-99); MEAN CELL HEMOGLOBIN 30.4 pg (27.9-34.1); MEAN CELL HEMOGLOBIN CONCENTR. 31.7 g/dL (32.4-36.7); MEAN CELL VOLUME 95.9 fL (81.5-99.8); MEAN PLATELET VOLUME 9.4 fL (8.7-11.7); PLATELET CLUMPS FLAG 10 (0-99); PLATELET COUNT 585 10^3/uL (150-400); RED BLOOD CELL COUNT 3.42 10^6/uL (4.18-5.33); RED CELL DISTRIBUTION WIDTH 13.2 % (11.5-15.2)
--- NOTE | 2017-03-13 09:00 | PDIAF ---
- Diagnosis Diagnosis: Enterococcal empyema Code Status: Full Code - Medication Management Discharge Medications: Medications to Continue on Transfer Ascorbic Acid [Vitamin C 500 mg (*)] 1,000 mg PO BID 01/09/17 [Last Taken ] Calcium [HI-JUAN MANUEL] 500 mg PO BID 01/09/17 [Last Taken 01/27/17] Esomeprazole Mag Trihydrate [Nexium] 40 mg PO DAILY 01/09/17 [Last Taken ] Fish Oil/Dha/Epa [Fish Oil 1,200 mg Fish Oil] 1 each PO BID 01/09/17 [Last Taken 01/27/17] Herbals/Supplements -Info Only 1 ea PO DAILY 01/09/17 [Last Taken 01/27/17] Simvastatin [Zocor] 20 mg PO HS 01/09/17 [Last Taken 01/27/17] Vitamin B Complex [B Complex] 1 each PO DAILY 01/09/17 [Last Taken 01/27/17] oxyCODONE/APAP 5/325 [Percocet 5/325 (*)] 1 - 2 tab PO Q4HRS PRN #30 tab [Last Taken Unknown] Estrogens,Conjugated [Premarin Vaginal (*)] 1 jose VG [id number] 01/28/17 [Last Taken Unknown] Assisted Antibiotics: penicillin 24MU IV continuous infusion Assisted Antibiotic Stop Date: 03/21/17 (can also give penicillin 2MU IV [id number]) Discharge Medications: Refer to the Discharge Home Medication list for PRN reason. PICC Care - Routine: Yes - Orders Services needed: Registered Nurse, Physical Therapy - Labs/Radiology CBC Date: 03/16/17 (Thursday Weekly) CMP Date: 03/16/17 - Follow Up Care Current Providers and Referrals: José Wan MD [Primary Care Provider] - Juanjose Smith MD [Medical Doctor] - Pattie Marrufo MD [Medical Doctor] - 03/20/17 11:00 am
[2017-03-13 09:03] LABS: ALANINE AMINOTRANSFERASE 23 IU/L (9-52); ALBUMIN 3.1 g/dL (3.5-5.0); ALKALINE PHOSPHATASE 109 IU/L (38-126); ANION GAP 11 mEq/L (8-16); ASPARTATE AMINOTRANSFERASE 16 IU/L (14-46); BILIRUBIN,TOTAL 0.4 mg/dL (0.1-1.4); CALCIUM 9.8 mg/dL (8.5-10.4); CARBON DIOXIDE 28 mEq/l (22-31); CHLORIDE 101 mEq/L (97-110); CREATININE 0.5 mg/dL (0.6-1.0); GLOMERULAR FILTRATION RATE > 60; GLUCOSE 96 mg/dL (70-100); POTASSIUM 4.3 mEq/L (3.5-5.2); SODIUM 140 mEq/L (134-144); TOTAL PROTEIN 6.3 g/dL (6.3-8.2)
[2017-03-13] MEDS: ALBUTEROL 200 PUFFS/18 GM MDI IH PRN (10:02)
--- NOTE | 2017-03-13 11:02 | SOAPPROG ---
SOAP Progress Note Assessment/Plan: Assessment: 72-year-old female status post VATS, recent right lower lobe lung resection, readmitted with pneumothorax and pleural effusion Pain from tube well controlled, no SOB, "sometimes chest feels little heavy but improved with albuterol, No chest pain. PE moves around easily, alert Chest CTA B/L, no wheezes Ht RRR Chest tube 90/24hrs, no leak Plan: Tube to be removed today by Dr Velasquez, supplies at bedside To [facility] after tube removal and F/U xray Objective: Vital Signs Temp Pulse Resp BP Pulse Ox 36.7 C 92 18 133/80 H 95 03/13/17 07:43 03/13/17 07:43 03/13/17 07:43 03/13/17 07:43 03/13/17 07:43 Microbiology 03/06/17 17:15 Blood Culture - Final Blood 03/06/17 17:15 Blood Culture - Final Blood 03/07/17 16:13 Gram Stain - Final Pleural Fluid - Aspirate Body Fluid Culture - Final Enterococcus Faecalis Laboratory Results 03/13/17 08:20 03/13/17 08:20 03/12/17 03/13/17 03/14/17 05:59 05:59 05:59 Intake Total 1999 1090 496 Output Total 8878 1590 500 Balance -2205 -500 -50 ICD10 Worksheet Patient Problems: Problems Problem Status Onset C. difficile colitis Acute 12/30/14
[2017-03-13 11:19] VITALS: RESP 20
--- NOTE | 2017-03-13 12:26 | PDHOMEO2F ---
Home Oxygen Face to Face Home Orders: I certify that a physician or a nurse practitioner or physician's research program assistant has had a obof-cd-eivn encounter with this patient on the date of this order due to the diagnosis listed, which relates to the primary reason the patient requires home oxygen. Alternative treatments have been tried, or considered, and deemed ineffective. It is anticipated that supplemental oxygen will result in improvement with treatment. Home oxygen qualifying diagnosis: pneumonia SpO2 on room air (%): 84 Frequency of home oxygen needed: continuous Home oxygen liters per minute: 1 Home oxygen delivery device: nasal cannula Concentrator: Yes E-tanks for mobility and back up: Yes If ordering portable O2, is the patient mobile in the home?: Yes I certify that, based on these findings, the home oxygen is medically necessary for this patient for the following length of time. Length of time home oxygen needed: 1 month
--- NOTE | 2017-03-13 12:30 | PDIAF ---
- Diagnosis Diagnosis: Enterococcal empyema Code Status: Full Code - Medication Management Discharge Medications: Medications to Continue on Transfer Ascorbic Acid [Vitamin C 500 mg (*)] 1,000 mg PO BID 01/09/17 [Last Taken ] Calcium [HI-JUAN MANUEL] 500 mg PO BID 01/09/17 [Last Taken 01/27/17] Esomeprazole Mag Trihydrate [Nexium] 40 mg PO DAILY 01/09/17 [Last Taken ] Fish Oil/Dha/Epa [Fish Oil 1,200 mg Fish Oil] 1 each PO BID 01/09/17 [Last Taken 01/27/17] Herbals/Supplements -Info Only 1 ea PO DAILY 01/09/17 [Last Taken 01/27/17] Simvastatin [Zocor] 20 mg PO HS 01/09/17 [Last Taken 01/27/17] Vitamin B Complex [B Complex] 1 each PO DAILY 01/09/17 [Last Taken 01/27/17] oxyCODONE/APAP 5/325 [Percocet 5/325 (*)] 1 - 2 tab PO Q4HRS PRN #30 tab [Last Taken Unknown] Estrogens,Conjugated [Premarin Vaginal (*)] 1 jose VG MOWEFR 01/28/17 [Last Taken Unknown] Long-Term Antibiotics: penicillin 24MU IV continuous infusion Long-Term Antibiotic Stop Date: 03/21/17 (can also give penicillin 2MU IV [id number]) Discharge Medications: Refer to the Discharge Home Medication list for PRN reason. PICC Care - Routine: Yes - Orders Services needed: Home Care, Registered Nurse, Physical Therapy Home Care Face to Face: I certify that this patient was under my care and that I had the required ahom-cx-caht encounter meeting the encounter requirements on the discharge day. My findings support the fact that the patient is homebound as defined in CMS Chapter 7 Medicare Benefits Manual 30.1.1, The condition of the patient is such that there exists a normal inability to leave home and consequently, leaving home would require a considerable and taxing effort. Diet Recommendation: no restrictions on diet Diet Texture: Regular Texture Diet - Labs/Radiology CBC Date: 03/16/17 (Thursday Weekly) CMP Date: 03/16/17 - Follow Up Care Current Providers and Referrals: José Wan MD [Primary Care Provider] - Juanjose Smith MD [Medical Doctor] - Pattie Marrufo MD [Medical Doctor] - 03/20/17 11:00 am
--- NOTE | 2017-03-13 14:51 | PCMIDPN ---
Assessment/Plan: Assessment: Postoperative empyema secondary to Enterococcus faecalis. Status post chest tube placement. Covering currently with IV penicillin now that she has tolerated her initial dose yesterday. No significant toxicities at this point. Plan to continue this at 12:00 p.m. hour drip dosing as an outpatient. History of severe C diff colitis. Will continue vancomycin 125 mg p.o. twice daily. Recurrence of C diff colitis might be increased given use of penicillin. Plan: 1. Continue IV penicillin in 24 hour drip via PICC line as an outpatient. 2. Continue p.o. vancomycin for C diff prophylaxis. 3. Follow up in clinic in 7-10 days. 03/13/17 14:51 Subjective: Patient is resting in her hospital bed. She states that she is doing well. Anxious to go home. Denies fevers or chills. No rash or breathing difficulties with penicillin dosing. Objective: IV penicillin G # 1 Vital Signs Temp Pulse Resp BP Pulse Ox 37.1 C 100 20 114/88 H 87 L 03/13/17 11:16 03/13/17 11:16 03/13/17 11:16 03/13/17 11:16 03/13/17 14:08 Microbiology 03/06/17 17:15 Blood Culture - Final Blood 03/06/17 17:15 Blood Culture - Final Blood 03/07/17 16:13 Gram Stain - Final Pleural Fluid - Aspirate Body Fluid Culture - Final Enterococcus Faecalis Laboratory Results 03/13/17 08:20 03/13/17 08:20 03/12/17 03/13/17 03/14/17 05:59 05:59 05:59 Intake Total 1999 1090 450 Output Total 4205 1590 950 Balance -2205 -500 -500 - Physical Exam General Appearance: WD/WN, alert, no apparent distress, thin, non-toxic Respiratory: lungs clear, normal breath sounds, No respiratory distress Cardiac/Chest: regular rate, rhythm, No tachycardia Skin: normal color, warm/dry, No rash Neuro/Psych: alert, normal mood/affect, oriented x 3 ICD10 Worksheet Patient Problems: Problems Problem Status Onset C. difficile colitis Acute 12/30/14
[2017-03-13 15:12] VITALS: BP 131/74; PULSE 104; TEMP 98.3; O2SAT 93
== END 2017-03-13 17:13 | disposition home health service (06) | DRG 163 ==
LOC: F3E 10:36 → F2N 14:06 → F2W 01-29 08:03 → F2N 02-23 11:03 → F3E 02-25 12:15
PROVIDERS: ADMIT Surgery; ATTEND Surgery
PROC: 0B9K30Z Drainage of Right Lung with Drainage Device, Percutaneous Approach (ICD-10-PCS; 2017-01-28)
PROC: 0W9930Z Drainage of Right Pleural Cavity with Drainage Device, Percutaneous Approach (ICD-10-PCS; 2017-01-30)
PROC: 0B5N0ZZ Destruction of Right Pleura, Open Approach (ICD-10-PCS; principal; 2017-02-23 08:30)
PROC: 3E0L3GC Introduction of Other Therapeutic Substance into Pleural Cavity, Percutaneous Approach (ICD-10-PCS; principal; 2017-02-23 08:30)
PROC: 0BBC0ZX Excision of Right Upper Lung Lobe, Open Approach, Diagnostic (ICD-10-PCS; principal; 2017-02-23 08:30)
PROC: 0W9930Z Drainage of Right Pleural Cavity with Drainage Device, Percutaneous Approach (ICD-10-PCS; 2017-02-24)
PROC: 0W9930Z Drainage of Right Pleural Cavity with Drainage Device, Percutaneous Approach (ICD-10-PCS; 2017-03-03)
PROC: 0W9930Z Drainage of Right Pleural Cavity with Drainage Device, Percutaneous Approach (ICD-10-PCS; 2017-03-07)
DX: J95.89 Other postprocedural complications and disorders of respiratory system, not elsewhere classified (principal); J95.811 Postprocedural pneumothorax; J90 Pleural effusion, not elsewhere classified; T81.4XXA Infection following a procedure, initial encounter; J86.9 Pyothorax without fistula; B95.2 Enterococcus as the cause of diseases classified elsewhere; J95.812 Postprocedural air leak; Z90.2 Acquired absence of lung [part of]; F41.8 Other specified anxiety disorders; J84.10 Pulmonary fibrosis, unspecified; K21.9 Gastro-esophageal reflux disease without esophagitis; E78.00 Pure hypercholesterolemia, unspecified
CPT/HCPCS: 97110-GP; 97116-GP; 97161-GP; 97165-GO; 97168-GO; 97530-GO; 97535-GO; C1729; C1751; C1769; C2617; G8978-GP-CI; G8979-GP-CH; G8979-GP-CI; G8980-GP-CI; G8987-GO-CI; G8988-GO-CH; G8988-GO-CI; G8989-GO-CI; J1100; J1170; J1335; J1885; J2001; J2250; J2370; J2405; J2540; J2704; J2997; J3010; J3370

== ENCOUNTER → 2017-03-18 | Outpatient (CLI) | payer OTHER | LOC: FIMAGING 12:19 | PROVIDERS: ATTEND Physician Assistant | DX: M54.5 Low back pain (principal); Z98.1 Arthrodesis status; J94.8 Other specified pleural conditions ==

== ENCOUNTER → 2017-03-25 | Outpatient (CLI) | payer OTHER | LOC: FIMAGING 12:32 | PROVIDERS: ATTEND Surgery | DX: Z48.813 Encounter for surgical aftercare following surgery on the respiratory system (principal) ==

== ENCOUNTER → 2017-04-07 | Outpatient (CLI) | payer OTHER | LOC: FIMAGING 12:12 | PROVIDERS: ATTEND Internal Medicine Infectious Disease | DX: J86.9 Pyothorax without fistula (principal) ==

== ENCOUNTER → 2017-04-15 | Outpatient (CLI) | payer OTHER | LOC: FIMAGING 12:34 → EDSTATUS 12:34 | PROVIDERS: ATTEND Internal Medicine Infectious Disease | DX: J86.9 Pyothorax without fistula (principal); Z98.890 Other specified postprocedural states ==

== ENCOUNTER → 2017-04-29 | Outpatient (CLI) | payer OTHER | LOC: FIMAGING 14:27 → FLAB 14:27 → EDSTATUS 14:28 | PROVIDERS: ATTEND Surgery | DX: J90 Pleural effusion, not elsewhere classified (principal) ==

== ENCOUNTER → 2017-05-27 | Outpatient (CLI) | payer OTHER | LOC: FIMAGING 13:42 | PROVIDERS: ATTEND Surgery | DX: J90 Pleural effusion, not elsewhere classified (principal); J93.9 Pneumothorax, unspecified ==

== ENCOUNTER → 2017-07-29 | Outpatient (CLI) | payer OTHER | LOC: FIMAGING 12:50 → EDSTATUS 12:51 | PROVIDERS: ATTEND Surgery | DX: J90 Pleural effusion, not elsewhere classified (principal); Z90.2 Acquired absence of lung [part of] ==

== ENCOUNTER → 2017-10-28 | Outpatient (CLI) | payer OTHER | LOC: FIMAGING 12:54 → EDSTATUS 12:55 | PROVIDERS: ATTEND Surgery | DX: J90 Pleural effusion, not elsewhere classified (principal) ==

== ENCOUNTER → 2018-02-03 | Outpatient (CLI) | payer OTHER | LOC: FIMAGING 12:24 | PROVIDERS: ATTEND Surgery | DX: J94.2 Hemothorax (principal) ==

== ENCOUNTER → 2018-03-19 | Outpatient (CLI) | payer OTHER | LOC: FIMAGING 12:30 | PROVIDERS: ATTEND Physician Assistant Surgical | DX: Z09 Encounter for follow-up examination after completed treatment for conditions other than malignant neoplasm (principal); M51.36 Other intervertebral disc degeneration, lumbar region ==

== ENCOUNTER → 2018-07-02 | Outpatient (CLI) | payer OTHER ==
[~2018-07-02] MED LIST: IOPAMIDOL (ISOVUE 370) 100 ML BTL IV ONE
== END ==
LOC: FIMAGING 13:21
PROVIDERS: ATTEND Internal Medicine
DX: I71.2 Thoracic aortic aneurysm, without rupture (principal); Z90.2 Acquired absence of lung [part of]
CPT/HCPCS: 71275; Q9967; 82565-PO

== ENCOUNTER → 2018-08-03 | Outpatient (CLI) | payer OTHER | LOC: FIMAGING 10:52 | PROVIDERS: ATTEND Family Medicine | DX: Z09 Encounter for follow-up examination after completed treatment for conditions other than malignant neoplasm (principal); Z90.2 Acquired absence of lung [part of] ==